=== PATIENT | male | born 1980 | race Caucasian/White ===

== ENCOUNTER → 2016-12-15 | Outpatient (CLI) | payer MEDICARE, MEDICAID ==
[~2016-12-15] MED LIST: AC325T PO; ACET1TAB43 PO; ALPR1T PO; ALPR2TAB2 PO; CLAR500T3 PO; CRS350T; CTLP20T PO; CYCL10TA9 PO; DEPAKOTE; ENOX30DI9 SQ; GBPN100C PO; HYDR-3720; HYDR1TAB PO; IBP800T PO; METO10TA3 PO; NF-ESOM40C; NFR150C PO; NORT25CA PO; ONDAN4ODT PO; OXYC-306 PO; OXYC1TAB28 PO; OXYC20TA4 PO; OXYC5TAB49 PO; SULF1TAB35 PO; TRM50T PO; XANAX; [UNRECOGNIZED DRUG - CODE] IV
--- NOTE | 2016-12-15 11:01 | Diagnostic Imaging Report ---
PROCEDURE: MRI right joint lower extremity without contrast. TECHNIQUE: Multiplanar, multisequence non contrast-enhanced MRI of the right lower extremity was accomplished. INDICATION: Right knee pain. History of internal fixation of proximal tibia fracture. FINDINGS: There is susceptibility artifact related to multiple internal fixating screws through the proximal tibia. Areas of visible marrow around the artifacts demonstrate no evidence of an acute bone contusion or focal bone lesion. In the lateral tibial plateau, there is a focal area of depression about 5 mm from the surface of the tibial plateau and measuring 4 mm in transverse dimension with significant anterior posterior extension throughout the lateral tibial plateau. There is also slight focal depression in the central aspect of the medial tibial plateau. There is evidence of mild to moderate cartilage thinning in the medial and lateral compartments with no significant cartilage thinning in the patellofemoral compartment. The extensor mechanism is intact. The ACL and the PCL are intact. There is degenerative signal in the posterior horn and body of the medial meniscus and attenuation of the posterior meniscus root. This could be degenerative and posttraumatic related with no acute tear. The lateral meniscus is largely absent. Thickened portion of the distal aspect of the popliteus tendon mimics and is displaced into expected location of the outer aspect of the posterior horn of the lateral meniscus. There are portions of central meniscus material seen presumably related to a bucket-handle tear along the posterior aspect of the intercondylar notch abutting the posterior margin of the ACL. The lateral collateral ligament components and MCL demonstrates no acute tear. There is no popliteal cyst. IMPRESSION: 1. Evidence of old fractures in the proximal tibia with internal fixation screws seen. 2. The lateral tibial plateau healed with an elongated depression deformity in its central aspect extending from the anterior to posterior aspect of the lateral tibial plateau. 3. There is moderate cartilage thinning in the medial and lateral compartments. 4. Largely macerated lateral meniscus with suggestion of remaining lateral meniscus torn fibers displaced into the posterior aspect of the intercondylar notch. 5. Thinning of the posterior root of the medial meniscus and degenerative signal, likely sequela of the old injury. Dictated by: Dictated on workstation # [id number]
== END ==
LOC: RAD 09:04
PROVIDERS: ATTEND Nurse Practitioner
DX: S83.271A Complex tear of lateral meniscus, current injury, right knee, initial encounter (principal); R93.8 Abnormal findings on diagnostic imaging of other specified body structures; X58.XXXA Exposure to other specified factors, initial encounter; Y99.8 Other external cause status
CPT/HCPCS: 73721

== ENCOUNTER 2018-02-11 18:04 | Inpatient (IN) | payer MEDICAID, MEDICARE ==
[~2018-02-11] VITALS: Ht 185.4 cm; Wt 108.0 kg
[2018-02-11] MEDS ORDERED: VORT5TAB (18:22)
[2018-02-11] MEDS ORDERED: GABA800T2 (18:22)
[2018-02-11] MEDS ORDERED: DICL75TA2 (18:22)
--- OUTSIDE RECORDS SUMMARY | 2018-02-11 18:37 | XMS REPORT ---
Author RENU Angelo [facility] eClinicalWorks Address Unknown Phone Unavailable Care Team Providers Care Cardiology Fellow Name Role Phone RENU ARRIAGA CP Unavailable Allergies, Adverse Reactions, Alerts Substance Reaction Event Type Codeine Info Not Available Drug Allergy Problems Problem Type Condition Code Onset Dates Condition Status Problem Phantom limb pain G54.6 Active Problem History of left above knee amputation Z89.612 Active Problem Arthritis of right knee M19.90 Active Assessment Phantom limb pain G54.6 Active Assessment History of left above knee amputation Z89.612 Active Assessment Arthritis of right knee M19.90 Active Medications Medication Code System Code Instructions Start Date End Date Status Dosage Gabapentin [facility] [id number] 600 MG Orally Three times a day Jan 05, 2016 1 tablet Procedures Procedure Coding System Code Date Office Visit, Est Pt., Level 3 CPT-4 91046 Jan 05, 2016 [facility] VIS[facility] ESTABLISHED PATIENT CPT-4 G0467 Jan 05, 2016 Vital Signs Date/Time: Jan 05, 2016 Cardiac Monitoring Heart Rate 72 bpm Weight 234.4 lbs Height 73 in BMI 30.92 Index Blood Pressure Diastolic 75 mmHg Blood Pressure Systolic 110 mmHg Results No Known Results Summary Purpose eClinicalWorks Submission
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
--- OUTSIDE RECORDS SUMMARY | 2018-02-11 18:37 | XMS REPORT ---
Author Author RENU ARRIAGA [facility] Address [address] [place] [address] Care Team Providers Care Appliance Sales Associate Name Role Phone RENU ARRIAGA Unavailable PROBLEMS Type Condition ICD9-CM Code FAG95-IX Code Onset Dates Condition Status SNOMED Code Assessment Pain in right shoulder M25.511 Apr, Active 31240018 Problem Other chronic pain G89.29 Active 21750292 Problem Reactive depression F32.9 Active 16871471 Problem Phantom limb pain G54.6 Active 1254938072502 Problem History of left above knee amputation Z89.612 Active 754890226 Problem Anxiety F41.9 Active 47674792 Problem Arthritis of right knee M19.90 Active 378583029 ALLERGIES Substance Reaction Event Type Date Status Codeine Unknown Drug Allergy Apr, Active SOCIAL HISTORY No smoking Hx information available PLAN OF CARE VITAL SIGNS Height 73 in 2016-04-23 Weight 251.1 lbs 2016-04-23 Heart Rate 60 bpm 2016-04-23 Respiratory Rate 18 2016-04-23 BMI 33.13 kg/m2 2016-04-23 Blood pressure systolic 118 mmHg 2016-04-23 Blood pressure diastolic 76 mmHg 2016-04-23 MEDICATIONS Medication Instructions Dosage Frequency Start Date End Date Duration Status Gabapentin 600 MG Orally 4 times a day 1 tablet 6h Jan, Active Trintellix 5 mg orally once a day 1 tablet 24h Apr, Active RESULTS No Results PROCEDURES Procedure Date Ordered Related Diagnosis Body Site [facility] VISIT ESTABLISHED PATIENT Apr 23, 2016 Office Visit, Est Pt., Level 3 Apr 23, 2016 IMMUNIZATIONS No Known Immunizations
--- OUTSIDE RECORDS SUMMARY | 2018-02-11 18:37 | XMS REPORT ---
Author RENU Angelo Organization eClinical[employer] Address Unknown Phone Unavailable Care Team Providers Care Finishing Machine Tender Name Role Phone RENU ARRIAGA CP Unavailable Allergies No Known Allergies Problems Problem Type Condition Code Onset Dates Condition Status Problem Reactive depression F32.9 Active Problem Anxiety F41.9 Active Problem Other chronic pain G89.29 Active Problem History of left above knee amputation Z89.612 Active Problem Arthritis of right knee M19.90 Active Problem Phantom limb pain G54.6 Active Medications No Known Medications Results No Known Results Summary Purpose eClinicalWorks Submission
--- OUTSIDE RECORDS SUMMARY | 2018-02-11 18:37 | XMS REPORT ---
Author Author TELLY YI [facility] Address [address] [place] [address] Care Team Providers Care Supplier Engineer Name Role Phone TELLY YI Unavailable PROBLEMS Type Condition ICD9-CM Code GOZ26-ZJ Code Onset Dates Condition Status SNOMED Code Problem Phantom limb pain G54.6 Active 0642868941048 Problem History of left above knee amputation Z89.612 Active 527029811 Problem Acute medial meniscus tear of right knee, initial encounter S83.241A Active 916399823 Problem Degenerative tear of glenoid labrum of right shoulder M24.111 Active 160928208 Problem Anxiety F41.9 Active 03498051 Problem Arthritis of right knee M19.90 Active 588614312 Problem Other chronic pain G89.29 Active 00183947 Problem Reactive depression F32.9 Active 06502710 ALLERGIES No Information ENCOUNTERS Encounter Location Date Diagnosis [place] [id number] [place] [address]15- [address]46 Sep, Medicare annual wellness visit, initial Z00.00 ; History of left above knee amputation Z89.612 ; Phantom limb pain G54.6 ; Reactive depression F32.9 and BMI 32.0-32.9,adult Z68.32 [facility] [id number] [place] [address] 93368- 2778 May, Arthritis of right knee M19.90 [facility] [address] [address] May, [facility] [address] [id number] [place] [address] 70500- 4836 May, [facility] [address] [place] [id number] [place] [address] 56926- 4718 Apr, Acute medial meniscus tear of right knee, initial encounter S83.241A [facility] [address] [address] Apr, Acute medial meniscus tear of right knee, subsequent encounter S83.241D [facility] [address] [address] Mar, [facility] [id number] [place] [address] 26024- 2835 Mar, [facility] [id number] [place] [address] 25751- 2648 Dec, [facility] [id number] [place] [address] 76202- 6345 Dec, [facility] [id number] [place] [address] 26399- 3226 Dec, Acute medial meniscus tear of right knee, subsequent encounter S83.241D [facility] [address] [id number] [place] [address] 28413- 8301 Nov, Complex tear of lateral meniscus of right knee as current injury, initial encounter S83.271A and Impingement syndrome of right shoulder M75.41 [facility] [id number] [place] [address] 48562- 1172 October, [facility] [id number] [place] [address] 63603- 2235 Aug, Phantom limb pain G54.6 and Reactive depression F32.9 [facility] [address] [id number] [place] [address] 46336- 3156 Jun, Degenerative tear of glenoid labrum of right shoulder M24.111 [facility] [id number] [place] [address] 74046- 7478 Apr, [facility] [id number] [place] [address] 05016- 5600 Apr, [facility] [id number] [place] [address] 77777- 4382 Apr, [facility] [address] [place] [address] 81357- 0943 Apr, Pain in right shoulder M25.511 ; Other chronic pain G89.29 and Reactive depression F32.9 [facility] [id number] [place] [address] 66544- 6141 Mar, Phantom limb pain G54.6 ; Reactive depression F32.9 and History of left above knee amputation Z89.612 [facility] [id number] [place] [address] 75748- 0726 Feb, Anxiety F41.9 [facility] [id number] [place] [address] 03771- 6620 Jan, History of left above knee amputation Z89.612 ; Arthritis of right knee M19.90 and Phantom limb pain G54.6 [facility] [id number] [place] [address] 13908- 1287 Aug, Shoulder pain, right M25.511 [facility] [address] [place] [address] [id number] [place] [address] 98827- 8493 May, [facility] [id number] [place] [address] 79914- 3976 May, [facility] [id number] [place] [address] 18161- 4006 May, [facility] [id number] [place] [address] 41289 2541 May, [facility] [address] [place] [address] 34524- 1082 May, History of left above knee amputation Z89.612 and Nicotine dependence F17.200 [facility] [address] [place] [address] 94929- 2546 14 Sep, 2014 [facility] [address] [place] [address] [id number] [place] [address] 24880- 6753 Sep, [facility] [address] [id number] [place] [address] 6161 Aug, [facility] [place] [facility] [address] [id number] [place] [address]- 8741 Aug, [facility] [place] [facility] [address] [id number] [place] [address]- 6192 Jul, [facility] [place] [facility] [address] [id number] [place] [address]- 1418 Jul, [facility] [place] [facility] [address] [id number] [place] [address]- 8655 Feb, [facility] [place] [facility] [address] [id number] [place] [address]- 8166 Jan, [facility] [place] [facility] [address] [id number] [place] [address]- 9559 Nov, [facility] [place] [facility] [address] [id number] [place] [address]- 3578 Sep, [facility] [place] [facility] [address] [id number] [place] [address]- 8137 Jul, [facility] [place] [facility] [address] [id number] [place] [address]- 4457 Jul, [facility] [place] [facility] [address] [id number] [place] [address]- 7370 May, [facility] [place] [facility] [address] [id number], [place] [address]- 5205 May, [facility] [place] [facility] [address] [id number] [place] [address]- 7157 May, [facility] [place] [facility] [address] [id number] [place] [address]- 9405 May, [facility] [place] [facility] [address] [id number] [place] [address] May, [facility] [place] [facility] [address] [id number], [place] [address]- 0221 May, [facility] [place] [facility] [address] [id number] [place] [address]- 8838 Apr, [facility] [place] [facility] [id number] [address]- 9861 Apr, [facility] [place] [facility] [address] [place] [address] [id number] [place] [address]- 2720 Apr, [facility] [place] [facility] [address] [id number], [place] [address]- 6995 Apr, [facility] [place] [facility] [address] [place] [address] [id number] [place] [address]- 4125 Apr, [facility] [place] [facility] [id number] [address]- 1745 Apr, [facility] [place] [facility] [address] [address]- 6845 Apr, [facility] [place] [facility] [address] [address]- 2707 Apr, [facility] [place] [facility] [address] [address]- 9824 Mar, [facility] [address] [id number] [id number] Mar, [facility] [place] [facility] [address] [address]- 6122 Mar, [facility] [place] [facility] [id number], [place] [address]- 6587 Mar, [facility] [place] [facility] [id number] [address]- 7297 Mar, [facility] [place] [facility] [id number], [place] [address]- 5366 Sep, [facility] [place] [facility] [id number], [place] [address]- 3215 Jul, [facility] [place] [facility] [address] [facility] [id number], [place] [address]- 9806 Jul, [facility] [address] [facility] [id number], [place] [address]- 3286 Jul, [facility] [address] [facility] [id number], [place] [address]- 2226 Jun, [facility] [address] [facility] [id number] [place] [address] 97136- 3394 Jun, [facility] [address] [facility] [id number] [place] [address]- 7203 May, [facility] [address] [facility] [id number] [place] 1768 May, [facility] [id number] 6352 May, [facility] [address] [address]- 9324 May, [facility] [address] 6186 May, [facility] [address] [address]- 6018 May, [facility] [address] [address]- 3344 Apr, [facility] [address] [facility] [id number], [place] [address]- 9728 Apr, [facility] [address] [place] [id number] [address]- 2852 Mar, [facility] [address] [address]- 1185 Mar, [facility] [address] [id number] [address]- 3324 Feb, IMMUNIZATIONS No Known Immunizations SOCIAL HISTORY Never Assessed REASON FOR VISIT Referral PLAN OF CARE VITAL SIGNS MEDICATIONS No Known Medications RESULTS No Results PROCEDURES No Known procedures INSTRUCTIONS MEDICATIONS ADMINISTERED No Known Medications MEDICAL [...]
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
--- OUTSIDE RECORDS SUMMARY | 2018-02-11 18:38 | XMS REPORT ---
Author Author RENU ARRIAGA [facility] Address [address] [place] [address] Care Team Providers Care Global President Name Role Phone RENU ARRIAGA Unavailable PROBLEMS Type Condition ICD9-CM Code SEX59-FA Code Onset Dates Condition Status SNOMED Code Problem Phantom limb pain G54.6 Active 3867057952444 Problem History of left above knee amputation Z89.612 Active 462564290 Problem Acute medial meniscus tear of right knee, initial encounter S83.241A Active 123944647 Problem Degenerative tear of glenoid labrum of right shoulder M24.111 Active 008535327 Problem Anxiety F41.9 Active 87419965 Problem Arthritis of right knee M19.90 Active 567880578 Problem Other chronic pain G89.29 Active 60267236 Problem Reactive depression F32.9 Active 62634726 ALLERGIES Substance Reaction Event Type Date Status Codeine Unknown Drug Allergy May, Active ENCOUNTERS Encounter Location Date Diagnosis [facility] [id number] [place] [address] 56727- 0775 Sep, Medicare annual wellness visit, initial Z00.00 ; History of left above knee amputation Z89.612 ; Phantom limb pain G54.6 ; Reactive depression F32.9 and BMI 32.0-32.9,adult Z68.32 [facility] [address] [place] [address] 13845- 0512 May, Arthritis of right knee M19.90 [facility] [id number] [place] [address] 61535- 6742 May, [facility] [id number] [place] [address] 68414- 8170 May, [facility] [id number] [place] [address] 84626- 8291 Apr, Acute medial meniscus tear of right knee, initial encounter S83.241A [facility] [address] [address] 2359 Apr, Acute medial meniscus tear of right knee, subsequent encounter S83.241D [facility] [address] [address] 4590 Mar, [facility] [id number] [place] [address] 54929- 5585 Mar, [facility] [id number] [address]- 2036 Dec, [facility] [id number] [place] [address] 86646- 2087 Dec, [facility] [address] [address]- 7188 Dec, Acute medial meniscus tear of right knee, subsequent encounter S83.241D [facility] [address] [place] [address] 56209- 5924 Nov, Complex tear of lateral meniscus of right knee as current injury, initial encounter S83.271A and Impingement syndrome of right shoulder M75.41 [facility] [address] [address]- 8284 October, [facility] [address] [place] [address] 44067- 5952 Aug, Phantom limb pain G54.6 and Reactive depression F32.9 [facility] [address] [place] [address] 63385- 2816 Jun, Degenerative tear of glenoid labrum of right shoulder M24.111 [facility] [address] [place] [address] 86411- 9226 Apr, [facility] [address] [address]- 9168 Apr, [facility] [id number] [place] [address] 46786- 7796 Apr, [facility] [id number] [place] [address] 78034- 0130 Apr, Pain in right shoulder M25.511 ; Other chronic pain G89.29 and Reactive depression F32.9 [facility] [id number] [place] [address] 88177- 6411 Mar, Phantom limb pain G54.6 ; Reactive depression F32.9 and History of left above knee amputation Z89.612 [facility] [id number] [place] [address] 69852- 1984 Feb, Anxiety F41.9 [facility] [id number] [place] [address] 38753- 6050 Jan, History of left above knee amputation Z89.612 ; Arthritis of right knee M19.90 and Phantom limb pain G54.6 [facility] [id number] [place] [address] 61059- 2742 Aug, Shoulder pain, right M25.511 [facility] [address] 76254- 7087 May, [facility] [id number] [place] [address] 26391- 5187 May, [facility] [id number] [place] [address] 33032- 9502 May, [facility] [id number] [place] [address] 79661- 1100 May, [facility] [id number] [place] [address] 25954- 0262 May, History of left above knee amputation Z89.612 and Nicotine dependence F17.200 [facility] [id number] [place] [address] 01003- 6797 Sep, [facility] [address] 83565- 5828 Sep, [facility] [address] [id number] [place] [address]- 6947 Aug, [facility] [place] [facility] [address] [id number] [place] [address]- 1865 Aug, [facility] [address] [id number] [place] [address]- 3570 Jul, [facility] [place] [facility] [address] [id number] [place] [address]- 2730 Jul, [facility] [address] [id number] [place] [address]- 1873 Feb, [facility] [address] [id number] [place] [address]- 0754 Jan, [facility] [address] [facility] [id number] [place] [address]- 4084 Nov, [facility] [address] [facility] [id number] [place] [address]- 2168 Sep, [facility] [address] [facility] [id number] [place] [address]- 1287 Jul, [facility] [address] [facility] [id number] [place] [address]- 4063 Jul, [facility] [address] [facility] [id number] [place] [address]- 9234 May, [facility] [place] [facility] [address] [id number] [place] [address]- 0659 May, [facility] [place] [facility] [address] [id number] [place] [address]- 8306 May, [facility] [place] [facility] [address] [facility] [id number] [place] [address]- 7661 May, [facility] [address] [facility] [id number] [place] 9130 May, [facility] [place] [facility] [address] [id number] [place] [address]- 0631 May, [facility] [place] [facility] [address] [id number] [place] [address]- 6876 Apr, [facility] [place] [facility] [address] [id number] [place] [address]- 5161 Apr, [facility] [place] [facility] [address] [id number] [place] [address]- 6460 Apr, [facility] [place] [facility] [address] [id number] [place] [address]- 6868 Apr, [facility] [place] [facility] [address] [id number] [place] [address]- 8847 Apr, [facility] [place] [facility] [address] [id number] [place] [address]- 1068 Apr, [facility] [place] [facility] [address] [id number] [place] [address]- 6117 Apr, [facility] [place] [facility] [address] [id number] [place] [address]- 3565 Apr, [facility] [place] [facility] [address] [facility] [id number] [place] [address]- 9045 Mar, [facility] [address] [facility] [id number] [address] Mar, [facility] [place] [facility] [address] [id number] [address]- 3408 Mar, [facility] [place] [facility] [address] [id number] [place] [address]- 9873 Mar, [facility] [place] [facility] [address] [id number] [place] [address]- 1986 Mar, [facility] [place] [facility] [address] [id number] [place] [address]- 0661 Sep, [facility] [place] [facility] [address] [id number] [address]- [address] 16 Jul, 2011 [facility] [address] [facility] [id number] [address]- 6308 Jul, [facility] [address] [facility] [id number] [address]- 2836 Jul, [facility] [address] [facility] [id number][place] [address]- 3296 Jun, [facility] [address] [facility] [id number][place] [address]- 0449 Jun, [facility] [address] [facility] [id number], [place] [address]- 6005 May, [facility] [address] [facility] [id number] [address]- 4120 May, [facility] [address] [place] [address] 863757- 8846 May, [facility] [address] [facility] [id number] [address]- 5584 May, [facility] [address] 3418 May, [facility] [address] [facility] [id number] 1546 May, [facility] [address] [address]- 2920 Apr, [facility] [address] [facility] [id number][place] [address]- 3715 Apr, [facility] [address] [facility] [id number], [place] [address]- 9084 Mar, [facility] [address] [facility] [id number][place] [address]- 3078 Mar, [facility] [address] [id number] [address]- 9630 13 Feb, 2010 IMMUNIZATIONS No Known Immunizations SOCIAL HISTORY Never Assessed REASON FOR VISIT discuss pain jitendra Sheets MA PLAN OF CARE Activity Details Follow Up 6 Months Reason: VITAL SIGNS Height 73 in 2017-05-13 Weight 251.3 lbs 2017-05-13 Temperature 98.3 degrees Fahrenheit 2017-05-13 Heart Rate 76 bpm 2017-05-13 Respiratory Rate 18 2017-05-13 BMI 33.15 kg/m2 2017-05-13 Blood pressure systolic 124 mmHg 2017-05-13 Blood pressure diastolic 82 mmHg 2017-05-13 MEDICATIONS Medication Instructions Dosage Frequency Start Date End Date Duration Status Diclofenac Sodium 75 MG Orally Twice a day 1 tablet with food or milk 12h 30 Active Trintellix 5 mg orally once a day 1 tablet 24h 18 Apr, 2016 Active Gabapentin 800 MG TAKE ONE TABLET BY MOUTH FOUR TIMES DAILY 30 Active RESULTS No Results PROCEDURES Procedure Date Ordered Result Body Site [facility] VISIT ESTABLISHED PATIENT May 13, 2017 INSTRUCTIONS MEDICATIONS ADMINISTERED No Known Medications [...]
--- OUTSIDE RECORDS SUMMARY | 2018-02-11 18:38 | XMS REPORT ---
Author RENU Angelo Organization [employer] Address Unknown Phone Unavailable Care Team Providers Care Welding Robot Operator Name Role Phone RENU ARRIAGA CP Unavailable Allergies, Adverse Reactions, Alerts Substance Reaction Event Type Codeine Info Not Available Drug Allergy Problems Problem Type Condition Code Onset Dates Condition Status Problem Counseling on substance use and abuse V65.42 Active Problem Anxiety state, unspecified 300.00 Active Problem History of left above knee amputation Z89.612 Active Assessment Nicotine dependence F17.200 Active Problem Posttraumatic stress disorder 309.81 Active Assessment History of left above knee amputation Z89.612 Active Medications Medication Code System Code Instructions Start Date End Date Status Dosage Chantix [facility] [address]-73 1 MG Orally Twice a day May 08, 2015 1 tablet Procedures Procedure Coding System Code Date Office Visit, Est Pt., Level 3 CPT-4 75389 May 08, 2015 [facility] VISIT ESTABLISHED PATIENT CPT-4 G0467 May 08, 2015 Vital Signs Date/Time: May 08, 2015 Temperature 98.7 F Weight 228.9 lbs Height 73 in BMI 30.20 Index Blood Pressure Diastolic 84 mmHg Blood Pressure Systolic 124 mmHg Cardiac Monitoring Heart Rate 84 bpm Results No Known Results Summary Purpose [employer] Submission
--- OUTSIDE RECORDS SUMMARY | 2018-02-11 18:38 | XMS REPORT ---
Author Author RENU ARRIAGA [facility] Address [address] [place] [address] Care Team Providers Care Automatic Clipper And Stripper Name Role Phone RENU ARRIAGA Unavailable PROBLEMS Type Condition ICD9-CM Code AOR07-HM Code Onset Dates Condition Status SNOMED Code Problem History of left above knee amputation Z89.612 Active 971052581 Problem Degenerative tear of glenoid labrum of right shoulder M24.111 Active 365026822 Problem Other chronic pain G89.29 Active 72634258 Problem Arthritis of right knee M19.90 Active 616172334 Problem Phantom limb pain G54.6 Active 6117882053241 Problem Reactive depression F32.9 Active 71928764 Problem Anxiety F41.9 Active 22223283 ALLERGIES No Information SOCIAL HISTORY Never Assessed PLAN OF CARE VITAL SIGNS MEDICATIONS Unknown Medications RESULTS No Results PROCEDURES No Known procedures IMMUNIZATIONS No Known Immunizations MEDICAL (GENERAL) HISTORY Type Description Date Medical [...]
--- OUTSIDE RECORDS SUMMARY | 2018-02-11 18:38 | XMS REPORT ---
Author Author RENU ARRIAGA Organization [facility] Address [address] [place] [address] Care Team Providers Care Beef Pluck Trimmer Name Role Phone RENU ARRIAGA Unavailable PROBLEMS Type Condition ICD9-CM Code SIL57-YY Code Onset Dates Condition Status SNOMED Code Problem Phantom limb pain G54.6 Active 7806439113816 Problem History of left above knee amputation Z89.612 Active 475044794 Problem Acute medial meniscus tear of right knee, initial encounter S83.241A Active 504137868 Problem Degenerative tear of glenoid labrum of right shoulder M24.111 Active 818101226 Problem Anxiety F41.9 Active 89324253 Problem Arthritis of right knee M19.90 Active 881371302 Problem Other chronic pain G89.29 Active 55149165 Problem Reactive depression F32.9 Active 03073851 ALLERGIES No Information ENCOUNTERS Encounter Location Date Diagnosis [id number] [place] [address] 74680- 3444 Sep, Medicare annual wellness visit, initial Z00.00 [facility] [address] [place] [address] 03491- 3686 May, Arthritis of right knee M19.90 [facility] [address] [place] [address] 77272- 4760 May, [facility] [id number] [place] [address] 72207- 2222 May, [facility] [id number] [place] [address] 87631- 5033 Apr, Acute medial meniscus tear of right knee, initial encounter S83.241A [facility] [id number] [place] [address] 76117- 9533 02 Apr, 2017 Acute medial meniscus tear of right knee, subsequent encounter S83.241D [facility] [address] [address]- 7163 Mar, [facility] [id number] [place] [address] 67978- 8826 Mar, [facility] [id number] [place] [address] 91751- 6674 Dec, [facility] [id number] [place] [address] 26212- 6589 Dec, [facility] [id number] [place] [address] 16224- 7695 Dec, Acute medial meniscus tear of right knee, subsequent encounter S83.241D [facility] [id number] [place] [address] 81546- 6513 Nov, Complex tear of lateral meniscus of right knee as current injury, initial encounter S83.271A and Impingement syndrome of right shoulder M75.41 [facility] [id number] [place] [address] 17855- 5454 October, [facility] [id number] [place] [address] 72019- 4109 Aug, Phantom limb pain G54.6 and Reactive depression F32.9 [facility] [address] [place] [address] 48943- 8850 Jun, Degenerative tear of glenoid labrum of right shoulder M24.111 [facility] [address] [address]- 4808 Apr, [facility] [id number] [place] [address] 00150- 1445 Apr, [facility] [id number] [address]- 5632 Apr, [facility] [address] [place] [address] 66363- 8959 Apr, Pain in right shoulder M25.511 ; Other chronic pain G89.29 and Reactive depression F32.9 [facility] [id number] [place] [address] 75625- 8643 Mar, Phantom limb pain G54.6 ; Reactive depression F32.9 and History of left above knee amputation Z89.612 [facility] [id number] [place] [address] 47457- 8979 Feb, Anxiety F41.9 [facility] [id number] [place] [address] 62009 2543 Jan, History of left above knee amputation Z89.612 ; Arthritis of right knee M19.90 and Phantom limb pain G54.6 [facility] [id number] [place] [address] 10974- 0690 Aug, Shoulder pain, right M25.511 [facility] [id number] [place] [address] 81037- 7926 May, [facility] [id number] [place] [address] 17341- 5569 May, [facility] [id number] [place] [address] 15120- 1373 May, [facility] [id number] [place] [address] 97143- 6227 May, [facility] [id number] [place] [address] 30743- 2542 May, History of left above knee amputation Z89.612 and Nicotine dependence F17.200 [facility] [id number] [place] [address] 27826- 0536 Sep, [facility] [id number] [place] [address] 31461- 2996 Sep, [facility] [id number] [place] [address] 28673- 1670 Aug, [facility] [id number] [place] [address]- 6186 Aug, [facility] [address] [id number] [place] [address]- 5310 Jul, [facility] [place] [facility] [address] [id number] [place] [address]- 0556 Jul, [facility] [address] [id number] [place] [address]- 1846 Feb, [facility] [place] [facility] [address] [id number] [place] [address]- 1972 Jan, [facility] [address] [id number] [place] [address]- 2586 Nov, [facility] [place] [facility] [address] [id number] [place] [address]- 1126 Sep, [facility] [address] [id number] [place] [address]- 3925 Jul, [facility] [address] [id number] [place] [address]- 2588 Jul, [facility] [address] [id number] [place] [address]- 0581 May, [facility] [address] [facility] [id number] [place] [address]- 7482 May, [facility] [place] [facility] [address] [id number] [place] [address] 2546 May, [facility] [place] [facility] [address] [id number] [place] [address] 2547 May, [facility] [place] [facility] [address] [id number] [place] [address]- 4256 May, [facility] [place] [facility] [address] [facility] [id number] [place] [address]- 2546 May, [facility] [place] [facility] [address] [facility] [id number] [place] [address]- 4553 Apr, [facility] [place] [facility] [address] [id number] [place] [address]- 4745 Apr, [facility] [place] [facility] [address] [id number] [place] [address]- 9534 Apr, [facility] [place] [facility] [address] [id number] [place] [address]- 5930 Apr, [facility] [place] [facility] [address] [id number] [place] [address]- 6834 Apr, [facility] [place] [facility] [address] [id number] [place] [address]- 3760 Apr, [facility] [place] [facility] [address] [id number] [place] [address]- 5285 Apr, [facility] [place] [facility] [address] [facility] [id number] [place] [address]- 1518 Apr, [facility] [place] [facility] [id number] [address]- 8290 Mar, [facility] [address] [facility] [id number] [id number] Mar, [facility] [place] [facility] [id number] [place] [place] [address]- 7739 Mar, [facility] [place] [facility] [address] [facility] [id number], [place] [address]- 2446 Mar, [facility] [place] [facility] [address] [facility] [id number], [place] [address]- 0371 Mar, [facility] [place] [facility] [address] [facility] [id number] [place] [address] Sep, [facility] [place] [facility] [address] [facility] [id number], [place] [address] Jul, [facility] [place] [facility] [address] [facility] [id number], [place] [address] Jul, [facility] [place] [facility] [id number] [address] Jul, [facility] [id number] [address] Jun, [facility] [id number] [address] Jun, [facility] [id number] [address] May, [facility] [address] [facility] [id number][place] [address] May, [facility] [id number] [place] [address] May, [facility] [id number] [address] May, [facility] [id number] [place] [address] May, [facility] [id number] [address] May, [facility] [id number], [place] [address] Apr, [facility] [id number] [address] Apr, [facility] [id number] [address] Mar, [facility] [id number] [address] Mar, [facility] [id number], [place] [address] Feb, IMMUNIZATIONS No Known Immunizations SOCIAL HISTORY Never Assessed REASON FOR VISIT knee pain PLAN OF CARE VITAL SIGNS MEDICATIONS Medication Instructions Dosage Frequency Start Date End Date Duration Status Diclofenac Sodium 75 MG Orally Twice a day 1 tablet with food or milk 12h 24 Dec, 2016 Mar, 30 day(s) Active RESULTS No Results PROCEDURES No Known procedures [...]
--- OUTSIDE RECORDS SUMMARY | 2018-02-11 18:38 | XMS REPORT ---
Author RENU Angelo [facility] eClinicalWorks Address Unknown Phone Unavailable Care Team Providers Care Inspector Materials And Processes Name Role Phone RENU ARRIAGA CP Unavailable Allergies, Adverse Reactions, Alerts Substance Reaction Event Type Codeine Info Not Available Drug Allergy Problems Problem Type Condition Code Onset Dates Condition Status Problem Arthritis of right knee M19.90 Active Problem Phantom limb pain G54.6 Active Problem Anxiety F41.9 Active Problem History of left above knee amputation Z89.612 Active Assessment Anxiety F41.9 Active Medications Medication Code System Code Instructions Start Date End Date Status Dosage Valium [facility] [address]-10 5 mg Orally Once a day, no more than 4/wk Feb 1 tablet as needed Gabapentin [facility] [address]-06 600 MG Orally Three times a day Jan 05, 2016 1 tablet Procedures Procedure Coding System Code Date Office Visit, Est Pt., Level 3 CPT-4 63113 Mar 05, 2016 [facility] VISIT ESTABLISHED PATIENT CPT-4 G0467 Mar 05, 2016 Vital Signs Date/Time: Mar 05, 2016 Cardiac Monitoring Heart Rate 64 bpm Weight 230 lbs Height 73 in BMI 30.34 Index Blood Pressure Diastolic 90 mmHg Blood Pressure Systolic 140 mmHg Results No Known Results Summary Purpose eClinicalWorks Submission
--- OUTSIDE RECORDS SUMMARY | 2018-02-11 18:38 | XMS REPORT ---
Author RENU Angelo [facility] eClinicalWorks Address Unknown Phone Unavailable Care Team Providers Care Supervisor Blast Furnace Name Role Phone RENU ARRIAGA CP Unavailable Allergies, Adverse Reactions, Alerts Substance Reaction Event Type Codeine Info Not Available Drug Allergy Problems Problem Type Condition Code Onset Dates Condition Status Assessment History of left above knee amputation Z89.612 Active Problem Anxiety F41.9 Active Problem Arthritis of right knee M19.90 Active Problem Reactive depression F32.9 Active Assessment Phantom limb pain G54.6 Active Assessment Reactive depression F32.9 Active Problem Phantom limb pain G54.6 Active Problem History of left above knee amputation Z89.612 Active Medications Medication Code System Code Instructions Start Date End Date Status Dosage Gabapentin [facility] [address]-72 600 MG Orally 4 times a day Jan 05, 2016 1 tablet Procedures Procedure Coding System Code Date Office Visit, Est Pt., Level 3 CPT-4 33187 Apr 02, 2016 [facility] VISIT ESTABLISHED PATIENT CPT-4 G0467 Apr 02, 2016 Vital Signs Date/Time: Apr 02, 2016 Cardiac Monitoring Heart Rate 62 bpm Weight 246 lbs Height 73 in BMI 32.45 Index Blood Pressure Diastolic 88 mmHg Blood Pressure Systolic 142 mmHg Results No Known Results Summary Purpose eClinicalWorks Submission
--- OUTSIDE RECORDS SUMMARY | 2018-02-11 18:38 | XMS REPORT ---
Author Author RENU ARRIAGA Organization [facility] Address [address] [place] [address] Care Team Providers Care Seed Collector Name Role Phone RENU ARRIAGA Unavailable PROBLEMS Type Condition ICD9-CM Code HUW59-CE Code Onset Dates Condition Status SNOMED Code Problem Phantom limb pain G54.6 Active 0684985645906 Problem History of left above knee amputation Z89.612 Active 231518210 Problem Acute medial meniscus tear of right knee, initial encounter S83.241A Active 690191155 Problem Degenerative tear of glenoid labrum of right shoulder M24.111 Active 114300595 Problem Anxiety F41.9 Active 83335043 Problem Arthritis of right knee M19.90 Active 366394670 Problem Other chronic pain G89.29 Active 03186960 Problem Reactive depression F32.9 Active 48218371 ALLERGIES No Information ENCOUNTERS Encounter Location Date Diagnosis [place] [id number] [place] [address]487[address] Sep, Medicare annual wellness visit, initial Z00.00 ; History of left above knee amputation Z89.612 ; Phantom limb pain G54.6 ; Reactive depression F32.9 and BMI 32.0-32.9,adult Z68.32 [facility] [address] [place] [address]686[address] 4387 May, Arthritis of right knee M19.90 [facility] [address] [address] May, [facility] [id number] [place] [address]130- 4438 May, [facility] [address] [place] [address] 01547- 7903 Apr, Acute medial meniscus tear of right knee, initial encounter S83.241A [facility] [address] [address] Apr, Acute medial meniscus tear of right knee, subsequent encounter S83.241D [facility] [address] [address] Mar, [facility] [id number] [place] [address] 26814- 4007 Mar, [facility] [id number] [place] [address] 45718- 1458 Dec, [facility] [id number] [place] [address] 26471- 1603 Dec, [facility] [id number] [place] [address] 70063- 1735 Dec, Acute medial meniscus tear of right knee, subsequent encounter S83.241D [facility] [id number] [place] [address] 22024- 8732 Nov, Complex tear of lateral meniscus of right knee as current injury, initial encounter S83.271A and Impingement syndrome of right shoulder M75.41 [facility] [id number] [place] [address] 17173- 5329 October, [facility] [id number] [place] [address] 85249- 0299 Aug, Phantom limb pain G54.6 and Reactive depression F32.9 [facility] [id number] [place] [address] 44707- 2515 Jun, Degenerative tear of glenoid labrum of right shoulder M24.111 [facility] [id number] [place] [address] 20220- 4936 Apr, [facility] [id number] [place] [address] 04815- 7358 Apr, [facility] [id number] [place] [address] 67502- 9503 Apr, [facility] [address] [place] [address] 26580- 4234 Apr, Pain in right shoulder M25.511 ; Other chronic pain G89.29 and Reactive depression F32.9 [facility] [id number] [place] [address] 74778- 8039 Mar, Phantom limb pain G54.6 ; Reactive depression F32.9 and History of left above knee amputation Z89.612 [facility] [id number] [place] [address] 92349- 4117 Feb, Anxiety F41.9 [facility] [id number] [place] [address] 51575- 4802 Jan, History of left above knee amputation Z89.612 ; Arthritis of right knee M19.90 and Phantom limb pain G54.6 [facility] [id number] [place] [address] 65183- 1019 Aug, Shoulder pain, right M25.511 [facility] [id number] [place] [address] 46900- 7658 May, [facility] [id number] [place] [address] 91915- 2896 May, [facility] [id number] [place] [address] 04676- 1896 May, [facility] [id number] [place] [address] 71404 2544 May, [facility] [address] [place] [address] 59910- 6546 May, History of left above knee amputation Z89.612 and Nicotine dependence F17.200 [facility] [address] [place] [address] 13124- 2546 14 Sep, 2014 [facility] [id number] [place] [address] 99470- 3584 Sep, [facility] [address] [id number] [place] [address] 8202 Aug, [facility] [place] [facility] [address] [id number] [place] [address]- 1075 Aug, [facility] [place] [facility] [address] [id number] [place] [address]- 2836 Jul, [facility] [place] [facility] [address] [id number] [place] [address]- 9637 Jul, [facility] [place] [facility] [address] [id number] [place] [address]- 1125 Feb, [facility] [place] [facility] [address] [id number] [place] [address]- 7745 Jan, [facility] [place] [facility] [address] [id number] [place] [address]- 9454 Nov, [facility] [place] [facility] [address] [id number] [place] [address]- 7586 Sep, [facility] [place] [facility] [address] [id number] [place] [address]- 7377 Jul, [facility] [place] [facility] [address] [id number] [place] [address]- 3310 Jul, [facility] [place] [facility] [address] [id number] [place] [address]- 6113 May, [facility] [place] [facility] [address] [id number] [address] 1614 May, [facility] [place] [facility] [address] [id number] [place] [address]- 8771 May, [facility] [place] [facility] [address] [id number] [place] [address]- 8040 May, [facility] [place] [facility] [address] [id number] [place] [address] May, [facility] [place] [facility] [address] [id number] [address]- 3077 May, [facility] [place] [facility] [address] [id number] [place] [address]- 0159 Apr, [facility] [place] [facility] [id number] [address]- 1049 Apr, [facility] [place] [facility] [id number] [place] [address]- 3263 Apr, [facility] [place] [facility] [address] [id number] [place] [address]- 3296 Apr, [facility] [place] [facility] [id number] [place] [address]- 7322 Apr, [facility] [place] [facility] [id number] [address]- 6342 Apr, [facility] [place] [facility] [address] [address]- 7024 Apr, [facility] [place] [facility] [address] [address]- 0367 Apr, [facility] [place] [facility] [address] [address]- 5[address] Mar, [facility] [address] [id number] [id number] Mar, [facility] [place] [facility] [address] [address]- 4772 Mar, [facility] [place] [facility] [id number] [address]- 5891 Mar, [facility] [place] [facility] [id number] [address]- 0643 Mar, [facility] [place] [facility] [id number] [address]- 3073 Sep, [facility] [place] [facility] [id number] [address]- 4477 Jul, [facility] [place] [facility] [address] [facility] [id number] [place] [address]- 0336 Jul, [facility] [address] [facility] [id number] [place] [address] Jul, [facility] [address] [facility] [id number] [place] [address]- 3116 Jun, [facility] [address] [facility] [id number] [address]- 3587 Jun, [facility] [address] [facility] [id number] [place] [address]- 7317 May, [facility] [address] [facility] [id number] [place] [address]- 9307 May, [facility] [id number] [address]- 4948 May, [facility] [address] [address]- 4643 May, [facility] [address] [address]- 9159 May, [facility] [address] [address]- 1392 May, [facility] [address] [address]- 5685 Apr, [facility] [address] [facility] [id number] [place] [address]- 4781 Apr, [facility] [address] [facility] [id number] [place] [address]- 9803 Mar, [facility] [address] [facility] [id number] [place] [address]- 7198 Mar, [facility] [id number] Feb, IMMUNIZATIONS No Known Immunizations SOCIAL HISTORY Never Assessed REASON FOR VISIT Requests return call PLAN OF CARE VITAL SIGNS MEDICATIONS No [...]
--- OUTSIDE RECORDS SUMMARY | 2018-02-11 18:39 | XMS REPORT ---
Author Author TELLY YI [facility] Address [address] [place] [address] Care Team Providers Care Fruit Grading Supervisor Name Role Phone TELLY YI Unavailable PROBLEMS Type Condition ICD9-CM Code PMJ62-AL Code Onset Dates Condition Status SNOMED Code Problem History of left above knee amputation Z89.612 Active 977760330 Problem Degenerative tear of glenoid labrum of right shoulder M24.111 Active 879910119 Problem Other chronic pain G89.29 Active 55855205 Problem Arthritis of right knee M19.90 Active 382070062 Problem Phantom limb pain G54.6 Active 6992045916851 Problem Reactive depression F32.9 Active 49537531 Problem Anxiety F41.9 Active 79346792 ALLERGIES Unknown Allergies SOCIAL HISTORY No smoking Hx information available PLAN OF CARE VITAL SIGNS Height 73 in 2016-06-10 Blood pressure systolic 136 mmHg 2016-06-10 Blood pressure diastolic 82 mmHg 2016-06-10 MEDICATIONS Unknown Medications RESULTS No Results PROCEDURES Procedure Date Ordered Related Diagnosis Body Site DRAIN/INJECT, JOINT/BURSA Jun 10, 2016 [facility] VISIT ESTABLISHED PATIENT Jun 10, 2016 Office Visit, Est Pt., Level 3 Jun 10, 2016 IMMUNIZATIONS No Known Immunizations
--- OUTSIDE RECORDS SUMMARY | 2018-02-11 18:39 | XMS REPORT ---
Author Author RENU ARRIAGA [facility] Address [address] [place] [address] Care Team Providers Care Stack Attendant Name Role Phone RENU ARRIAGA Unavailable PROBLEMS Type Condition ICD9-CM Code RDL13-EN Code Onset Dates Condition Status SNOMED Code Problem History of left above knee amputation Z89.612 Active 567134190 Problem Degenerative tear of glenoid labrum of right shoulder M24.111 Active 867271116 Problem Other chronic pain G89.29 Active 12819295 Problem Arthritis of right knee M19.90 Active 539496799 Problem Phantom limb pain G54.6 Active 4419533433360 Problem Reactive depression F32.9 Active 14756898 Problem Anxiety F41.9 Active 05538396 ALLERGIES Substance Reaction Event Type Date Status Codeine Unknown Drug Allergy Aug, Active SOCIAL HISTORY Never Assessed PLAN OF CARE Activity Details Follow Up 6 Months Reason: VITAL SIGNS Height 73 in 2016-08-12 Weight 249 lbs 2016-08-12 Temperature 98.6 degrees Fahrenheit 2016-08-12 Heart Rate 80 bpm 2016-08-12 Respiratory Rate 18 2016-08-12 BMI 32.85 kg/m2 2016-08-12 Blood pressure systolic 120 mmHg 2016-08-12 Blood pressure diastolic 80 mmHg 2016-08-12 MEDICATIONS Medication Instructions Dosage Frequency Start Date End Date Duration Status Gabapentin 800 MG Orally 4 times a day 1 tablet 6h Jan, 30 days Active Trintellix 5 mg Orally Once a day 1 tablet 24h Aug, 30 day(s) Active Trintellix 5 mg orally once a day 1 tablet 24h Apr, Active RESULTS No Results PROCEDURES Procedure Date Ordered Result Body Site [facility] VISIT ESTABLISHED PATIENT August 12, 2016 IMMUNIZATIONS No Known Immunizations MEDICAL (GENERAL) HISTORY [...]
--- OUTSIDE RECORDS SUMMARY | 2018-02-11 18:39 | XMS REPORT | Continuity of Care Document ---
Author Author [facility] Organization [facility] Address Unknown Phone Unavailable Care Team Providers Care Biological Engineer Name Role Phone NO, LOCAL PHYSICIAN PP Unavailable Insurance Providers Payer Name Policy Number Subscriber Name Relationship [facility] [employer] [id number] Torie Dejesus 01 Self / Same As Patient Advance Directives Directive Response Recorded Date Advance Directives N 02/07/13 5:13pm Health Care Power of Apron Trimmer N 02/07/13 5:13pm Organ Donor Y 02/07/13 5:13pm Problems No Known Problems or Medical conditions. Family History History Response Recorded Date/Time Hx Family Cancer Y 07/23/12 7:40pm Hx Family Breast Cancer N 07/23/12 7: 40pm Hx Family Lung Cancer N 07/23/12 7:40pm Hx Family Colorectal Cancer Y GRANDFATHER 07/23/12 7:40pm Hx Family Cardiac Disorders N 07/23/12 7: 40pm Social History History Response Recorded Date/Time Alcohol Use Occasionally Uses 02/07/13 5: 13pm Recreational Drug Use N OLD HISTORY THC 02/07/13 5:13pm Recent Foreign Travel N 02/07/13 5:13pm Recent Infectious Disease Exposure N 09/16 5:13pm Hospitalization with Isolation Denies 09/16 5:13pm Allergies, Adverse Reactions, Alerts Allergen Type Severity Reaction Last Updated Penicillins Allergy Mild 10/19/08 Codeine Allergy Mild NAUSEA/VOMITING 12/05/08 aspirin Allergy Mild 10/19/08 Penicillin V Allergy Intermediate 08/17/07 Medications Medication Dose Units Route Sig Qty Days Tramadol HCl (Ultram) 50 - 100 Mg PO Q6H 30 Alprazolam (Xanax) 2 Mg PO HS Acetaminophen (Tylenol) 650 Mg PO Q4H PRN Alprazolam (Xanax) 1 Mg PO TID PRN Citalopram Hydrobromide (Celexa) 1 Each PO HS Nortriptyline Hcl 25 Mg PO HS Trimethoprim/Sulfamethoxazole (Bactrim Ds Tablet) 1 Each PO BID Polysaccharide Iron Complex (Niferex) 150 Mg PO BID Oxycodone Hcl (Roxicodone) 5 Mg PO Q4H PRN Alprazolam (Xanax) 1 - 2 Tab PO HS Nortriptyline Hcl (Pamelor) 25 Mg PO HS Oxycodone Hcl/Acetaminophen (Oxycodone Hcl-Apap 10/650 Tab) 1 Each PO Oxycodone Hcl/Acetaminophen (Oxycodone-Acetaminophn 7.5-500) 1 Each PO Enoxaparin Sodium (Lovenox) 1 Each SQ Q12HR Clarithromycin (Biaxin Xl) 2 Each PO DAILY Levofloxacin (Levaquin 750 Mg/250 Ml Ns) 750 Mg IV Immunizations Name Given Type Date of Influenza Vaccine 06/06/12 H Response Recorded Date/Time Status not known Unknown Results No Known Relevant Diagnostic Tests, Laboratory Data and/or Discharge Summary. Procedures Procedure Code Date ESOPHAGOGASTRODUODENOSCOPY [EGD] W/CLOSED BIOPSY 45.16 08/18/07 LAPAROSCOPIC CHOLECYSTECTOMY 60760 INSERT NON-TUNNEL CV CATH 88810 11/03/11 LESION REMOVE COLONOSCOPY 91763 08/02/12 UPPER GI ENDOSCOPY BIOPSY 13715 08/02/12 Encounters Encounter Location Date/Time Departed Emergency Room [facility] 09/16 5:00pm Discharged Inpatient [facility] 7:30pm
--- OUTSIDE RECORDS SUMMARY | 2018-02-11 18:39 | XMS REPORT ---
Author RENU Angelo Organization [employer] Address Unknown Phone Unavailable Care Team Providers Care Automobile Body Worker Name Role Phone RENU ARRIAGA CP Unavailable Allergies No Known Allergies Problems Problem Type Condition Code Onset Dates Condition Status Problem Counseling on substance use and abuse V65.42 Active Problem Anxiety state, unspecified 300.00 Active Problem History of left above knee amputation Z89.612 Active Problem Posttraumatic stress disorder 309.81 Active Medications Medication Code System Code Instructions Start Date End Date Status Dosage Erin [facility] [address]-27 150 MG Orally Twice a day May 12, 2015 1 tablet Results No Known Results Summary Purpose [employer]Clinical[employer] Submission
--- OUTSIDE RECORDS SUMMARY | 2018-02-11 18:39 | XMS REPORT ---
Author Author RENU ARRIAGA Organization [facility] Address [address] [place] [address] Care Team Providers Care Pharmacy Technician Inpatient Name Role Phone RENU ARRIAGA Unavailable PROBLEMS Type Condition ICD9-CM Code BBM94-DB Code Onset Dates Condition Status SNOMED Code Problem Phantom limb pain G54.6 Active 5014674071746 Problem History of left above knee amputation Z89.612 Active 718641558 Problem Acute medial meniscus tear of right knee, initial encounter S83.241A Active 490547036 Problem Degenerative tear of glenoid labrum of right shoulder M24.111 Active 948582871 Problem Anxiety F41.9 Active 33164341 Problem Arthritis of right knee M19.90 Active 112807110 Problem Other chronic pain G89.29 Active 25123955 Problem Reactive depression F32.9 Active 78131770 ALLERGIES No Information ENCOUNTERS Encounter Location Date Diagnosis [place] [id number] [place] [address] 56223- 1569 Sep, Medicare annual wellness visit, initial Z00.00 [facility] [address] [place] [address] 83536- 2165 May, Arthritis of right knee M19.90 [facility] [address] [place] [address] 67675- 5187 May, [facility] [id number] [place] [address] 40314- 3319 May, [facility] [id number] [place] [address] 38690- 3486 Apr, Acute medial meniscus tear of right knee, initial encounter S83.241A [facility] [id number] [place] [address] 24447- 9829 02 Apr, 2017 Acute medial meniscus tear of right knee, subsequent encounter S83.241D [facility] [address] [address]- 1736 Mar, [facility] [id number] [place] [address] 71050- 6746 Mar, [facility] [id number] [place] [address] 13669- 9700 Dec, [facility] [id number] [place] [address] 03336- 8895 Dec, [facility] [id number] [place] [address] 68087- 2680 Dec, Acute medial meniscus tear of right knee, subsequent encounter S83.241D [facility] [id number] [place] [address] 89647- 8864 Nov, Complex tear of lateral meniscus of right knee as current injury, initial encounter S83.271A and Impingement syndrome of right shoulder M75.41 [facility] [id number] [place] [address] 92939- 4765 October, [facility] [id number] [place] [address] 15507- 8427 Aug, Phantom limb pain G54.6 and Reactive depression F32.9 [facility] [address] [place] [address] 08203- 4172 Jun, Degenerative tear of glenoid labrum of right shoulder M24.111 [facility] [address] [address]- 3172 Apr, [facility] [id number] [place] [address] 57617- 2436 Apr, [facility] [id number] [address]- 5252 Apr, [facility] [address] [place] [address] 84611- 4641 Apr, Pain in right shoulder M25.511 ; Other chronic pain G89.29 and Reactive depression F32.9 [facility] [id number] [place] [address] 20194- 5173 Mar, Phantom limb pain G54.6 ; Reactive depression F32.9 and History of left above knee amputation Z89.612 [facility] [id number] [place] [address] 32175- 3311 Feb, Anxiety F41.9 [facility] [id number] [place] [address] 90477 2542 Jan, History of left above knee amputation Z89.612 ; Arthritis of right knee M19.90 and Phantom limb pain G54.6 [facility] [id number] [place] [address] 83610- 9592 Aug, Shoulder pain, right M25.511 [facility] [id number] [place] [address] 48907- 1637 May, [facility] [id number] [place] [address] 51863- 4693 May, [facility] [id number] [place] [address] 50683- 9796 May, [facility] [id number] [place] [address] 67170- 2744 May, [facility] [id number] [place] [address] 34932- 2542 May, History of left above knee amputation Z89.612 and Nicotine dependence F17.200 [facility] [id number] [place] [address] 51173- 1796 Sep, [facility] [id number] [place] [address] 29392- 1514 Sep, [facility] [id number] [place] [address] 34701- 9257 Aug, [facility] [id number] [place] [address]- 7286 Aug, [facility] [address] [id number] [place] [address]- 1003 Jul, [facility] [place] [facility] [address] [id number] [place] [address]- 6626 Jul, [facility] [address] [id number] [place] [address]- 9286 Feb, [facility] [place] [facility] [address] [id number] [place] [address]- 6321 Jan, [facility] [place] [address] [id number] [place] Nov, [facility] [place] [facility] [address] [id number] [place] [address]- 4436 Sep, [facility] [address] [id number] [place] [address]- 4191 Jul, [facility] [address] [id number] [place] [address]- 6280 Jul, [facility] [address] [id number] [place] [address]- 0064 May, [facility] [address] [facility] [id number] [place] [address]- 3509 May, [facility] [place] [facility] [address] [id number] [place] [address] 2546 May, [facility] [place] [facility] [address] [id number] [place] [address] 2548 May, [facility] [place] [facility] [address] [id number] [place] [address]- 0256 May, [facility] [place] [facility] [address] [facility] [id number] [place] [address]- 2546 May, [facility] [place] [facility] [address] [facility] [id number] [place] [address]- 8628 Apr, [facility] [place] [facility] [address] [id number] [place] [address]- 3712 Apr, [facility] [place] [facility] [address] [id number] [place] [address]- 1171 Apr, [facility] [place] [facility] [address] [id number] [place] [address]- 1448 Apr, [facility] [place] [facility] [address] [id number] [place] [address]- 7264 Apr, [facility] [place] [facility] [address] [id number] [place] [address]- 0205 Apr, [facility] [place] [facility] [address] [id number] [place] [address]- 3580 Apr, [facility] [place] [facility] [address] [facility] [id number] [place] [address]- 1831 Apr, [facility] [place] [facility] [id number] [address]- 3927 Mar, [facility] [place] [address] [facility] [id number] [address] Mar, [facility] [place] [facility] [address] [id number] [place] [address]- 2979 Mar, [facility] [place] [facility] [address] [facility] [id number] [address]- 1439 Mar, [facility] [place] [facility] [address] [facility] [id number] [address]- 7127 Mar, [facility] [place] [facility] [address] [facility] [id number] [place] [address]- 1526 Sep, [facility] [place] [facility] [address] [facility] [id number] [address]- 5960 Jul, [facility] [place] [facility] [address] [facility] [id number] [place] [address]- 0673 Jul, [facility] [place] [facility] [address] [address]- 9946 Jul, [facility] [address] 5460 Jun, [facility] [address] 6826 Jun, [facility] [id number] 7163 May, [facility] [address] [address]- 9380 May, [facility] [address] [place] [address] 660035- 0635 May, [facility] [address] [address]- 8826 May, [facility] [id number]- 8911 May, [facility] [address] [address]- 3947 May, [facility] [address] [address]- 3515 Apr, [facility] [address] [address]- 2631 Apr, [facility] [address] [address]- 9700 Mar, [facility] [address] [address]- 5989 Mar, [facility] [address] 9117 Feb, IMMUNIZATIONS No Known Immunizations SOCIAL HISTORY Never Assessed REASON FOR VISIT Awaiting return call PLAN OF CARE VITAL SIGNS MEDICATIONS Unknown [...]
--- OUTSIDE RECORDS SUMMARY | 2018-02-11 18:39 | XMS REPORT ---
Author Author RENU ARRIAGA Organization [facility] Address [address] [place] [address] Care Team Providers Care Wrap Turner Name Role Phone RENU ARRIAGA Unavailable PROBLEMS Type Condition ICD9-CM Code DZH89-KT Code Onset Dates Condition Status SNOMED Code Problem Phantom limb pain G54.6 Active 2655268749924 Problem History of left above knee amputation Z89.612 Active 794062943 Problem Acute medial meniscus tear of right knee, initial encounter S83.241A Active 388503785 Problem Degenerative tear of glenoid labrum of right shoulder M24.111 Active 348937967 Problem Anxiety F41.9 Active 81764055 Problem Arthritis of right knee M19.90 Active 845390325 Problem Other chronic pain G89.29 Active 34138474 Problem Reactive depression F32.9 Active 93180844 ALLERGIES No Information ENCOUNTERS Encounter Location Date Diagnosis [place] [address] [place] [address] 69308- 6831 Sep, Medicare annual wellness visit, initial Z00.00 ; History of left above knee amputation Z89.612 ; Phantom limb pain G54.6 ; Reactive depression F32.9 and BMI 32.0-32.9,adult Z68.32 [facility] [address] [place] [address] 16970- 4026 May, Arthritis of right knee M19.90 [facility] [address] [address]- 7475 May, [facility] [id number] [place] [address] 96794- 4918 May, [facility] [address] [place] [address] 71417- 1194 Apr, Acute medial meniscus tear of right knee, initial encounter S83.241A [facility] [address] [address]- 2236 Apr, Acute medial meniscus tear of right knee, subsequent encounter S83.241D [facility] [address] [address]- 0738 Mar, [facility] [id number] [place] [address] 15871- 3295 Mar, [facility] [id number] [place] [address] 85459- 3051 Dec, [facility] [id number] [place] [address] 96647- 5194 Dec, [facility] [id number] [place] [address] 44436- 5876 Dec, Acute medial meniscus tear of right knee, subsequent encounter S83.241D [facility] [id number] [place] [address] 58516- 4518 Nov, Complex tear of lateral meniscus of right knee as current injury, initial encounter S83.271A and Impingement syndrome of right shoulder M75.41 [facility] [id number] [place] [address] 44599- 2354 October, [facility] [id number] [place] [address] 10388- 8492 Aug, Phantom limb pain G54.6 and Reactive depression F32.9 [facility] [id number] [place] [address] 41538- 3506 Jun, Degenerative tear of glenoid labrum of right shoulder M24.111 [facility] [id number] [place] [address] 58688- 2941 Apr, [facility] [id number] [place] [address] 04509- 0926 Apr, [facility] [id number] [place] [address] 58826- 3310 Apr, [facility] [address] [place] [address] 03014- 2698 Apr, Pain in right shoulder M25.511 ; Other chronic pain G89.29 and Reactive depression F32.9 [facility] [id number] [place] [address] 05790- 6183 Mar, Phantom limb pain G54.6 ; Reactive depression F32.9 and History of left above knee amputation Z89.612 [facility] [id number] [place] [address] 94674- 2851 Feb, Anxiety F41.9 [facility] [id number] [place] [address] 71855- 8960 Jan, History of left above knee amputation Z89.612 ; Arthritis of right knee M19.90 and Phantom limb pain G54.6 [facility] [id number] [place] [address] 13675- 6160 Aug, Shoulder pain, right M25.511 [facility] [id number] [place] [address] 90136- 5043 May, [facility] [id number] [place] [address] 67312- 4116 May, [facility] [id number] [place] [address] 94352- 7756 May, [facility] [id number] [place] [address] 84210 2541 May, [facility] [address] [place] [address] 50689- 7076 May, History of left above knee amputation Z89.612 and Nicotine dependence F17.200 [facility] [address] [place] [address] 73976- 2546 14 Sep, 2014 [facility] [id number] [place] [address] 20602- 9955 Sep, [facility] [address] [id number] [place] [address]- 7997 Aug, [facility] [place] [facility] [address] [id number] [place] [address]- 0842 Aug, [facility] [place] [facility] [address] [id number] [place] [address]- 4438 Jul, [facility] [place] [facility] [address] [id number] [place] [address]- 2491 Jul, [facility] [place] [facility] [address] [id number] [place] [address]- 4459 Feb, [facility] [place] [facility] [address] [id number] [place] [address]- 3841 Jan, [facility] [place] [facility] [address] [id number] [place] [address]- 1444 Nov, [facility] [place] [facility] [address] [id number] [place] [address]- 1574 Sep, [facility] [place] [facility] [address] [id number] [place] [address]- 8409 Jul, [facility] [place] [facility] [address] [id number] [place] [address]- 9284 Jul, [facility] [place] [facility] [address] [id number] [place] [address]- 0208 May, [facility] [place] [facility] [address] [id number], [place] [address]- 2888 May, [facility] [place] [facility] [address] [id number] [place] [address]- 2193 May, [facility] [place] [facility] [address] [id number] [place] [address]- 0503 May, [facility] [place] [facility] [address] [id number] [place] 1557 May, [facility] [place] [facility] [address] [id number], [place] [address]- 9126 May, [facility] [place] [facility] [address] [id number] [place] [address]- 4371 Apr, [facility] [place] [facility] [address] [id number] [address]- 1377 Apr, [facility] [place] [facility] [address] [id number] [place] [address]- 9089 Apr, [facility] [place] [facility] [address] [id number], [place] [address]- 6158 Apr, [facility] [place] [facility] [address] [id number] [place] [address]- 5777 Apr, [facility] [place] [facility] [address] [id number] [address]- 0819 Apr, [facility] [place] [facility] [address] [address]- 4300 Apr, [facility] [place] [facility] [address] [address]- 8093 Apr, [facility] [place] [facility] [address] [address]- 0984 Mar, [facility] [address] [id number] [id number] Mar, [facility] [place] [facility] [address] [address]- 0612 Mar, [facility] [place] [facility] [address] [id number] [address]- 8903 Mar, [facility] [place] [facility] [address] [id number] [address]- 4033 Mar, [facility] [place] [facility] [address] [id number] [address]- 5919 Sep, [facility] [place] [facility] [address] [id number] [address]- 2994 Jul, [facility] [place] [facility] [address] [facility] [id number], [place] [address]- 3066 Jul, [facility] [address] [facility] [id number]- 8952 Jul, [facility] [address] [facility] [id number], [place] [address]- 8636 Jun, [facility] [address] [facility] [id number], [place] [address]- 1790 Jun, [facility] [address] [facility] [id number], [place] [address]- 6972 May, [facility] [address] [facility] [id number] [place] [address]- 9465 May, [facility] [address] [id number] [address]- 1374 May, [facility] [address] [address]- 5281 May, [facility] [address] [address]- 7072 May, [facility] [address] [address]- 6598 May, [facility] [address] [address]- 7105 Apr, [facility] [address] [facility] [id number], [place] [address]- 7988 Apr, [facility] [address] [facility] [id number], [place] [address]- 9158 Mar, [facility] [address] [facility] [id number], [place] [address]- 1020 Mar, [facility] [address] [id number] 6028 Feb, IMMUNIZATIONS No Known Immunizations SOCIAL HISTORY [...]
--- OUTSIDE RECORDS SUMMARY | 2018-02-11 18:39 | XMS REPORT ---
Author RENU Angelo Organization [employer] Address Unknown Phone Unavailable Care Team Providers Care Wire Bound Box Machine Helper Name Role Phone RENU ARRIAGA CP Unavailable Allergies No Known Allergies Problems Problem Type Condition Code Onset Dates Condition Status Problem Counseling on substance use and abuse V65.42 Active Problem Anxiety state, unspecified 300.00 Active Problem History of left above knee amputation Z89.612 Active Problem Posttraumatic stress disorder 309.81 Active Medications No Known Medications Results No Known Results Summary Purpose [employer] Submission
--- OUTSIDE RECORDS SUMMARY | 2018-02-11 18:39 | XMS REPORT ---
Author RENU Angelo Organization [employer] Address Unknown Phone Unavailable Care Team Providers Care Cloth Grader Supervisor Name Role Phone RENU ARRIAGA CP Unavailable [...]
--- OUTSIDE RECORDS SUMMARY | 2018-02-11 18:39 | XMS REPORT ---
Author RENU Angelo Organization [employer] Address Unknown Phone Unavailable Care Team Providers Care Gate Person Name Role Phone RENU ARRIAGA CP Unavailable [...]
--- OUTSIDE RECORDS SUMMARY | 2018-02-11 18:39 | XMS REPORT ---
Author RENU Angelo Organization [employer] Address Unknown Phone Unavailable Care Team Providers Care Candy Maker Helper Name Role Phone RENU ARRIAGA CP [...]
--- OUTSIDE RECORDS SUMMARY | 2018-02-11 18:40 | XMS REPORT | Continuity of Care Document ---
Author Author [facility] Address Unknown Phone Unavailable Allergies Active Description Code Type Severity Reaction Onset Reported/Identified Relationship to Patient Clinical Status Yes penicillin V [id number] Drug Allergy Moderate N/A 08/17/2007 Yes aspirin [id number] Drug Allergy Mild N/A 10/19/2008 Yes Penicillins [id number] Drug Allergy Mild N/A 10/19/2008 Yes codeine [id number] Drug Allergy Mild NAUSEA/VOMITING 12/05/2008 Yes aspirin Drug Allergy N/A N/A 02/16/2010 Yes Penicillins Drug Allergy N/A N/A 02/16/2010 Yes aspirin Drug Allergy 02/16/2010 Yes Penicillins Drug Allergy 02/16/2010 Yes Codeine Drug Allergy N/A N/A 06/05/2012 Yes Codeine Drug Allergy 06/05/2012 Medications There is no data. Problems Date Dx Coded Attending Type Code Diagnosis Diagnosed By 02/16/2010 686.9 UNSPECIFIED LOCAL INFECTION OF SKIN AND SUBCUTANEOUS TISSUE 02/16/2010 686.9 UNSPECIFIED LOCAL INFECTION OF SKIN AND SUBCUTANEOUS TISSUE 02/16/2010 686.9 Unspecified Local Infection Of Skin And Subcutaneous Tissue 02/16/2010 686.9 Unspecified Local Infection Of Skin And Subcutaneous Tissue 02/16/2010 686.9 Unspecified Local Infection Of Skin And Subcutaneous Tissue 02/16/2010 RENU ARRIAGA MD 686.9 Unspecified Local Infection Of Skin And Subcutaneous Tissue 02/16/2010 RENU ARRIAGA MD 686.9 UNSPECIFIED LOCAL INFECTION OF SKIN AND SUBCUTANEOUS TISSUE 11/12/2010 314.00 ATTENTION DEFICIT DISORDER OF CHILDHOOD WITHOUT HYPERACTIVITY 11/12/2010 V13.3 PERSONAL HISTORY OF DISEASES OF SKIN AND SUBCUTANEOUS TISSUE 11/12/2010 314.00 ATTENTION DEFICIT DISORDER OF CHILDHOOD WITHOUT HYPERACTIVITY 11/12/2010 V13.3 PERSONAL HISTORY OF DISEASES OF SKIN AND SUBCUTANEOUS TISSUE 11/12/2010 314.00 ATTENTION DEFICIT DISORDER OF CHILDHOOD WITHOUT HYPERACTIVITY 11/12/2010 V13.3 PERSONAL HISTORY OF DISEASES OF SKIN AND SUBCUTANEOUS TISSUE 11/12/2010 314.00 ATTENTION DEFICIT DISORDER OF CHILDHOOD WITHOUT HYPERACTIVITY 11/12/2010 V13.3 PERSONAL HISTORY OF DISEASES OF SKIN AND SUBCUTANEOUS TISSUE 11/12/2010 314.00 ATTENTION DEFICIT DISORDER OF CHILDHOOD WITHOUT HYPERACTIVITY 11/12/2010 V13.3 PERSONAL HISTORY OF DISEASES OF SKIN AND SUBCUTANEOUS TISSUE 11/12/2010 RENU ARRIAGA MD 314.00 ATTENTION DEFICIT DISORDER OF CHILDHOOD WITHOUT HYPERACTIVITY 11/12/2010 RENU ARRIAGA MD V13.3 PERSONAL HISTORY OF DISEASES OF SKIN AND SUBCUTANEOUS TISSUE 11/12/2010 RENU ARRIAGA MD 314.00 ATTENTION DEFICIT DISORDER OF CHILDHOOD WITHOUT HYPERACTIVITY 11/12/2010 RENU ARRIAGA MD V13.3 PERSONAL HISTORY OF DISEASES OF SKIN AND SUBCUTANEOUS TISSUE 02/23/2011 578.1 BLOOD IN STOOL 02/23/2011 724.1 PAIN IN THORACIC SPINE 02/23/2011 578.1 BLOOD IN STOOL 02/23/2011 724.1 PAIN IN THORACIC SPINE 02/23/2011 578.1 Blood In Stool 02/23/2011 724.1 PAIN IN THORACIC SPINE 02/23/2011 578.1 Blood In Stool 02/23/2011 724.1 PAIN IN THORACIC SPINE 02/23/2011 578.1 Blood In Stool 02/23/2011 724.1 PAIN IN THORACIC SPINE 02/23/2011 RENU ARRIAGA MD 578.1 Blood In Stool 02/23/2011 RENU ARRIAGA MD 724.1 PAIN IN THORACIC SPINE 02/23/2011 RENU ARRIAGA MD 578.1 BLOOD IN STOOL 02/23/2011 RENU ARRIAGA MD 724.1 PAIN IN THORACIC SPINE 06/04/2011 466.0 ACUTE BRONCHITIS 06/04/2011 466.0 ACUTE BRONCHITIS 06/04/2011 466.0 Acute Bronchitis 06/04/2011 466.0 Acute Bronchitis 06/04/2011 466.0 Acute Bronchitis 06/04/2011 RENU ARRIAGA MD 466.0 Acute Bronchitis 06/04/2011 RENU ARRIAGA MD 466.0 ACUTE BRONCHITIS 09/06/2011 V65.42 COUNSELING - SMOKING CESSATION 09/06/2011 V65.42 COUNSELING - SMOKING CESSATION 09/06/2011 V65.42 COUNSELING - SMOKING CESSATION 09/06/2011 V65.42 COUNSELING - SMOKING CESSATION 09/06/2011 V65.42 COUNSELING - SMOKING CESSATION 09/06/2011 RENU ARRIAGA MD V65.42 COUNSELING - SMOKING CESSATION 09/06/2011 RENU ARRIAGA MD V65.42 COUNSELING - SMOKING CESSATION 11/03/2011 Ot 823.02 FX UP TIBIA W FIBULA-CL 11/03/2011 Ot 823.12 FX UP TIBIA W FIBULA-OPN 11/03/2011 Ot 919.0 ABRASION NEC 11/03/2011 Ot 959.7 LOWER LEG INJURY NOS 11/03/2011 Ot E000.8 OTHER EXTERNAL CAUSE STATUS 11/03/2011 Ot 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 11/03/2011 Ot V06.1 DIPHTHERIA- TETANUS-PERTUSSIS, COMBINED [ 01/16/2012 Ot V58.81 FIT/ADJ VASCULAR CATHETER 01/17/2012 Ot 730.00 AC OSTEOMYELITIS-UNSPEC 03/27/2012 309.81 DELAYED POST- TRAUMATIC STRESS DISORDER 03/27/2012 309.81 DELAYED POST- TRAUMATIC STRESS DISORDER 03/27/2012 309.81 DELAYED POST- TRAUMATIC STRESS DISORDER 03/27/2012 309.81 DELAYED POST- TRAUMATIC STRESS DISORDER 03/27/2012 309.81 DELAYED POST- TRAUMATIC STRESS DISORDER 03/27/2012 RENU ARRIAGA MD 309.81 DELAYED POST-TRAUMATIC STRESS DISORDER 03/27/2012 RENU ARRIAGA MD 309.81 DELAYED POST-TRAUMATIC STRESS DISORDER 06/28/2012 Ot V54.16 AFTERCARE HEALING TRAUMATIC FX LOWER LEG 06/28/2012 Ot V58.81 FIT/ADJ VASCULAR CATHETER 07/13/2012 Ot 276.8 HYPOPOTASSEMIA 07/13/2012 Ot 280.9 IRON DEFIC ANEMIA NOS 07/13/2012 Ot 296.80 BIPOLAR DISORDER, UNSPECIFIED 07/13/2012 Ot 300.00 ANXIETY STATE NOS 07/13/2012 Ot 304.91 DRUG DEPEND NOS-CONTIN 07/13/2012 Ot 305.1 TOBACCO USE DISORDER 07/13/2012 Ot 486 PNEUMONIA, ORGANISM NOS 07/13/2012 Ot 785.6 ENLARGEMENT LYMPH NODES 07/13/2012 Ot V49.76 ABOVE KNEE AMPUTATION STATUS 07/25/2012 Ot 276.51 DEHYDRATION 07/25/2012 Ot 276.8 HYPOPOTASSEMIA 07/25/2012 Ot 280.9 IRON DEFIC ANEMIA NOS 07/25/2012 Ot 296.80 BIPOLAR DISORDER, UNSPECIFIED 07/25/2012 Ot 305.1 TOBACCO USE DISORDER 07/25/2012 Ot 305.20 CANNABIS ABUSE-UNSPEC 07/25/2012 Ot 785.6 ENLARGEMENT LYMPH NODES 07/25/2012 Ot 787.91 DIARRHEA 07/25/2012 Ot V49.76 ABOVE KNEE AMPUTATION STATUS 07/25/2012 Ot V58.69 OTH MED,LT, CURRENT USE 07/28/2012 300.00 ANXIETY STATE UNSPECIFIED 07/28/2012 300.00 ANXIETY STATE UNSPECIFIED 07/28/2012 RENU ARRIAGA MD 300.00 ANXIETY STATE UNSPECIFIED 08/02/2012 Ot 211.3 BENIGN NEOPLASM LG BOWEL 08/02/2012 Ot 280.9 IRON DEFIC ANEMIA NOS 08/02/2012 Ot 535.50 UNSP GASTRITIS GASTRODUODENITIS W/O ME 08/02/2012 Ot 792.1 ABN FIND- STOOL CONTENTS 08/02/2012 Ot V16.0 FAMILY HX-GI MALIGNANCY 02/07/2013 BRITNEY GREGORIO, CHAR Shaw Ot 729.5 PAIN IN LIMB 02/07/2013 BRITNEY GREGORIO, CHAR Shaw Ot 782.3 EDEMA 02/07/2013 BRITNEY GREGORIO, CHAR Shaw Ot 786.09 RESPIRATORY ABNORM NEC 02/13/2013 RENU ARRIAGA MD Ot V49.76 ABOVE KNEE AMPUTATION STATUS 02/13/2013 RENU ARRIAGA MD Ot V57.1 PHYSICAL THERAPY NEC 04/17/2013 RENU ARRIAGA MD Ot V49.76 ABOVE KNEE AMPUTATION STATUS 04/17/2013 RENU ARRIAGA MD Ot V57.1 PHYSICAL THERAPY NEC 09/06/2013 DEBI CHOI MD ([facility]) Ot 309.81 POSTTRAUMATIC STRESS DISORDER 09/06/2013 DEBI CHOI MD ([facility]) Ot V43.7 LIMB REPLACEMENT NEC 09/06/2013 DEBI CHOI MD ([facility]) Ot V46.3 WHEELCHAIR DEPENDENCE 09/06/2013 DEBI CHOI MD ([facility]) Ot V49.70 UNSPECIFIED LEVEL LOWER LIMB AMPUTATION 09/06/2013 DEBI CHOI MD ([facility]) Ot V57.1 PHYSICAL THERAPY NEC 12/15/2016 Ot V54.16 AFTERCARE HEALING TRAUMATIC FX LOWER LEG 12/15/2016 Ot V58.81 FIT/ADJ VASCULAR CATHETER 12/15/2016 Ot V72.84 EXAM PRE- OPERATIVE NOS 01/05/2017 YI TELLY MONTANO Ot R93.8 ABNORMAL FINDINGS ON DIAGNOSTIC IMAGING 01/05/2017 TELLY YI Ot S83.271A COMPLEX TEAR OF LAT MENSC, CURRENT INJUR 01/05/2017 KD TELLY MONTANO Ot X58.XXXA EXPOSURE TO OTHER SPECIFIED FACTORS, INI 01/05/2017 YITELLY Gomez Ot Y99.8 OTHER EXTERNAL CAUSE STATUS 01/18/2017 YI TELLY MONTANO Ot R93.8 ABNORMAL FINDINGS ON DIAGNOSTIC IMAGING 01/18/2017 YITELLY Gomez Ot S83.271A COMPLEX TEAR OF LAT MENSC, CURRENT INJUR 01/18/2017 TELLY YI Ot X58.XXXA EXPOSURE TO OTHER SPECIFIED FACTORS, INI 01/18/2017 YISARAHSTEVE MONTANO Ot Y99.8 OTHER EXTERNAL CAUSE STATUS Procedures Code [place] [address] URINE DRUG SCREEN (IN-HOUSE ) 11/07/2012 Physical Physical Therapy, Via [facility] 11/09/2012 Results There is no data. Encounters ACCT No. Visit Date/Time Discharge Status Pt. Type Provider Facility Loc./Unit Complaint [id number] 11/07/2012 16:45:00 11/07/2012 23:59:59 CLS Outpatient RENU ARRIAGA MD [id number] 07/28/2012 11:13:00 07/28/2012 23:59:59 CLS Outpatient [id number] 06/05/2012 11:27:00 06/05/2012 23:59:59 CLS Outpatient [id number] 05/10/2012 00:00:00 05/10/2012 23:59:59 CLS Outpatient [id number] 04/06/2012 11:01:00 04/06/2012 23:59:59 CLS Outpatient [id number] 04/06/2012 11:01:00 04/06/2012 23:59:59 CLS Outpatient RENU ARRIAGA MD [id number] 09/04/2012 07:57:00 Document Registration [id number] 12/15/2016 09:04:00 12/15/2016 23:59:59 CLS Outpatient TELLY YI [facility] RAD S83.271A [id number] 09/06/2013 08:31:00 09/06/2013 17:00:00 DIS Outpatient JIMBO GREGORIO, DEBI Vasquez (DDU) [facility] REHAB L LEG AMPUTATION [id number] 04/10/2013 10:00:00 04/17/2013 15:26:00 DIS Outpatient RENU ARRIAGA MD [facility] REHAB L LEG AMPUTATION [id number] 02/06/2013 10:57:00 02/13/2013 00:01:00 DIS Outpatient RENU ARRIAGA MD [facility] REHAB L LEG AMPUTATION [id number] 02/07/2013 17:00:00 02/07/2013 20:42:00 DIS Emergency BRITNEY GREGORIO, CHAR Shaw [facility] ER R LEG PAIN, COUGH [id number] 12/15/2016 09:05:00 Document Registration [id number] 08/02/2012 12:02:00 Document Registration [id number] 07/26/2012 07:19:00 Document Registration [id number] 07/23/2012 19:30:00 Document Registration [id number] 07/06/2012 21:14:00 Document Registration [id number] 06/29/2012 00:00:00 Document Registration [id number] 03/30/2012 14:07:00 Document Registration [id number] 01/16/2012 11:11:00 Document Registration [id number] 01/05/2012 09:24:00 Document Registration [id number] 11/03/2011 05:29:00 Document Registration [id number] 12/30/2017 13:40:00 12/30/2017 23:59:59 CLS Outpatient RENU ARRIAGA MD [facility]
--- OUTSIDE RECORDS SUMMARY | 2018-02-11 18:40 | XMS REPORT | Continuity of Care Document ---
Author Author [facility] Organization [facility] Address Unknown Phone Unavailable Care Team Providers Care Exhibit Artist Name Role Phone NO, LOCAL PHYSICIAN PP Unavailable Insurance Providers Payer Name Policy Number Subscriber Name Relationship [facility] [employer] [id number] Torie Dejesus 01 Self / Same As Patient Advance Directives Directive Response Recorded Date Advance Directives N 02/07/13 5:13pm Health Care Power of Form Setter [employer] Forms N 02/07/13 5:13pm Organ Donor Y 02/07/13 [...] [EGD] W/CLOSED BIOPSY 45.16 08/18/07 LAPAROSCOPIC CHOLECYSTECTOMY 65941 INSERT NON-TUNNEL CV CATH [id number] 11/03/11 LESION REMOVE COLONOSCOPY [id number] 08/02/12 UPPER GI ENDOSCOPY BIOPSY [id number] 08/02/12 Encounters Encounter Location Date/Time Departed Emergency Room [facility] 09/16 5:00pm Discharged Inpatient [facility] 7:30pm
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
[2018-02-11 19:00] LABS: HEMATOCRIT 39 % (40-54); HEMOGLOBIN 13.4 G/DL (13.3-17.7); MEAN CORPUSCULAR HEMOGLOBIN 31 PG (25-34); MEAN CORPUSCULAR HGB CONC 34 G/DL (32-36); MEAN CORPUSCULAR VOLUME 90 FL (80-99); MEAN PLATELET VOLUME 11.6 FL (7.4-10.4); PLATELET COUNT 187 10^3/uL (130-400); RED BLOOD COUNT 4.38 10^6/uL (4.35-5.85); RED CELL DISTRIBUTION WIDTH 14.3 % (10.0-14.5)
[2018-02-11 19:07] LABS: WHITE BLOOD COUNT 69.1 10^3/uL (4.3-11.0)
[2018-02-11 19:18] LABS: ALANINE AMINOTRANSFERASE 29 U/L (0-55); ALBUMIN 2.7 GM/DL (3.2-4.5); ALKALINE PHOSPHATASE 64 U/L (40-136); BILIRUBIN,TOTAL 0.4 MG/DL (0.1-1.0); BUN/CREATININE RATIO 21; CALCIUM 8.3 MG/DL (8.5-10.1); CARBON DIOXIDE 30 MMOL/L (21-32); CHLORIDE 91 MMOL/L (98-107); CREATININE SERUM 0.73 MG/DL (0.60-1.30); GFR ESTIMATED > 60; GLUCOSE 106 MG/DL (70-105); POTASSIUM 3.5 MMOL/L (3.6-5.0); SODIUM 133 MMOL/L (135-145); TOTAL PROTEIN 6.3 GM/DL (6.4-8.2)
[2018-02-11 19:22] LABS: BAND NEUTROPHILS 8 %; NEUTROPHILS % (MANUAL) 59 %
[2018-02-11 19:23] LABS: BASOPHILS % (MANUAL) 0 %; EOSINOPHILS % (MANUAL) 14 %; LYMPHOCYTES % (MANUAL) 9 %; METAMYELOCYTES % 4 %; MONOCYTES % (MANUAL) 4 %; MYELOCYTES % 2 %; TOXIC GRANULATION/VACUOLAZATIO 1+
[2018-02-11 19:39] LABS: INR 1.3 (0.8-1.4); PROTHROMBIN TIME PATIENT 16.4 SEC (12.2-14.7)
[2018-02-11] MEDS ORDERED: NS IV 1000 ML 1,000 ML ONE (19:42)
--- NOTE | 2018-02-11 19:43 | Diagnostic Imaging Report ---
EXAMINATION: Chest radiograph, portable AP view. DATE: February 11, 2018 at 1857 hours. INDICATION: 37-year-old male, coughing and congestion. COMPARISON: February 07, 2013. FINDINGS: There is sideplate and screw fixation hardware along the medial aspect of the right clavicle. There are technical limitations of the exam relating to patient body habitus and difficulties with exposure. Stable cardiomegaly and overall appearance of the cardiomediastinal silhouette. There is no identified pneumothorax. There is nonspecific right basilar airspace consolidation. There is blunting of the right lateral costophrenic angle. There is likely fluid in the right minor fissure. There are subtle streaky opacities in the left mid and lower lung zones. IMPRESSION: 1. Nonspecific right greater than left bibasilar airspace consolidation with probable right-sided pleural effusion. 2. Unchanged cardiomegaly. Dictated by: Dictated on workstation # [id number]
[2018-02-11] MEDS ORDERED: ACETAMINOPHEN 500 MG TAB (TYLENOL) PO ONE (19:45)
[2018-02-11] MEDS ORDERED: NS IV 1000 ML 1,000 ML IV SCH (19:45)
[2018-02-11] MEDS ORDERED: IOHEXOL 350 MG/ML 100 ML (OMNIPAQUE 350) VIAL IV ONE (20:00)
[2018-02-11] MEDS ORDERED: fentaNYL INJECTION 100 MCG/2 ML AMP IVP ONE (20:30)
[2018-02-11 20:45] LABS: BILIRUBIN,URINE NEGATIVE (NEGATIVE); CLARITY,URINE SLIGHTLY CLOUDY; COLOR,URINE AMBER; GLUCOSE, URINE (UA) NEGATIVE (NEGATIVE); KETONES,URINE 1+ (NEGATIVE); LEUKOCYTE ESTERASE ,URINE 1+ (NEGATIVE); NITRITE,URINE NEGATIVE (NEGATIVE); PH,URINE 5 (5-9); PROTEIN,URINE 2+ (NEGATIVE); UROBILINOGEN,URINE 8 MG/DL (NORMAL)
--- NOTE | 2018-02-11 20:51 | Diagnostic Imaging Report ---
PROCEDURE: CT chest with contrast only. TECHNIQUE: Multiple contiguous axial images were obtained through the chest after administration of intravenous contrast. DATE: February 11, 2018. COMPARISON: Chest radiograph February 11, 2018. INDICATION: 37-year-old male, chest pain and cough. Congestion. FINDINGS: There is nonspecific right lower lobe airspace consolidation on axial image 23 and adjacent sequential images. There is a small to moderate right pleural effusion. The left lung is clear. There is no left pleural effusion. The main pulmonary artery diameter is beyond upper limits of normal and measures 3.3 cm. This suggests pulmonary artery hypertension. There is nondiagnostic assessment for pulmonary embolus given the timing of the contrast bolus. The areas of right lower lobe airspace consolidation are along the bronchovascular distribution and do appear somewhat wedge-shaped. The heart is not enlarged. There is prominence of mediastinal fat which has likely accentuated heart size on radiographs. There is a right paratracheal lymph node on axial image 9 which measures 11 mm in short axis. There are additional mildly prominent right paratracheal lymph nodes. There is a subcarinal lymph node on axial image 19 which measures 11 mm in size. There are mildly prominent AP window lymph nodes including example on axial image 13 which measures 9 mm in short axis. There are fat-containing bilateral axillary lymph nodes which are not grossly enlarged. There is stranding of the mediastinal fat which is abnormal and nonspecific. There is no obvious pleural thickening or pleural-based mass. The patient is status post cholecystectomy. Additional limited evaluation of the visualized portions of the upper abdomen is unremarkable. There is no identified acute bony abnormality. IMPRESSION: CT chest: 1. Small to moderate right pleural effusion of uncertain exact causative etiology. Consider pleural fluid analysis. 2. Nonspecific right lower lobe airspace consolidation which does appear to be along the bronchovascular distribution and somewhat wedge-shaped. 3. Nondiagnostic assessment for pulmonary embolus. Enlarged main pulmonary artery diameter suggesting pulmonary artery hypertension. 4. Prominent right paratracheal, AP window and subcarinal lymph nodes which potentially could relate to the process associated with the right pleural effusion and right lower lobe airspace consolidation. This does increase concern for possibility of infection or neoplasm. 5. Nonspecific stranding of the mediastinal fat which is abnormal. 6. No cardiomegaly. No pericardial effusion. This does appear fairly similar to July 06, 2012. Dictated by: Dictated on workstation # [id number]
[2018-02-11 20:56] LABS: BACTERIA,URINE TRACE /HPF
[2018-02-11] MEDS ORDERED: cefTRIAXone FOR IV USE 1,000 MG in NS (IVPB) 50 ML IV ONE (21:30)
--- OUTSIDE RECORDS SUMMARY | 2018-02-11 22:36 | XMS REPORT | Clinical Summary ---
Author Author [facility] Organization [facility] Address Unknown Phone Unavailable Care Team Providers Care Repair Weaver Name Role Phone Hannah Ragland MD Unavailable Cash Cunha MD Unavailable Susanna Oconnell RN Unavailable Unavailable Albaro Mathew MD Unavailable Jessi Vera RN Unavailable Unavailable Debbie Dior DO Unavailable Zane Dela Cruz MD PCP Deb Laird APRN Unavailable Source Comments Some departments are not documenting in the electronic medical record. If you do not see the information that you expected, contact Release of Information in the Health Information Management department at [phone] for further assistance in locating additional records.[facility] Allergies Active Allergy Reactions Severity Noted [...] & Plan: Sutures removed. Begin working with biztalk developer. F/u in 2-3 months or PRN. 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
--- OUTSIDE RECORDS SUMMARY | 2018-02-11 22:39 | XMS REPORT | Continuity of Care Document ---
Author Author [facility] Address Unknown Phone Unavailable Allergies Active Description Code Type Severity Reaction Onset Reported/Identified Relationship to Patient Clinical Status Yes penicillin V [id number] Drug Allergy Moderate N/A 08/17/2007 Yes aspirin [id number] Drug Allergy Mild N/A 10/19/2008 Yes Penicillins [id number] Drug Allergy Mild N/A 10/19/2008 Yes codeine [id number] Drug Allergy Mild NAUSEA/VOMITING 12/05/2008 Yes aspirin [...] PHYSICAL THERAPY NEC 09/06/2013 DEBI CHOI MD ([facility]) Ot 309.81 POSTTRAUMATIC STRESS DISORDER 09/06/2013 DEBI CHOI MD ([facility]) Ot V43.7 LIMB REPLACEMENT NEC 09/06/2013 DEBI CHOI MD ([facility]) Ot V46.3 WHEELCHAIR DEPENDENCE 09/06/2013 DEBI CHOI MD ([facility]) Ot V49.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 Encounters ACCT No. Visit Date/Time Discharge Status Pt. Type Provider Facility Loc./Unit Complaint [id number] 11/07/2012 16:45:00 11/07/2012 23:59:59 CLS Outpatient RENU ARRIAGA MD [id number] 07/28/2012 11:13:00 07/28/2012 23:59:59 CLS Outpatient [id number] 06/05/2012 11:27:00 06/05/2012 23:59:59 CLS Outpatient [id number] 05/10/2012 00:00:00 05/10/2012 23:59:59 CLS Outpatient [id number] 04/06/2012 11:01:00 04/06/2012 23:59:59 CLS Outpatient [id number] 04/06/2012 11:01:00 04/06/2012 23:59:59 CLS Outpatient RENU ARRIAGA MD [id number] 09/04/2012 07:57:00 Document Registration [id number] 12/15/2016 09:04:00 12/15/2016 23:59:59 CLS Outpatient TELLY YI [facility] RAD [id number] 09/06/2013 08:31:00 09/06/2013 17:00:00 DIS Outpatient JIMBO GREGORIO, DEBI Vasquez (DDU) [facility] REHAB L LEG AMPUTATION [id number] 04/10/2013 10:00:00 04/17/2013 15:26:00 DIS Outpatient RENU ARRIAGA MD [facility] REHAB L LEG AMPUTATION [id number] 02/06/2013 10:57:00 02/13/2013 00:01:00 DIS Outpatient RENU ARRIAGA MD [facility] REHAB L LEG AMPUTATION [id number] 02/07/2013 17:00:00 02/07/2013 20:42:00 DIS Emergency BRITNEY GREGORIO, CHAR Shaw [facility] ER R LEG PAIN, COUGH [id number] 12/15/2016 09:05:00 Document Registration [id number] 08/02/2012 12:02:00 Document Registration [id number] 07/26/2012 07:19:00 Document Registration [id number] 07/23/2012 19:30:00 Document Registration [id number] 07/06/2012 21:14:00 Document Registration [id number] 06/29/2012 00:00:00 Document Registration [id number] 03/30/2012 14:07:00 Document Registration [id number] 01/16/2012 11:11:00 Document Registration [id number] 01/05/2012 09:24:00 Document Registration [id number] 11/03/2011 05:29:00 Document Registration [id number] 12/30/2017 13:40:00 12/30/2017 23:59:59 CLS Outpatient RENU ARRIAGA MD [facility]
[2018-02-11 23:08] VITALS: BP 115/72
[2018-02-11 23:15] VITALS: BP 115/64
[2018-02-11 23:30] VITALS: BP 130/70
[2018-02-11] MEDS ORDERED: LEVOFLOXACIN 750 MG/150 ML IV 150 ML IV SCH (23:30)
[2018-02-11] MEDS: NS IV 1000 ML 1,000 ML IV SCH (23:37)
[2018-02-11] MEDS: fentaNYL INJECTION 100 MCG/2 ML AMP IV PRN (23:37)
[2018-02-11 23:45] VITALS: BP 130/70
[2018-02-11] MEDS ORDERED: PANTOPRAZOLE 40 MG (PROTONIX) TAB PO ONE (23:48)
[2018-02-11] MEDS ORDERED: CALCIUM CARBONATE 500 MG (TUMS) TAB.CHEW ONE (23:48)
[2018-02-11] MEDS ORDERED: ONDANSETRON 4 MG/2 ML (SDV) Z0FRAN ONE (23:48)
[2018-02-12] VITALS (21 sets, daily range): BP systolic 103–146; BP diastolic 58–81
[2018-02-12] MEDS: ONDANSETRON 4 MG/2 ML (SDV) Z0FRAN IV PRN ×2 (00:16→03:18)
[2018-02-12] MEDS: CALCIUM CARBONATE 500 MG (TUMS) TAB.CHEW PO PRN ×2 (00:16→02:06)
[2018-02-12] MEDS: PANTOPRAZOLE 40 MG (PROTONIX) TAB PO SCH ×3 (00:16→21:50)
[2018-02-12] MEDS: fentaNYL INJECTION 100 MCG/2 ML AMP IV PRN ×4 (00:36→05:15)
[2018-02-12] MEDS ORDERED: RT-ALBUTEROL/IPRATROPIUM 3 ML (DUONEB) VIAL INH PRN (01:15)
[2018-02-12] MEDS: ACETAMINOPHEN 500 MG TAB (TYLENOL) PO PRN (02:06)
[2018-02-12 03:19] LABS: BASOPHILS # (AUTO) 0.5 10^3/uL (0.0-0.1); BASOPHILS % (AUTO) 1 % (0-10); HEMATOCRIT 35 % (40-54); HEMOGLOBIN 11.7 G/DL (13.3-17.7); LYMPHOCYTES # (AUTO) 3.9 X 10^3 (1.0-4.0); LYMPHOCYTES % (AUTO) 5 % (12-44); MEAN CORPUSCULAR HEMOGLOBIN 31 PG (25-34); MEAN CORPUSCULAR HGB CONC 34 G/DL (32-36); MEAN CORPUSCULAR VOLUME 92 FL (80-99); MEAN PLATELET VOLUME 11.3 FL (7.4-10.4); PLATELET COUNT 174 10^3/uL (130-400); RED BLOOD COUNT 3.79 10^6/uL (4.35-5.85); RED CELL DISTRIBUTION WIDTH 14.4 % (10.0-14.5)
[2018-02-12 03:27] LABS: WHITE BLOOD COUNT 75.8 10^3/uL (4.3-11.0)
[2018-02-12 03:29] LABS: EOSINOPHILS % (AUTO) 0 % (0-10); MONOCYTES # (AUTO) 6.2 X 10^3 (0.0-1.0); MONOCYTES % (AUTO) 8 % (0-12); NEUTROPHILS # (AUTO) 65.3 X 10^3 (1.8-7.8); NEUTROPHILS % (AUTO) 86 % (42-75)
[2018-02-12 03:41] LABS: ALANINE AMINOTRANSFERASE 30 U/L (0-55); ALBUMIN 2.5 GM/DL (3.2-4.5); ALKALINE PHOSPHATASE 60 U/L (40-136); BILIRUBIN,TOTAL 0.3 MG/DL (0.1-1.0); BUN/CREATININE RATIO 20; CALCIUM 7.7 MG/DL (8.5-10.1); CARBON DIOXIDE 27 MMOL/L (21-32); CHLORIDE 94 MMOL/L (98-107); CREATININE SERUM 0.69 MG/DL (0.60-1.30); GFR ESTIMATED > 60; GLUCOSE 94 MG/DL (70-105); MAGNESIUM 1.9 MG/DL (1.8-2.4); PHOSPHORUS 3.4 MG/DL (2.3-4.7); POTASSIUM 3.5 MMOL/L (3.6-5.0); SODIUM 132 MMOL/L (135-145); TOTAL PROTEIN 5.5 GM/DL (6.4-8.2)
[2018-02-12 04:43] LABS: BAND NEUTROPHILS 36 %; EOSINOPHILS % (MANUAL) 11 %; LYMPHOCYTES % (MANUAL) 5 %; METAMYELOCYTES % 1 %; MONOCYTES % (MANUAL) 6 %; NEUTROPHILS % (MANUAL) 40 %; NUCLEATED RED BLOOD CELLS 2; PROMYELOCYTES % 1 %; RBC MORPH NORMAL
[2018-02-12 04:44] LABS: TOXIC GRANULATION/VACUOLAZATIO 1+
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
[2018-02-12] MEDS ORDERED: LIDOCAINE 1% INJ 20 ML 20 ML VIAL ONE (05:26)
[2018-02-12 05:48] LABS: AMPHETAMINE SCREEN, URINE NEGATIVE (NEGATIVE); BARBITURATE SCREEN URINE NEGATIVE (NEGATIVE); BENZODIAZEPINES SCREEN URINE NEGATIVE (NEGATIVE); CANNABINOID SCREEN, URINE POSITIVE (NEGATIVE); COCAINE SCREEN URINE NEGATIVE (NEGATIVE); METHADONE STAT NEGATIVE (NEGATIVE); METHAMPHETAMINE SCREEN URINE S NEGATIVE (NEGATIVE); OPIATE SCREEN URINE NEGATIVE (NEGATIVE); OXYCODONE STAT NEGATIVE (NEGATIVE); PROPOXYPHENE STAT NEGATIVE (NEGATIVE); TRICYCLIC ANTIDEPRESSANTS SCRE NEGATIVE (NEGATIVE)
[2018-02-12] MEDS ORDERED: POTASSIUM CL 10MEQ/50ML IVPB 50 ML IV SCH (06:00)
[2018-02-12] MEDS ORDERED: MAGNESIUM 1 GM/100 ML IVPB 100 ML IV SCH (06:00)
[2018-02-12] MEDS ORDERED: KCL 20 MEQ TAB (K-DUR) PO SCH (06:00)
--- NOTE | 2018-02-12 06:19 | Pulmonary Procedures ---
Pulmonary Procedures Date of Procedure Date of Service: Feb 12, 2018 Procedure: US guided Right complex thoracentesis Preop DX: pleural effusion post op DX: Same ([1220cc of dark yellow fluid obtained) Complications: None After informed consent obtained US was used to localize pleural fluid. Pt has Right pleural effusions. Skin was anesthetized with 5cc of 1% lidocain without epi at approximately the 10th ICS right posterior axillary line. Thoracentesis needle was advanced through the 10th ICS posterior axillary line. Needle was removed and catheter left in place.1220cc of yellow fluid obtained using vacuum bottles. Catheter was then removed. Pt tolerated procedure well. No complications noted. STEVE WATERS DO Feb 12, 2018 06:19
[2018-02-12] MEDS ORDERED: PHARMACY TO DOSE IV SCH (06:30)
[2018-02-12] MEDS ORDERED: NS IV 1000 ML 1,000 ML IV ONE (06:30)
[2018-02-12 06:44] LABS: BODY FLUID SOURCE THOROCENTISIS
[2018-02-12 06:45] LABS: BODY FLUID APPEARENCE SLT CLDY; BODY FLUID COLOR YELLOW
[2018-02-12 07:10] LABS: TOTAL PROTEIN,BODY FLUID 3.7 G/DL
[2018-02-12] MEDS: RT-ALBUTEROL/IPRATROPIUM 3 ML (DUONEB) VIAL INH SCH ×4 (07:10→19:09)
[2018-02-12] MEDS: MEROPENEM 500 MG in NS (IVPB) 50 ML IV SCH ×3 (07:13→18:43)
--- NOTE | 2018-02-12 07:48 | Diagnostic Imaging Report ---
INDICATION: Status post thoracentesis. COMPARISON: Earlier same day FINDINGS: 2 frontal radiographic views of the chest were obtained and show interval decrease in right-sided pleural effusion status post thoracentesis. There is some residual right basilar airspace disease. No pneumothorax is seen on either side. Left lung is relatively well aerated. Cardiac silhouette and pulmonary vasculature remain prominent. IMPRESSION: 1. No pneumothorax status post right-sided thoracentesis. 2. Residual right basilar infiltrate and probable trace right effusion. 3. Persistent cardiomegaly and pulmonary vascular congestion. Dictated by: Dictated on workstation # [id number]
[2018-02-12] MEDS: NS IV 1000 ML 1,000 ML IV SCH ×3 (07:52→18:43)
--- NOTE | 2018-02-12 07:53 | Diagnostic Imaging Report ---
INDICATION: Lung mass. Pleural effusion. Pneumonia. Comparison: 02/11/2018 FINDINGS: Single frontal radiographic view of the chest was obtained and demonstrates persistent moderate cardiomegaly. Pulmonary vasculature is mildly prominent as well. Lungs also continue to show mild right basilar effusion with associated right basilar airspace disease. Left lung is relatively clear. Overall, aeration is stable compared to prior exam. No pneumothorax is seen on either side. Bony structures are stable as well. IMPRESSION: 1. Stable exam of the chest showing mild right-sided effusion with associated right basilar atelectasis and/or infiltrate. 2. Persisting cardiomegaly with pulmonary vascular congestion. Dictated by: Dictated on workstation # [id number]
[2018-02-12] MEDS ORDERED: VANCOMYCIN 2000 MG/NS 500 ML IVPB IV NR ×2 (08:00)
[2018-02-12 08:42] LABS: BF OTHER CELLS 0 %; BODY FLUID RBC COUNT 2750 /uL; BODY FLUID WBC TOTAL COUNT 3500 /uL; LYMPHOCYTES,BODY FLUID 84 %
[2018-02-12] MEDS ORDERED: KCL 20 MEQ TAB (K-DUR) PO ONE (09:00)
[2018-02-12] MEDS: HYDROcodone/APAP 7.5 MG/325 MG (LORTAB, LORCET PLUS) TABLET PO PRN ×3 (09:27→21:52)
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
[2018-02-12] MEDS ORDERED: VORT5TAB PO (15:55)
[2018-02-12] MEDS ORDERED: DICL75TA2 PO (15:55)
[2018-02-12] MEDS ORDERED: GABA800T2 PO (15:55)
[2018-02-12] MEDS: VANCOMYCIN 1 GM/NS 250 ML IVPB IV SCH ×2 (16:21)
[2018-02-12] MEDS: GABAPENTIN 400 MG (NEURONTIN) CAP PO SCH ×2 (16:30→21:50)
[2018-02-12] MEDS ORDERED: cefTRIAXone FOR IV USE 1,000 MG in NS (IVPB) 50 ML IV SCH (21:00)
[2018-02-12] MEDS: ENOXAPARIN 40 MG/0.4 ML (LOVENOX) SYR SC SCH (21:50)
[2018-02-13] VITALS: BP 117/60
[2018-02-13] MEDS: VANCOMYCIN 1 GM/NS 250 ML IVPB IV SCH ×2 (01:02)
[2018-02-13] MEDS: MEROPENEM 500 MG in NS (IVPB) 50 ML IV SCH ×5 (01:02→23:47)
[2018-02-13 04:00] VITALS: BP_SYST 117; BP_SYST 124; BP_DIAS 60; BP_DIAS 66
[2018-02-13] MEDS: NS IV 1000 ML 1,000 ML IV SCH ×4 (04:24→22:57)
[2018-02-13] MEDS: HYDROcodone/APAP 7.5 MG/325 MG (LORTAB, LORCET PLUS) TABLET PO PRN ×4 (04:26→22:55)
[2018-02-13 05:18] LABS: BASOPHILS # (AUTO) 0.7 10^3/uL (0.0-0.1); BASOPHILS % (AUTO) 1 % (0-10); HEMATOCRIT 35 % (40-54); HEMOGLOBIN 11.3 G/DL (13.3-17.7); LYMPHOCYTES # (AUTO) 4.3 X 10^3 (1.0-4.0); LYMPHOCYTES % (AUTO) 6 % (12-44); MEAN CORPUSCULAR HEMOGLOBIN 31 PG (25-34); MEAN CORPUSCULAR HGB CONC 33 G/DL (32-36); MEAN CORPUSCULAR VOLUME 94 FL (80-99); MEAN PLATELET VOLUME 10.9 FL (7.4-10.4); PLATELET COUNT 220 10^3/uL (130-400); RED CELL DISTRIBUTION WIDTH 14.7 % (10.0-14.5)
[2018-02-13 05:21] LABS: WHITE BLOOD COUNT 78.6 10^3/uL (4.3-11.0)
[2018-02-13 05:22] LABS: NEUTROPHILS % (AUTO) 84 % (42-75)
[2018-02-13 05:23] LABS: EOSINOPHILS % (AUTO) 0 % (0-10); MONOCYTES # (AUTO) 7.6 X 10^3 (0.0-1.0); MONOCYTES % (AUTO) 9 % (0-12); NEUTROPHILS # (AUTO) 65.9 X 10^3 (1.8-7.8)
[2018-02-13 05:43] LABS: ALANINE AMINOTRANSFERASE 45 U/L (0-55); ALBUMIN 2.4 GM/DL (3.2-4.5); ALKALINE PHOSPHATASE 65 U/L (40-136); BILIRUBIN,TOTAL 0.3 MG/DL (0.1-1.0); BUN/CREATININE RATIO 11; CALCIUM 7.6 MG/DL (8.5-10.1); CARBON DIOXIDE 26 MMOL/L (21-32); CHLORIDE 101 MMOL/L (98-107); CREATININE SERUM 0.65 MG/DL (0.60-1.30); GFR ESTIMATED > 60; GLUCOSE 103 MG/DL (70-105); POTASSIUM 3.5 MMOL/L (3.6-5.0); SODIUM 136 MMOL/L (135-145); TOTAL PROTEIN 5.6 GM/DL (6.4-8.2)
[2018-02-13 05:45] LABS: BAND NEUTROPHILS 20 %; EOSINOPHILS % (MANUAL) 17 %; LYMPHOCYTES % (MANUAL) 6 %; MONOCYTES % (MANUAL) 3 %; NEUTROPHILS % (MANUAL) 36 %
[2018-02-13 05:46] LABS: METAMYELOCYTES % 8 %; PROMYELOCYTES % 10 %; RBC MORPH NORMAL
[2018-02-13 05:49] LABS: FIBRIN DEGRADATION PRODUCTS 2.19 UG/ML (0.00-0.49); INR 1.2 (0.8-1.4); PROTHROMBIN TIME PATIENT 15.4 SEC (12.2-14.7)
--- NOTE | 2018-02-13 06:42 | Pulmonary Progress Note ---
Subjective Time Seen by Provider: 13:02 Subjective/Events-last exam persistent SOB no productive cough. Sepsis Event Evaluation Height, Weight, BMI Height: 6'1.00" Weight: 235lbs. 0.0oz. 106.954334rb; 31.3 BMI Method:Stated Focused Exam Lactate Level 02/11/18 19:45: Lactic Acid Level 1.12 Exam Exam Vital Signs Date Time Temp Pulse Resp B/P (MAP) Pulse Ox O2 Delivery O2 Flow Rate FiO2 02/13/18 04:26 100.8 02/13/18 00:00 100.7 110 22 117/60 (79) 93 Room Air 02/13/18 00:00 93 Room Air 02/12/18 20:15 100.0 111 16 116/61 (79) 97 Room Air 02/12/18 20:00 93 Room Air 02/12/18 19:09 94 Room Air 02/12/18 16:53 101.6 122 16 105/58 (74) 95 Room Air 02/12/18 16:25 100.7 02/12/18 16:00 93 Room Air 02/12/18 15:09 92 Room Air 02/12/18 13:35 93 Room Air 02/12/18 13:00 101 02/12/18 13:00 103 114/81 (92) 95 Nasal Cannula 2.00 02/12/18 12:00 99 Nasal Cannula 2.00 02/12/18 12:00 107 40 108/61 (77) 92 Nasal Cannula 2.00 02/12/18 11:00 114 24 118/69 (85) 95 Nasal Cannula 2.00 02/12/18 10:30 96 Nasal Cannula 2.00 02/12/18 10:00 110 32 119/63 (81) 93 Nasal Cannula 2.00 02/12/18 09:00 112 31 146/68 (94) 94 Nasal Cannula 2.00 02/12/18 08:00 110 26 124/65 (84) 94 Nasal Cannula 2.00 02/12/18 08:00 97 Nasal Cannula 2.00 02/12/18 07:10 96 Nasal Cannula 2.00 02/12/18 07:00 105 02/12/18 07:00 105 13 111/68 (82) 95 Nasal Cannula 2.00 I & O 02/13/18 07:00 Intake Total 1775 ml Output Total 1850 ml Balance -75 ml Height & Weight Height: 6'1.00" Weight: 235lbs. 0.0oz. 106.262766gm; 31.3 BMI Method:Stated General Appearance: No Apparent Distress, Anxious HEENT: PERRL/EOMI, TMs Normal Neck: Full Range of Motion, Non Tender, Supple Respiratory: Decreased Breath Sounds Cardiovascular: Regular Rate, Rhythm, No Edema, No Gallop Capillary Refill: Less Than 3 Seconds Gastrointestinal: normal bowel sounds, non tender, soft, no organomegaly, no pulsatile mass Extremity: Normal Capillary Refill Neurologic/Psychiatric: Alert, Oriented x3 Skin: Normal Color, Warm/Dry Results Lab Laboratory Tests 02/11/18 18:50 02/12/18 02:55 02/13/18 04:54 Assessment/Plan Assessment/Plan Sepsis with Pneumonia and probable empyema - community acquired -S/P Thoracentesis -CXR appears worse then yesterday will check US of chest -vancomycin and Merrem ( pt has a hx of MRSA upon reviewing past C&S) complicated right pleural effusion with atelectasis -- Exudative effusion -Will need to follow imaging to complete resolution Hyponatremia -MOnitor Hypokalemia -replace Tobacco hx Hx of alcohol and drug use Anemia STEVE WATERS DO Feb 13, 2018 06:42
[2018-02-13] MEDS: RT-ALBUTEROL/IPRATROPIUM 3 ML (DUONEB) VIAL INH SCH ×4 (06:59→19:27)
[2018-02-13] MEDS ORDERED: TROUGH ORDER-PHARMACY XX NR (07:00)
--- NOTE | 2018-02-13 07:30 | Diagnostic Imaging Report ---
Clinical indication: Patient with multilobe pneumonia, lung mass and pleural effusion. Exam: Portable chest x-ray upright view. Comparison: Portable chest x-ray upright view dated 02/12/2018. Findings: There is stable cardiomegaly and pulmonary vascular prominence. There has been development of airspace consolidation involving the right midlung field right lung base. There is persistent mild atelectasis versus infiltrate involving the left lung base region. There is blunting of right costophrenic angle which may represent pleural effusion. There is no pneumothorax or left pleural effusion. The remainder of this exam shows no significant interval change compared to the prior study of comparison. Impression: 1: Interval development of increased lung infiltrate in the right midlung field right lung base. There is also concern for possible right pleural effusion. 2: There is stable suspected mild atelectasis versus infiltrate in left lung base. 3: Stable cardiomegaly and mild prominence of the pulmonary vasculature. The prominent appearance of the pulmonary vasculature may be related to portable projection or mild lung volume loss. Dictated by: Dictated on workstation # [id number]
[2018-02-13] MEDS: POTASSIUM CL 10MEQ/50ML IVPB 50 ML IV SCH ×6 (07:40→20:24)
[2018-02-13 08:00] VITALS: BP 141/61
[2018-02-13] MEDS ORDERED: VANCOMYCIN 1500 MG/NS 500 ML IVPB IV SCH ×2 (08:00)
[2018-02-13] MEDS: VANCOMYCIN INJECTION 1,250 MG in NS (IVPB) 250 ML IV SCH ×3 (08:51→23:47)
[2018-02-13] MEDS: PANTOPRAZOLE 40 MG (PROTONIX) TAB PO SCH ×2 (08:56→20:52)
[2018-02-13] MEDS: GABAPENTIN 400 MG (NEURONTIN) CAP PO SCH ×4 (08:56→20:52)
--- NOTE | 2018-02-13 09:33 | Diagnostic Imaging Report ---
Indication: Pleural effusion. Findings: There is a small amount of septated pleural fluid on the right lung and right pleural space, left side, showed no obvious pleural fluid. Impression: Negative left multiseptated right-sided small amount of pleural fluid posteriorly noted. Dictated by: Dictated on workstation # [id number]
[2018-02-13 12:00] VITALS: BP 137/64
--- NOTE | 2018-02-13 12:15 | Progress Note (SOAP) ---
Subjective Subjective/Events-last exam Febrile overnight, but feeling fairly well. Denies other concerns. Review of Systems Date Seen by Provider: Feb 13, 2018 Time Seen by Provider: 10:25 Focused Exam Lactate Level 02/11/18 19:45: Lactic Acid Level 1.12 Objective Exam Last Set of Vital Signs Vital Signs Date Time Temp Pulse Resp B/P (MAP) Pulse Ox O2 Delivery O2 Flow Rate FiO2 02/13/18 10:20 92 Room Air 02/13/18 08:00 99.7 112 20 141/61 (87) 02/12/18 13:00 2.00 02/12/18 00:30 32 Capillary Refill : Less Than 3 Seconds I&O Intake and Output 02/13/18 00:00 Intake Total 2375 ml Output Total 3770 ml Balance -1395 ml Intake Oral 1375 ml IV Total 1000 ml Output Urine Total 2550 ml Other 1220 ml General: Alert, No Acute Distress Lungs: Other (faint rales on right) Heart: Regular Rate, No Murmurs Neuro: Normal Speech Psych/Mental Status: Mental Status NL Results/Procedures Lab Laboratory Tests 02/13/18 04:54: White Blood Count 78.6*H, Red Blood Count 3.70L, Hemoglobin 11.3L, Hematocrit 35L, Mean Corpuscular Volume 94, Mean Corpuscular Hemoglobin 31, Mean Corpuscular Hemoglobin Concent 33, Red Cell Distribution Width 14.7H, Platelet Count 220, Mean Platelet Volume 10.9H, Neutrophils (%) (Auto) 84H, Lymphocytes ( %) (Auto) 6L, Monocytes (%) (Auto) 9, Eosinophils (%) (Auto) 0, Basophils (%) ( Auto) 1, Neutrophils # (Auto) 65.9H, Lymphocytes # (Auto) 4.3H, Monocytes # ( Auto) 7.6H, Eosinophils # (Auto) 0.0, Basophils # (Auto) 0.7H, Neutrophils % ( Manual) 36, Lymphocytes % (Manual) 6, Monocytes % (Manual) 3, Eosinophils % ( Manual) 17, Metamyelocytes % 8, Promyelocytes % 10, Band Neutrophils 20, Blood Morphology Comment NORMAL, Prothrombin Time 15.4H, INR Comment 1.2, Fibrinogen 548H, D-Dimer 2.19H, Sodium Level 136, Potassium Level 3.5L, Chloride Level 101 , Carbon Dioxide Level 26, Anion Gap 9, Blood Urea Nitrogen 7, Creatinine 0.65, Estimat Glomerular Filtration Rate > 60, BUN/Creatinine Ratio 11, Glucose Level 103, Calcium Level 7.6L, Corrected Calcium 8.9, Total Bilirubin 0.3, Aspartate Amino Transf (AST/SGOT) 41H, Alanine Aminotransferase (ALT/SGPT) 45, Alkaline Phosphatase 65, Lactate Dehydrogenase 519H, Total Protein 5.6L, Albumin 2.4L 02/13/18 06:50: Vancomycin Level Trough 8.3L Microbiology 02/11/18 Blood Culture - Preliminary, Resulted No growth 02/12/18 Gram Stain - Final, Resulted 02/12/18 Body Fluid Culture - Preliminary, Resulted No growth 02/11/18 Influenza Types A,B Antigen (JUANA) - Final, Complete 02/11/18 Urine Culture - Final, Complete See Report Radiology 02/11 CXR: IMPRESSION: 1. Nonspecific right greater than left bibasilar airspace consolidation with probable right-sided pleural effusion. 2. Unchanged cardiomegaly. 02/[address]: CT chest: 1. Small to moderate right pleural effusion of uncertain exact causative etiology. Consider pleural fluid analysis. 2. Nonspecific right lower lobe airspace consolidation which does appear to be along the bronchovascular distribution and somewhat wedge-shaped. 3. Nondiagnostic assessment for pulmonary embolus. Enlarged main pulmonary artery diameter suggesting pulmonary artery hypertension. 4. Prominent right paratracheal, AP window and subcarinal lymph nodes which potentially could relate to the process associated with the right pleural effusion and right lower lobe airspace consolidation. This does increase concern for possibility of infection or neoplasm. 5. Nonspecific stranding of the mediastinal fat which is abnormal. 6. No cardiomegaly. No pericardial effusion. This does appear fairly similar to July 06, 2012. Assessment/Plan Assessment/Plan (1) Sepsis Status: Acute Assessment & Plan: Febrile, leukocytosis and tachycardia with suspected pneumonia. No hypotension or lactic acidosis, no end organ dysfunction. Antibiotics as noted under pneumonia. Qualifiers: Qualified Codes: A41.9 - Sepsis, unspecified organism (2) Pneumonia Status: Acute Assessment & Plan: Meropenem and vancomycin 02/13- remains febrile, no growth yet from pleural fluid, continue abx, US pending per Dr. Sharma to look for encapsulated infection. (3) Pleural effusion Status: Acute Assessment & Plan: Pulmonology consulted, thoracentesis done this morning, will follow results of fluid analysis. 02/13- exudative by all 3 Light's criteria, still suspect infection, but differential for exudative is large, if not improving with abx, consider malignancy as noted with leukocytosis. (4) Leukocytosis Status: Acute Assessment & Plan: Massive, concerning for malignancy, but without blasts and overall consistent with infectious etiology per Hematology. Appreciate recommendations. (5) Chronic pain Status: Chronic Assessment & Plan: Resume home gabapentin Qualifiers: Qualified Codes: G89.4 - Chronic pain syndrome (6) Depression Status: Chronic Assessment & Plan: Resume home med (7) DVT prophylaxis Status: Acute Assessment & Plan: Enoxaparin Clinical Quality Measures DVT/VTE Risk/Contraindication: Risk Factor Score Per Nursin RFS Level Per Nursing on Admit: 3=High SATYA SMITH MD Feb 13, 2018 12:14 pm
--- NOTE | 2018-02-13 16:33 | Progress Note-Standard ---
Standard Progress Note Progress Notes/Assess & Plan Date Seen by Provider: Feb 13, 2018 Time Seen by Provider: 16:28 Progress/Assessment & Plan 37-year-old male admitted to the hospital with febrile illness and noted to have left pleural effusion and atelectasis. Significant leukocytosis on admission and hematology consultation requested. Patient completed left thoracentesis with cultures and is on broad-spectrum antibiotics with meropenem and vancomycin. Still having low-grade fever but clinically feeling better. CBC and smear reviewed again today. Discussed findings with Dr. Myers who also reviewed the smear. Leukocytosis is stable. Differential diagnosis includes leukemoid reaction secondary to infection versus myeloproliferative disorder or an overlap syndrome with chronic myelomonocytic leukemia. BCR ABL by fish has been requested and pending. Continue broad-spectrum antibiotics and await final culture results. If the leukocytosis persists or worsens over the next few days with no evidence of infection and no benefit with antibiotics , patient will need a bone marrow aspiration and biopsy for further evaluation. We will follow the patient with you. Focused Exam Lactate Level 02/11/18 19:45: Lactic Acid Level 1.12 VERNA REID Feb 13, 2018 16:33
[2018-02-13 16:47] VITALS: BP 124/65
[2018-02-13] MEDS: ENOXAPARIN 40 MG/0.4 ML (LOVENOX) SYR SC SCH (18:39)
[2018-02-13 19:32] VITALS: BP 132/66
[2018-02-14] VITALS: BP 122/67
[2018-02-14 04:00] VITALS: BP 141/75
[2018-02-14] MEDS: NS IV 1000 ML 1,000 ML IV SCH ×2 (05:03→16:58)
[2018-02-14] MEDS: HYDROcodone/APAP 7.5 MG/325 MG (LORTAB, LORCET PLUS) TABLET PO PRN ×4 (05:05→23:41)
[2018-02-14] MEDS: MEROPENEM 500 MG in NS (IVPB) 50 ML IV SCH ×3 (06:12→18:42)
[2018-02-14] MEDS ORDERED: TROUGH ORDER-PHARMACY XX NR (07:00)
[2018-02-14 07:28] LABS: BASOPHILS # (AUTO) 0.6 10^3/uL (0.0-0.1); BASOPHILS % (AUTO) 1 % (0-10); EOSINOPHILS % (AUTO) 0 % (0-10); HEMATOCRIT 35 % (40-54); HEMOGLOBIN 11.6 G/DL (13.3-17.7); LYMPHOCYTES # (AUTO) 4.1 X 10^3 (1.0-4.0); LYMPHOCYTES % (AUTO) 5 % (12-44); MEAN CORPUSCULAR HEMOGLOBIN 31 PG (25-34); MEAN CORPUSCULAR HGB CONC 33 G/DL (32-36); MEAN CORPUSCULAR VOLUME 93 FL (80-99); MEAN PLATELET VOLUME 10.5 FL (7.4-10.4); MONOCYTES # (AUTO) 4.6 X 10^3 (0.0-1.0); MONOCYTES % (AUTO) 5 % (0-12); NEUTROPHILS # (AUTO) 79.9 X 10^3 (1.8-7.8); NEUTROPHILS % (AUTO) 90 % (42-75); PLATELET COUNT 280 10^3/uL (130-400); RED BLOOD COUNT 3.78 10^6/uL (4.35-5.85); RED CELL DISTRIBUTION WIDTH 14.7 % (10.0-14.5)
--- NOTE | 2018-02-14 07:37 | Pulmonary Progress Note ---
Subjective Time Seen by Provider: 13:10 Subjective/Events-last exam No complications noted. Sepsis Event Evaluation Height, Weight, BMI Height: 6'1.00" Weight: 239lbs. 1.0oz. 108.899815sl; 31.3 BMI Method:Stated Focused Exam Lactate Level 02/11/18 19:45: Lactic Acid Level 1.12 Exam Exam Vital Signs Date Time Temp Pulse Resp B/P (MAP) Pulse Ox O2 Delivery O2 Flow Rate FiO2 02/14/18 05:05 100.0 02/14/18 04:00 Room Air 02/14/18 04:00 100.0 118 16 141/75 (97) 94 Room Air 02/14/18 00:00 98.2 117 20 122/67 (85) 94 Room Air 02/14/18 00:00 Room Air 02/13/18 20:00 Room Air 02/13/18 19:32 97.9 112 16 132/66 (88) 92 Room Air 02/13/18 19:28 92 Room Air 02/13/18 16:47 100.9 111 16 124/65 (84) 95 Room Air 02/13/18 16:00 Room Air 02/13/18 15:13 94 Room Air 02/13/18 12:00 99.0 115 22 137/64 (88) 93 Room Air 02/13/18 12:00 Room Air 02/13/18 10:20 92 Room Air 02/13/18 08:10 93 Room Air 02/13/18 08:00 99.7 112 20 141/61 (87) 90 Room Air I & O 02/14/18 07:00 Intake Total 1690 ml Output Total 725 ml Balance 965 ml Height & Weight Height: 6'1.00" Weight: 239lbs. 1.0oz. 108.481989ee; 31.3 BMI Method:Stated General Appearance: No Apparent Distress, Anxious HEENT: PERRL/EOMI, TMs Normal Neck: Full Range of Motion, Non Tender, Supple Respiratory: Decreased Breath Sounds Cardiovascular: Regular Rate, Rhythm, No Edema, No Gallop Capillary Refill: Less Than 3 Seconds Gastrointestinal: normal bowel sounds, non tender, soft, no organomegaly, no pulsatile mass Extremity: Normal Capillary Refill Neurologic/Psychiatric: Alert, Oriented x3 Skin: Normal Color, Warm/Dry Results Lab Laboratory Tests 02/13/18 04:54 Assessment/Plan Assessment/Plan Sepsis with Pneumonia with empyema - community acquired -- persistent fever leukocytosis -S/P Thoracentesis -US reviewed pleural effusion is loculated -Consult Dr. Hernandez for decortication/pleurodesis -repeat CT of chest with contrast -Hold lovenox for possible surgery today -Today's labs are pending -vancomycin and Merrem ( pt has a hx of MRSA upon reviewing past C&S) complicated right pleural effusion with atelectasis -- Exudative effusion -Will need to follow imaging to complete resolution Hyponatremia -MOnitor Tobacco hx Hx of alcohol and drug use Anemia STEVE WATERS DO Feb 14, 2018 07:37
[2018-02-14] MEDS: RT-ALBUTEROL/IPRATROPIUM 3 ML (DUONEB) VIAL INH SCH ×4 (07:40→19:07)
[2018-02-14 07:43] LABS: BUN/CREATININE RATIO 10; CALCIUM 7.8 MG/DL (8.5-10.1); CARBON DIOXIDE 23 MMOL/L (21-32); CHLORIDE 103 MMOL/L (98-107); CREATININE SERUM 0.58 MG/DL (0.60-1.30); GFR ESTIMATED > 60; GLUCOSE 100 MG/DL (70-105); SODIUM 135 MMOL/L (135-145)
[2018-02-14] MEDS ORDERED: NS 250 ML (IVPB) BAG IV ONE (07:45)
[2018-02-14] MEDS ORDERED: IOHEXOL 350 MG/ML 100 ML (OMNIPAQUE 350) VIAL IV ONE (07:45)
[2018-02-14 07:51] LABS: VANCOMYCIN,TROUGH 9.1 UG/ML (10.0-20.0)
[2018-02-14 07:57] LABS: WHITE BLOOD COUNT 89.2 10^3/uL (4.3-11.0)
[2018-02-14 07:58] LABS: BAND NEUTROPHILS 9 %; EOSINOPHILS % (MANUAL) 43 %; LYMPHOCYTES % (MANUAL) 4 %; METAMYELOCYTES % 6 %; MONOCYTES % (MANUAL) 6 %; MYELOCYTES % 3 %; NEUTROPHILS % (MANUAL) 24 %; POLYCHROMASIA SLIGHT; PROMYELOCYTES % 5 %
[2018-02-14 08:00] VITALS: BP 147/84
[2018-02-14] MEDS ORDERED: RECEIVED CONTRAST (Hold Metformin) IV SCH (08:00)
--- NOTE | 2018-02-14 08:31 | Diagnostic Imaging Report ---
PROCEDURE: CT chest with contrast only. TECHNIQUE: Multiple contiguous axial images were obtained through the chest after administration of intravenous contrast. INDICATION: Respiratory distress. Compared to 02/11/2018 FINDINGS: There is slight reduction in right-sided pleural fluid volume, right pleural fluid appears free flowing without features of septation or partial loculations present previously. There is a tiny nonloculated left pleural effusion. Interfissural pleural fluid on the right resolved. Some lower right paratracheal, left para-aortic and subcarinal mediastinal nodes showed fatty michael and are similar to the previous exam suggestive of reactive disease. The wedge configured airspace opacity posteriorly oriented in the right lower lobe posteroinferiorly, not substantially changed. No new focal pulmonary parenchymal abnormality. There is no pneumothorax. No acute chest wall abnormality. IMPRESSION: Decreased right pleural fluid showing no evidence for septation or loculation on followup, slight progression of a small simple left pleural effusion. Wedge configured airspace density in the infrahilar right lower lobe unchanged. The remaining lung cabrera were clear. No pneumothorax. Some mild likely reactive mediastinal lymphadenopathy unchanged. No significant adverse development from prior. Dictated by: Dictated on workstation # [id number]
--- NOTE | 2018-02-14 09:08 | Diagnostic Imaging Report ---
INDICATION: Pneumonia, pleural effusion, mass.. TECHNIQUE: Single view chest 3:17 AM. CORRELATION STUDY: 02/13/2018 FINDINGS: Heart size remains enlarged. Mediastinum stable. Vasculature overall improved but does remain prominent. There has been improvement of aeration throughout the lung cabrera. Some residual airspace disease particularly at the right lower lobe. IMPRESSION: 1. Cardiac enlargement with vascular overall improved from prior study. 2. Improved aeration through the lung cabrera. Some airspace disease of the right lung base does persist. Dictated by: Dictated on workstation # [id number]
--- NOTE | 2018-02-14 10:04 | Progress Note (SOAP) ---
Subjective Subjective/Events-last exam Febrile still. Feeling very anxious this morning after hearing that he may need surgery. Review of Systems Date Seen by Provider: Feb 14, 2018 Time Seen by Provider: 09:15 Focused Exam Lactate Level 02/11/18 19:45: Lactic Acid Level 1.12 Objective Exam Last Set of Vital Signs Vital Signs Date Time Temp Pulse Resp B/P (MAP) Pulse Ox O2 Delivery O2 Flow Rate FiO2 02/14/18 08:00 99.1 112 18 147/84 (105) 96 Room Air 02/12/18 13:00 2.00 02/12/18 00:30 32 Capillary Refill : Less Than 3 Seconds I&O Intake and Output 02/14/18 00:00 Intake Total 2862 ml Output Total 700 ml Balance 2162 ml Intake Oral 1512 ml IV Total 1350 ml Output Urine Total 700 ml # Voids 7 # Bowel Movements 2 General: Alert, Mild Distress (appears anxious, rocking in bed) Lungs: Clear to Auscultation, Normal Air Movement Heart: No Murmurs, Other (tachycardic) Neuro: Normal Speech Psych/Mental Status: Other (anxious) Results/Procedures Lab Laboratory Tests 02/14/18 07:20: White Blood Count 89.2*H, Red Blood Count 3.78L, Hemoglobin 11.6L, Hematocrit 35L, Mean Corpuscular Volume 93, Mean Corpuscular Hemoglobin 31, Mean Corpuscular Hemoglobin Concent 33, Red Cell Distribution Width 14.7H, Platelet Count 280, Mean Platelet Volume 10.5H, Neutrophils (%) (Auto) 90H, Lymphocytes ( %) (Auto) 5L, Monocytes (%) (Auto) 5, Eosinophils (%) (Auto) 0, Basophils (%) ( Auto) 1, Neutrophils # (Auto) 79.9H, Lymphocytes # (Auto) 4.1H, Monocytes # ( Auto) 4.6H, Eosinophils # (Auto) 0.0, Basophils # (Auto) 0.6H, Neutrophils % ( Manual) 24, Lymphocytes % (Manual) 4, Monocytes % (Manual) 6, Eosinophils % ( Manual) 43, Metamyelocytes % 6, Myelocytes % 3, Promyelocytes % 5, Band Neutrophils 9, Polychromasia SLIGHT, Sodium Level 135, Potassium Level 4.0, Chloride Level 103, Carbon Dioxide Level 23, Anion Gap 9, Blood Urea Nitrogen 6L , Creatinine 0.58L, Estimat Glomerular Filtration Rate > 60, BUN/Creatinine Ratio 10, Glucose Level 100, Calcium Level 7.8L, Vancomycin Level Trough 9.1L Microbiology 02/11/18 Blood Culture - Preliminary, Resulted No growth 02/12/18 Gram Stain - Final, Resulted 02/12/18 Body Fluid Culture - Preliminary, Resulted No growth 02/11/18 Influenza Types A,B Antigen (JUANA) - Final, Complete 02/11/18 Urine Culture - Final, Complete See Report 02/12/18 Anaerobic Culture, Resulted Pending 02/12/18 Fungal Culture - Preliminary, Resulted Culture In Progress Radiology 02/11 CXR: IMPRESSION: 1. Nonspecific right greater than left bibasilar airspace consolidation with probable right-sided pleural effusion. 2. Unchanged cardiomegaly. 02/[address]: CT chest: 1. Small to moderate right pleural effusion of uncertain exact causative etiology. Consider pleural fluid analysis. 2. Nonspecific right lower lobe airspace consolidation which does appear to be along the bronchovascular distribution and somewhat wedge-shaped. 3. Nondiagnostic assessment for pulmonary embolus. Enlarged main pulmonary artery diameter suggesting pulmonary artery hypertension. 4. Prominent right paratracheal, AP window and subcarinal lymph nodes which potentially could relate to the process associated with the right pleural effusion and right lower lobe airspace consolidation. This does increase concern for possibility of infection or neoplasm. 5. Nonspecific stranding of the mediastinal fat which is abnormal. 6. No cardiomegaly. No pericardial effusion. This does appear fairly similar to July 06, 2012. Assessment/Plan Assessment/Plan (1) Sepsis Status: Acute Assessment & Plan: Febrile, leukocytosis and tachycardia with suspected pneumonia. No hypotension or lactic acidosis, no end organ dysfunction. Antibiotics as noted under pneumonia. Qualifiers: Qualified Codes: A41.9 - Sepsis, unspecified organism (2) Pneumonia Status: Acute Assessment & Plan: Meropenem and vancomycin 02/13- remains febrile, no growth yet from pleural fluid, continue abx, US pending per Dr. Sharma to look for encapsulated infection. 02/14- persistent fever and worsening leukocytosis, US with loculated fluid, possible surgery today (3) Pleural effusion Status: Acute Assessment & Plan: Pulmonology consulted, thoracentesis done this morning, will follow results of fluid analysis. 02/13- exudative by all 3 Light's criteria, still suspect infection, but differential for exudative is large, if not improving with abx, consider malignancy as noted with leukocytosis. (4) Leukocytosis Status: Acute Assessment & Plan: Massive, concerning for malignancy, but without blasts and overall consistent with infectious etiology per Hematology. Appreciate recommendations. BCR/ABL pending (5) Chronic pain Status: Chronic Assessment & Plan: Resume home gabapentin Qualifiers: Qualified Codes: G89.4 - Chronic pain syndrome (6) Depression Status: Chronic Assessment & Plan: Resume home med (7) Anxiety about health Status: Acute Assessment & Plan: Will try hydroxyzine prn, if still feeling significantly anxious, consider low dose lorazepam (8) DVT prophylaxis Status: Acute Assessment & Plan: Enoxaparin Clinical Quality Measures DVT/VTE Risk/Contraindication: Risk Factor Score Per Nursin RFS Level Per Nursing on Admit: 3=High SATYA SMITH MD Feb 14, 2018 10:04 am
[2018-02-14] MEDS: hydrOXYzine (VISTARIL) 25 MG CAP PO PRN (10:35)
[2018-02-14] MEDS: GABAPENTIN 400 MG (NEURONTIN) CAP PO SCH ×4 (10:35→20:04)
[2018-02-14] MEDS: PANTOPRAZOLE 40 MG (PROTONIX) TAB PO SCH ×2 (10:36→20:04)
[2018-02-14] MEDS: VANCOMYCIN 1,750 MG/NS 500 ML IVPB IV SCH ×4 (10:53→18:20)
[2018-02-14 12:00] VITALS: BP 130/74
[2018-02-14 12:47] LABS: ABSOLUTE RETIC # 48 10e9/L (24-90); RETICULOCYTE % 1.24 % (0.50-2.40)
--- NOTE | 2018-02-14 12:57 | Progress Note-Standard ---
Standard Progress Note Progress Notes/Assess & Plan Date Seen by Provider: Feb 14, 2018 Time Seen by Provider: 12:15 Progress/Assessment & Plan PROCEDURE NOTE. Procedure: Bone marrow aspiration and biopsy. Indication: Leukocytosis, neutrophilia, monocytosis. The procedure, indications and complications were explained to the patient and an informed consent was signed. Patient was placed in the left lateral decubitus position and the right posterior superior iliac spine area was prepped and draped. Local anesthesia using 2 percent Xylocaine was given. An [place] needle was passed in and an aspiration obtained on first attempt. The [place] needle was removed and a Jamshidi needle was passed in with a biopsy obtained on first attempt also. Adequate hemostasis was obtained and a sterile Band-Aid applied. Patient tolerated the procedure well. Specimen was sent to the lab for appropriate testing including flow cytometry if indicated, cytogenetics, JAK2 mutation analysis and BCR ABL. Focused Exam Lactate Level 02/11/18 19:45: Lactic Acid Level 1.12 VERNA REID Feb 14, 2018 12:57
[2018-02-14] MEDS ORDERED: oxyCODONE/APAP 10/325MG (PERCOCET 10) TABLET PO NR (14:15)
[2018-02-14 16:00] VITALS: BP 128/64
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
[2018-02-14 19:35] VITALS: BP 134/72
[2018-02-15] VITALS (7 sets, daily range): BP systolic 113–136; BP diastolic 66–74
[2018-02-15] MEDS: NS IV 1000 ML 1,000 ML IV SCH ×2 (00:02→12:03)
[2018-02-15] MEDS: MEROPENEM 500 MG in NS (IVPB) 50 ML IV SCH ×5 (00:02→23:50)
[2018-02-15] MEDS: VANCOMYCIN 1,750 MG/NS 500 ML IVPB IV SCH ×2 (02:19)
[2018-02-15 04:48] LABS: BASOPHILS # (AUTO) 0.4 10^3/uL (0.0-0.1); BASOPHILS % (AUTO) 1 % (0-10); HEMATOCRIT 35 % (40-54); HEMOGLOBIN 11.2 G/DL (13.3-17.7); LYMPHOCYTES # (AUTO) 4.2 X 10^3 (1.0-4.0); LYMPHOCYTES % (AUTO) 6 % (12-44); MEAN CORPUSCULAR HEMOGLOBIN 30 PG (25-34); MEAN CORPUSCULAR HGB CONC 32 G/DL (32-36); MEAN CORPUSCULAR VOLUME 94 FL (80-99); MEAN PLATELET VOLUME 10.4 FL (7.4-10.4); MONOCYTES # (AUTO) 3.6 X 10^3 (0.0-1.0); MONOCYTES % (AUTO) 5 % (0-12); PLATELET COUNT 327 10^3/uL (130-400); RED BLOOD COUNT 3.75 10^6/uL (4.35-5.85); RED CELL DISTRIBUTION WIDTH 14.9 % (10.0-14.5)
[2018-02-15 04:54] LABS: WHITE BLOOD COUNT 75.7 10^3/uL (4.3-11.0)
[2018-02-15 04:55] LABS: EOSINOPHILS % (AUTO) 0 % (0-10); NEUTROPHILS # (AUTO) 67.4 X 10^3 (1.8-7.8); NEUTROPHILS % (AUTO) 88 % (42-75)
[2018-02-15 04:59] LABS: BUN/CREATININE RATIO 8; CALCIUM 7.7 MG/DL (8.5-10.1); CARBON DIOXIDE 24 MMOL/L (21-32); CHLORIDE 103 MMOL/L (98-107); GFR ESTIMATED > 60; GLUCOSE 84 MG/DL (70-105); POTASSIUM 3.7 MMOL/L (3.6-5.0); SODIUM 137 MMOL/L (135-145)
[2018-02-15] MEDS ORDERED: LIDOCAINE 1% INJ 20 ML 20 ML VIAL ONE (05:52)
--- NOTE | 2018-02-15 05:57 | Pulmonary Progress Note ---
Subjective Time Seen by Provider: 06:29 Subjective/Events-last exam Pt denies SOB. He is still running high fever. Sepsis Event Evaluation Height, Weight, BMI Height: 6'1.00" Weight: 239lbs. 1.0oz. 108.348629rp; 31.3 BMI Method:Stated Exam Exam Vital Signs Date Time Temp Pulse Resp B/P (MAP) Pulse Ox O2 Delivery O2 Flow Rate FiO2 02/15/18 00:00 102.4 112 20 136/74 (94) 94 Room Air 02/14/18 20:00 Room Air 02/14/18 19:35 99.9 118 20 134/72 (92) 94 Room Air 02/14/18 19:09 96 Room Air 02/14/18 17:55 100.9 02/14/18 16:00 100.9 125 18 128/64 (85) 93 Room Air 02/14/18 16:00 Room Air 02/14/18 14:40 94 Room Air 02/14/18 12:00 Room Air 02/14/18 12:00 99.4 116 20 130/74 (92) 95 Room Air 02/14/18 11:43 94 Room Air 02/14/18 08:00 Room Air 02/14/18 08:00 Room Air 02/14/18 08:00 99.1 112 18 147/84 (105) 96 Room Air 02/14/18 07:40 95 Room Air I & O 02/15/18 07:00 Intake Total 2497.5 ml Output Total 400 ml Balance 2097.5 ml Height & Weight Height: 6'1.00" Weight: 239lbs. 1.0oz. 108.264181ym; 31.3 BMI Method:Stated General Appearance: No Apparent Distress, Anxious HEENT: PERRL/EOMI, TMs Normal Neck: Full Range of Motion, Non Tender, Supple Respiratory: Decreased Breath Sounds Cardiovascular: Regular Rate, Rhythm, No Edema, No Gallop Capillary Refill: Less Than 3 Seconds Gastrointestinal: non tender, soft, no organomegaly, no pulsatile mass Extremity: Normal Capillary Refill Neurologic/Psychiatric: Alert, Oriented x3 Skin: Normal Color, Warm/Dry Results Lab Laboratory Tests 02/14/18 07:20 02/15/18 04:25 Assessment/Plan Assessment/Plan Sepsis with Pneumonia with- community acquired -- persistent fever leukocytosis Tm 102.5 Complicated parapneumonic loculated small to moderate right pleural effusion r/ o empyema - US is more sensitive for loculations then CT scan -- This is exudative per lights criteria -Will plan for repeat thoracentesis today after repeat US of chest vs surgery for decortication -S/P Thoracentesis -US reviewed pleural effusion is loculated -Dr. Hernandez is following for possible decortication/pleurodesis -repeat CT of chest with contrast - shows effusion without loculation - US of pleural fluid is more sensitive at showing loculations -Pt is still running fever and high leukocytosis. -Pt will probably need decortication procedure. Will await results of today's testing. I have discussed patient's clinical condition extensively with Dr. Hernandez, and Dr. Diamond. -vancomycin and Merrem ( pt has a hx of MRSA upon reviewing past C&S) -Pt lost his IV access last night. Will have PICC line placed for continuation of IV Abx. extremely high leukocytosis s/p bone marrow bx -r/o malignancy Hyponatremia -MOnitor Tobacco hx Hx of alcohol and drug use Anemia 60min spent with patient, medical staff and discussing with Dr. Hernandez, and Dr. Diamond. STEVE WATERS DO Feb 15, 2018 05:57
[2018-02-15] MEDS: HYDROcodone/APAP 7.5 MG/325 MG (LORTAB, LORCET PLUS) TABLET PO PRN ×3 (06:08→19:10)
--- NOTE | 2018-02-15 07:28 | Diagnostic Imaging Report ---
INDICATION: Multilobar pneumonia. Pleural effusion. Lung mass. COMPARISON: 02/14/2018 FINDINGS: Single frontal view of the chest demonstrates stable enlargement cardiac silhouette, which is likely accentuated by prominent pericardial fat. Pulmonary vasculature is within normal limits. Lungs show trace bibasilar effusions. Right lower lobe infiltrate seen on recent CT chest is essentially inconspicuous on this exam. Bony structures show no new acute abnormalities. IMPRESSION: 1. Small bibasilar effusions. 2. Again, patient's known right lower lobe infiltrate is essentially inconspicuous on this exam. 3. Enlargement of the cardiac silhouette, which is accentuated by prominent pericardial fat. Dictated by: Dictated on workstation # [id number]
--- NOTE | 2018-02-15 07:36 | Diagnostic Imaging Report ---
INDICATION: Pleural fluid. Sonographic marking for planned thoracentesis was provided. IMPRESSION: Successful sonographic marking of the right chest for scheduled thoracentesis. Dictated by: Dictated on workstation # [id number]
[2018-02-15] MEDS: RT-ALBUTEROL/IPRATROPIUM 3 ML (DUONEB) VIAL INH SCH ×4 (07:42→19:21)
[2018-02-15] MEDS ORDERED: RT-ALBUTEROL/IPRATROPIUM 3 ML (DUONEB) VIAL INH PRN (08:00)
[2018-02-15] MEDS: PANTOPRAZOLE 40 MG (PROTONIX) TAB PO SCH ×2 (08:13→20:49)
[2018-02-15] MEDS: GABAPENTIN 400 MG (NEURONTIN) CAP PO SCH ×4 (08:13→20:50)
[2018-02-15] MEDS: hydrOXYzine (VISTARIL) 25 MG CAP PO PRN ×2 (08:14→20:52)
[2018-02-15] MEDS ORDERED: TROUGH ORDER-PHARMACY XX NR (09:00)
--- NOTE | 2018-02-15 10:23 | Pulmonary Procedures ---
Pulmonary Procedures Date of Procedure Date of Service: Feb 15, 2018 Procedure: US guided complex right thoracentesis Preop DX: pleural effusion post op DX: Same (800cc of yellow fluid obtained) Complications: None After informed consent obtained US was used to localize pleural fluid. Pt has [ bilateral R>L] pleural effusions. Skin was anesthetized at approximately the 10th ICS posterior axillary line. Thoracentesis needle was advanced through the 10th ICS posterior axillary line. Needle was removed and catheter left in place.800cc of yellow fluid obtained using vacuum bottles. Catheter was then removed. Pt tolerated procedure well. No complications noted. STEVE WATERS DO Feb 15, 2018 10:23
[2018-02-15 11:12] LABS: LDH,BODY FLUID 483 U/L; TOTAL PROTEIN,BODY FLUID 3.5 G/DL
--- NOTE | 2018-02-15 11:14 | Progress Note (SOAP) ---
Subjective Subjective/Events-last exam Febrile to 102, WBC slightly decreased today. Review of Systems Date Seen by Provider: Feb 15, 2018 Time Seen by Provider: 10:20 Objective Exam Last Set of Vital Signs Vital Signs Date Time Temp Pulse Resp B/P (MAP) Pulse Ox O2 Delivery O2 Flow Rate FiO2 02/15/18 09:00 Room Air 02/15/18 08:55 99.0 111 20 131/73 (92) 95 02/12/18 13:00 2.00 02/12/18 00:30 32 Capillary Refill : Less Than 3 Seconds I&O Intake and Output 02/15/18 00:00 Intake Total 2947.5 ml Output Total 650 ml Balance 2297.5 ml Intake Oral 2330 ml IV Total 617.5 ml Output Urine Total 650 ml # Voids 7 # Bowel Movements 2 General: Alert, No Acute Distress Lungs: Other (rales on right) Heart: Regular Rate, No Murmurs Neuro: Normal Speech Psych/Mental Status: Mental Status NL Results/Procedures Lab Laboratory Tests 02/15/18 04:25: White Blood Count 75.7*H, Red Blood Count 3.75L, Hemoglobin 11.2L, Hematocrit 35L, Mean Corpuscular Volume 94, Mean Corpuscular Hemoglobin 30, Mean Corpuscular Hemoglobin Concent 32, Red Cell Distribution Width 14.9H, Platelet Count 327, Mean Platelet Volume 10.4, Neutrophils (%) (Auto) 88H, Lymphocytes (% ) (Auto) 6L, Monocytes (%) (Auto) 5, Eosinophils (%) (Auto) 0, Basophils (%) ( Auto) 1, Neutrophils # (Auto) 67.4H, Lymphocytes # (Auto) 4.2H, Monocytes # ( Auto) 3.6H, Eosinophils # (Auto) 0.0, Basophils # (Auto) 0.4H, Sodium Level 137 , Potassium Level 3.7, Chloride Level 103, Carbon Dioxide Level 24, Anion Gap 10 , Blood Urea Nitrogen 5L, Creatinine 0.60, Estimat Glomerular Filtration Rate > 60, BUN/Creatinine Ratio 8, Glucose Level 84, Calcium Level 7.7L 02/15/18 09:35: Vancomycin Level Trough 6.0L 02/15/18 10:20: Microbiology 02/11/18 Blood Culture - Preliminary, Resulted No growth 02/12/18 Gram Stain - Final, Resulted 02/12/18 Body Fluid Culture - Preliminary, Resulted No growth 02/11/18 Influenza Types A,B Antigen (JUANA) - Final, Complete 02/11/18 Urine Culture - Final, Complete See Report 02/12/18 Anaerobic Culture - Preliminary, Resulted No anaerobes isolated 02/12/18 Fungal Culture - Preliminary, Resulted No growth Radiology 02/11 CXR: IMPRESSION: 1. Nonspecific right greater than left bibasilar airspace consolidation with probable right-sided pleural effusion. 2. Unchanged cardiomegaly. 02/[address]: CT chest: 1. Small to moderate right pleural effusion of uncertain exact causative etiology. Consider pleural fluid analysis. 2. Nonspecific right lower lobe airspace consolidation which does appear to be along the bronchovascular distribution and somewhat wedge-shaped. 3. Nondiagnostic assessment for pulmonary embolus. Enlarged main pulmonary artery diameter suggesting pulmonary artery hypertension. 4. Prominent right paratracheal, AP window and subcarinal lymph nodes which potentially could relate to the process associated with the right pleural effusion and right lower lobe airspace consolidation. This does increase concern for possibility of infection or neoplasm. 5. Nonspecific stranding of the mediastinal fat which is abnormal. 6. No cardiomegaly. No pericardial effusion. This does appear fairly similar to July 06, 2012. Assessment/Plan Assessment/Plan (1) Sepsis Status: Acute Assessment & Plan: Febrile, leukocytosis and tachycardia with suspected pneumonia. No hypotension or lactic acidosis, no end organ dysfunction. Antibiotics as noted under pneumonia. Qualifiers: Qualified Codes: A41.9 - Sepsis, unspecified organism (2) Pneumonia Status: Acute Assessment & Plan: Meropenem and vancomycin 02/13- remains febrile, no growth yet from pleural fluid, continue abx, US pending per Dr. Sharma to look for encapsulated infection. 02/14- persistent fever and worsening leukocytosis, US with loculated fluid, possible surgery today 02/15- held off on decortication due to concern for malignancy as possible cause more than infection. Repeat thoracentesis done today. Remains febrile, continue meropenem and vancomycin. No growth from cultures to date. (3) Pleural effusion Status: Acute Assessment & Plan: Pulmonology consulted, thoracentesis done this morning, will follow results of fluid analysis. 02/13- exudative by all 3 Light's criteria, still suspect infection, but differential for exudative is large, if not improving with abx, consider malignancy as noted with leukocytosis. 02/15 repeat thoracentesis, fluid analysis pending (4) Leukocytosis Status: Acute Assessment & Plan: Massive, concerning for malignancy, but without blasts and overall consistent with infectious etiology per Hematology. Appreciate recommendations. BCR/ABL pending (5) Chronic pain Status: Chronic Assessment & Plan: Resume home gabapentin Qualifiers: Qualified Codes: G89.4 - Chronic pain syndrome (6) Depression Status: Chronic Assessment & Plan: Resume home med (7) Anxiety about health Status: Acute Assessment & Plan: Will try hydroxyzine prn, if still feeling significantly anxious, consider low dose lorazepam (8) DVT prophylaxis Status: Acute Assessment & Plan: Enoxaparin- on hold 02/14 for possible procedure, defer to Pulm for resumption Clinical Quality Measures DVT/VTE Risk/Contraindication: Risk Factor Score Per Nursin RFS Level Per Nursing on Admit: 3=High SATYA SMITH MD Feb 15, 2018 11:14 am
[2018-02-15 11:16] LABS: GLUCOSE,BODY FLUID 82 MG/DL
--- NOTE | 2018-02-15 11:41 | Diagnostic Imaging Report ---
Indication: PICC line placement. Time of exam 11:28 AM Correlation is made with prior study earlier the same day. A right upper extremity PICC line has been placed and has tip overlying the SVC. No pneumothorax is identified. The heart is enlarged and stable. The lungs are clear. There is no failure. There may be trace left pleural fluid or pleural thickening. There are postop changes to the right clavicle. Impression: Satisfactory PICC line placement. Dictated by: Dictated on workstation # [id number]
[2018-02-15 11:49] LABS: BODY FLUID APPEARENCE MOD CLDY; BODY FLUID COLOR YELLOW; BODY FLUID RBC COUNT 3250 /uL; BODY FLUID SOURCE THORACEN; BODY FLUID WBC TOTAL COUNT 7180 /uL
[2018-02-15 12:56] LABS: BF OTHER CELLS 3 %; LYMPHOCYTES,BODY FLUID 17 %
[2018-02-15 13:15] LABS: BODY FLUID PH 7.3
--- NOTE | 2018-02-15 14:17 | Progress Note-Standard ---
Standard Progress Note Progress Notes/Assess & Plan Date Seen by Provider: Feb 15, 2018 Time Seen by Provider: 14:14 Progress/Assessment & Plan No new complaints of. MAXIMUM TEMPERATURE 102.4 today morning. Had right thoracentesis with 800 mL fluid removed. Very preliminary verbal report on the bone marrow slides is no features of an acute leukemia. Cell counts, final report and special studies pending. Continue management of infectious process as you are doing. WBC 75,000 range today. Continue to monitor serially. We will await bone marrow report. VERNA REID Feb 15, 2018 14:17
--- NOTE | 2018-02-15 16:33 | Progress Note ---
Subjective Date Seen by Provider: Feb 15, 2018 Time Seen by Provider: 16:28 Subjective/Events-last exam Patient with MAXIMUM TEMPERATURE of 102.4. He still has cough. Patient states that otherwise is doing pretty well. He had a thoracentesis today removing approximately 800 mL of fluid. Chest x-ray postoperatively reviewed and right lung appears clear. Patient has no new complaints. Denies any nausea vomiting fever sweats chills shortness of breath or chest pain. Objective Exam Vital Signs Date Time Temp Pulse Resp B/P (MAP) Pulse Ox O2 Delivery O2 Flow Rate FiO2 02/15/18 16:06 99.9 114 18 130/66 (87) 95 Room Air 02/15/18 15:40 95 Room Air 02/15/18 12:21 98.4 117 18 113/71 (85) 96 Room Air 02/15/18 12:12 94 Room Air 02/15/18 09:00 Room Air 02/15/18 08:55 99.0 111 20 131/73 (92) 95 Room Air 02/15/18 07:48 110 95 02/15/18 07:43 95 Room Air 02/15/18 04:00 100.3 108 20 135/72 (93) 94 Room Air 02/15/18 00:00 102.4 112 20 136/74 (94) 94 Room Air 02/14/18 20:00 Room Air 02/14/18 19:35 99.9 118 20 134/72 (92) 94 Room Air 02/14/18 19:09 96 Room Air 02/14/18 17:55 100.9 I & O 02/15/18 07:00 Intake Total 2747.5 ml Output Total 400 ml Balance 2347.5 ml Capillary Refill : Less Than 3 Seconds General Appearance: No Apparent Distress HEENT: PERRL/EOMI Neck: Full Range of Motion, Non Tender, Supple Respiratory: No Accessory Muscle Use, No Respiratory Distress, Decreased Breath Sounds Cardiovascular: Regular Rate, Rhythm, No Edema, No Gallop Gastrointestinal: non tender, soft, no organomegaly, no pulsatile mass Extremity: Other (Left above-knee amputation) Neurologic/Psychiatric: Alert, Oriented x3 Skin: Normal Color, Warm/Dry Results Lab Laboratory Tests 02/15/18 04:25: White Blood Count 75.7*H, Red Blood Count 3.75L, Hemoglobin 11.2L, Hematocrit 35L, Mean Corpuscular Volume 94, Mean Corpuscular Hemoglobin 30, Mean Corpuscular Hemoglobin Concent 32, Red Cell Distribution Width 14.9H, Platelet Count 327, Mean Platelet Volume 10.4, Neutrophils (%) (Auto) 88H, Lymphocytes (% ) (Auto) 6L, Monocytes (%) (Auto) 5, Eosinophils (%) (Auto) 0, Basophils (%) ( Auto) 1, Neutrophils # (Auto) 67.4H, Lymphocytes # (Auto) 4.2H, Monocytes # ( Auto) 3.6H, Eosinophils # (Auto) 0.0, Basophils # (Auto) 0.4H, Sodium Level 137 , Potassium Level 3.7, Chloride Level 103, Carbon Dioxide Level 24, Anion Gap 10 , Blood Urea Nitrogen 5L, Creatinine 0.60, Estimat Glomerular Filtration Rate > 60, BUN/Creatinine Ratio 8, Glucose Level 84, Calcium Level 7.7L 02/15/18 09:35: Vancomycin Level Trough 6.0L 02/15/18 10:20: Body Fluid Source THORACEN, Body Fluid Color YELLOW, Body Fluid Appearance MOD CLDY, Body Fluid pH 7.3, Body Fluid WBC 7180, Body Fluid RBC 3250, Body Fluid Polynuclear WBCs 73, Body Fluid Mononuclear WBCs 7, Body Fluid Lymphocytes 17, Body Fluid Other Cells 3, Body Fluid Glucose 82, Body Fluid Total Protein 3.5, Body Fluid Lactate Dehydrogenase 483 Microbiology 02/11/18 Blood Culture - Preliminary, Resulted No growth 02/12/18 Gram Stain - Final, Complete 02/12/18 Body Fluid Culture - Final, Complete No growth 02/11/18 Influenza Types A,B Antigen (JUANA) - Final, Complete 02/11/18 Urine Culture - Final, Complete See Report 02/12/18 Anaerobic Culture - Preliminary, Resulted No anaerobes isolated 02/12/18 Fungal Culture - Preliminary, Resulted No growth Assessment/Plan Assessment/Plan Assessment/Plan Right complex pleural effusion septated, simple left pleural effusion Pneumonia Fever Leukocytosis History of tobacco and currently use marijuana Patient is a 37-year-old male with a complex right pleural effusion. And a simple left pleural effusion. The right chest has a small amount of fluid in it and currently he does not seem to be too symptomatic from it. He did just undergo bone marrow biopsy. White blood cell count is down to 75,000 today awaiting bone marrow results. Patient with thoracentesis today performed by Dr. Sharma which postoperative film appears that there is resolution of the pleural fluid. No surgical intervention at this time. We'll continue to follow. Clinical Quality Measures DVT/VTE Risk/Contraindication: Risk Factor Score Per Nursin RFS Level Per Nursing on Admit: 3=High MICHAEL CHRISTIE DO Feb 15, 2018 16:33
[2018-02-16 00:11] VITALS: BP 130/75
[2018-02-16] MEDS: HYDROcodone/APAP 7.5 MG/325 MG (LORTAB, LORCET PLUS) TABLET PO PRN ×4 (01:39→21:13)
[2018-02-16] MEDS: ACETAMINOPHEN 500 MG TAB (TYLENOL) PO PRN (03:58)
[2018-02-16 04:13] VITALS: BP 131/72
--- NOTE | 2018-02-16 05:35 | Pulmonary Progress Note ---
Subjective Time Seen by Provider: 12:22 Subjective/Events-last exam c/o sob Sepsis Event Evaluation Height, Weight, BMI Height: 6'1.00" Weight: 239lbs. 1.0oz. 108.820822iv; 31.3 BMI Method:Stated Exam Exam Vital Signs Date Time Temp Pulse Resp B/P (MAP) Pulse Ox O2 Delivery O2 Flow Rate FiO2 02/16/18 04:13 98.4 108 20 131/72 (91) 93 Room Air 02/16/18 00:11 98.4 115 18 130/75 (93) 94 Room Air 02/15/18 20:50 Room Air 02/15/18 20:00 100.5 123 18 117/70 (86) 96 Room Air 02/15/18 19:21 94 Room Air 02/15/18 16:06 99.9 114 18 130/66 (87) 95 Room Air 02/15/18 15:40 95 Room Air 02/15/18 12:21 98.4 117 18 113/71 (85) 96 Room Air 02/15/18 12:12 94 Room Air 02/15/18 09:00 Room Air 02/15/18 08:55 99.0 111 20 131/73 (92) 95 Room Air 02/15/18 07:48 110 95 02/15/18 07:43 95 Room Air I & O 02/16/18 07:00 Intake Total 2644 ml Output Total 350 ml Balance 2294 ml Height & Weight Height: 6'1.00" Weight: 239lbs. 1.0oz. 108.281169ak; 31.3 BMI Method:Stated General Appearance: No Apparent Distress, Anxious HEENT: PERRL/EOMI, TMs Normal Neck: Full Range of Motion, Non Tender, Supple Respiratory: Decreased Breath Sounds Cardiovascular: Regular Rate, Rhythm, No Edema, No Gallop Capillary Refill: Less Than 3 Seconds Gastrointestinal: non tender, soft, no organomegaly, no pulsatile mass Extremity: Normal Capillary Refill Neurologic/Psychiatric: Alert, Oriented x3 Skin: Normal Color, Warm/Dry Results Lab Laboratory Tests 02/14/18 07:20 02/15/18 04:25 Assessment/Plan Assessment/Plan Sepsis with Pneumonia with- community acquired -- persistent fever leukocytosis Complicated parapneumonic loculated small to moderate right pleural effusion r/ o empyema - exudative -S/P Thoracentesis -Repeat US chest s/p repeat thoracentesis -vancomycin and Merrem extremely high leukocytosis s/p bone marrow bx -r/o malignancy Hyponatremia -MOnitor Tobacco hx Hx of alcohol and drug use Anemia LABS and radiology pending STEVE WATERS DO Feb 16, 2018 05:35
[2018-02-16] MEDS: MEROPENEM 500 MG in NS (IVPB) 50 ML IV SCH ×4 (05:36→23:38)
[2018-02-16 05:47] LABS: BASOPHILS # (AUTO) 0.6 10^3/uL (0.0-0.1); BASOPHILS % (AUTO) 1 % (0-10); EOSINOPHILS # (AUTO) 0.2 10^3/uL (0.0-0.3); EOSINOPHILS % (AUTO) 0 % (0-10); HEMATOCRIT 34 % (40-54); LYMPHOCYTES # (AUTO) 4.7 X 10^3 (1.0-4.0); LYMPHOCYTES % (AUTO) 7 % (12-44); MEAN CORPUSCULAR HEMOGLOBIN 30 PG (25-34); MEAN CORPUSCULAR HGB CONC 32 G/DL (32-36); MEAN CORPUSCULAR VOLUME 94 FL (80-99); MEAN PLATELET VOLUME 9.8 FL (7.4-10.4); MONOCYTES # (AUTO) 3.7 X 10^3 (0.0-1.0); MONOCYTES % (AUTO) 5 % (0-12); NEUTROPHILS # (AUTO) 63.5 X 10^3 (1.8-7.8); NEUTROPHILS % (AUTO) 87 % (42-75); PLATELET COUNT 356 10^3/uL (130-400); RED BLOOD COUNT 3.65 10^6/uL (4.35-5.85); RED CELL DISTRIBUTION WIDTH 14.8 % (10.0-14.5)
[2018-02-16 06:09] LABS: BUN/CREATININE RATIO 8; CARBON DIOXIDE 25 MMOL/L (21-32); CHLORIDE 103 MMOL/L (98-107); CREATININE SERUM 0.59 MG/DL (0.60-1.30); GFR ESTIMATED > 60; GLUCOSE 98 MG/DL (70-105); PHOSPHORUS 3.8 MG/DL (2.3-4.7); POTASSIUM 4.2 MMOL/L (3.6-5.0); SODIUM 138 MMOL/L (135-145)
[2018-02-16 06:16] LABS: WHITE BLOOD COUNT 72.7 10^3/uL (4.3-11.0)
[2018-02-16] MEDS: RT-ALBUTEROL/IPRATROPIUM 3 ML (DUONEB) VIAL INH SCH ×4 (06:53→19:13)
[2018-02-16] MEDS: NS IV 1000 ML 1,000 ML IV SCH (08:23)
[2018-02-16] MEDS: VANCOMYCIN 1,750 MG/NS 500 ML IVPB IV SCH ×6 (08:23→23:38)
[2018-02-16] MEDS: PANTOPRAZOLE 40 MG (PROTONIX) TAB PO SCH ×2 (08:23→21:13)
[2018-02-16] MEDS: GABAPENTIN 400 MG (NEURONTIN) CAP PO SCH ×4 (08:24→21:13)
[2018-02-16 08:44] VITALS: BP 126/80
--- NOTE | 2018-02-16 09:46 | Diagnostic Imaging Report ---
INDICATION: Pleural effusion Ultrasound of the chest performed. There are small bilateral pleural effusions left greater than right. There is no overt loculation on these images. IMPRESSION: Bilateral pleural effusions left greater than the right with no overt loculation. Dictated by: Dictated on workstation # [id number]
--- NOTE | 2018-02-16 09:48 | Diagnostic Imaging Report ---
INDICATION: Pneumonia and pleural effusion PA chest obtained at 4:08 hours am, and compared to 02/15/2018. Cardiomegaly is again noted. There is mild central vascular prominence. There is patchy infiltrate in both lung bases appearing similar to the prior study. There is a minimal left pleural effusion. Right-sided PICC line is unchanged. Postop changes in right medial clavicle unchanged. IMPRESSION: Cardiomegaly with unchanged bibasilar infiltrates and small left pleural effusion. Dictated by: Dictated on workstation # [id number]
--- NOTE | 2018-02-16 11:15 | Progress Note (SOAP) ---
Subjective Subjective/Events-last exam Tmax 100.5. WBC slight decrease. Feeling better. Review of Systems Date Seen by Provider: Feb 16, 2018 Time Seen by Provider: 10:05 Objective Exam Last Set of Vital Signs Vital Signs Date Time Temp Pulse Resp B/P (MAP) Pulse Ox O2 Delivery O2 Flow Rate FiO2 02/16/18 10:37 96 Room Air 02/16/18 08:44 96.1 114 18 126/80 (95) 02/12/18 13:00 2.00 02/12/18 00:30 32 Capillary Refill : Less Than 3 Seconds I&O Intake and Output 02/16/18 00:00 Intake Total 2844 ml Output Total 350 ml Balance 2494 ml Intake Oral 2694 ml IV Total 150 ml Output Urine Total 350 ml # Voids 14 # Bowel Movements 1 General: Alert, No Acute Distress Lungs: Clear to Auscultation, Normal Air Movement Heart: Regular Rate, No Murmurs Neuro: Normal Speech Psych/Mental Status: Mental Status NL Results/Procedures Lab Laboratory Tests 02/16/18 05:33: White Blood Count 72.7*H, Red Blood Count 3.65L, Hemoglobin 11.0L, Hematocrit 34L, Mean Corpuscular Volume 94, Mean Corpuscular Hemoglobin 30, Mean Corpuscular Hemoglobin Concent 32, Red Cell Distribution Width 14.8H, Platelet Count 356, Mean Platelet Volume 9.8, Neutrophils (%) (Auto) 87H, Lymphocytes (% ) (Auto) 7L, Monocytes (%) (Auto) 5, Eosinophils (%) (Auto) 0, Basophils (%) ( Auto) 1, Neutrophils # (Auto) 63.5H, Lymphocytes # (Auto) 4.7H, Monocytes # ( Auto) 3.7H, Eosinophils # (Auto) 0.2, Basophils # (Auto) 0.6H, Sodium Level 138 , Potassium Level 4.2, Chloride Level 103, Carbon Dioxide Level 25, Anion Gap 10 , Blood Urea Nitrogen 5L, Creatinine 0.59L, Estimat Glomerular Filtration Rate > 60, BUN/Creatinine Ratio 8, Glucose Level 98, Calcium Level 8.0L, Phosphorus Level 3.8, Magnesium Level 1.8 Microbiology 02/11/18 Blood Culture - Preliminary, Resulted No growth 02/15/18 Gram Stain - Final, Resulted 02/15/18 Body Fluid Culture, Resulted Pending 02/11/18 Influenza Types A,B Antigen (JUANA) - Final, Complete 02/11/18 Urine Culture - Final, Complete See Report 02/12/18 Anaerobic Culture - Preliminary, Resulted No anaerobes isolated 02/12/18 Fungal Culture - Preliminary, Resulted No growth Radiology 02/11 CXR: IMPRESSION: 1. Nonspecific right greater than left bibasilar airspace consolidation with probable right-sided pleural effusion. 2. Unchanged cardiomegaly. 02/[address]: CT chest: 1. Small to moderate right pleural effusion of uncertain exact causative etiology. Consider pleural fluid analysis. 2. Nonspecific right lower lobe airspace consolidation which does appear to be along the bronchovascular distribution and somewhat wedge-shaped. 3. Nondiagnostic assessment for pulmonary embolus. Enlarged main pulmonary artery diameter suggesting pulmonary artery hypertension. 4. Prominent right paratracheal, AP window and subcarinal lymph nodes which potentially could relate to the process associated with the right pleural effusion and right lower lobe airspace consolidation. This does increase concern for possibility of infection or neoplasm. 5. Nonspecific stranding of the mediastinal fat which is abnormal. 6. No cardiomegaly. No pericardial effusion. This does appear fairly similar to July 06, 2012. Assessment/Plan Assessment/Plan (1) Sepsis Status: Acute Assessment & Plan: Febrile, leukocytosis and tachycardia with suspected pneumonia. No hypotension or lactic acidosis, no end organ dysfunction. Antibiotics as noted under pneumonia. Qualifiers: Qualified Codes: A41.9 - Sepsis, unspecified organism (2) Pneumonia Status: Acute Assessment & Plan: Meropenem and vancomycin 02/13- remains febrile, no growth yet from pleural fluid, continue abx, US pending per Dr. Sharma to look for encapsulated infection. 02/14- persistent fever and worsening leukocytosis, US with loculated fluid, possible surgery today 02/15- held off on decortication due to concern for malignancy as possible cause more than infection. Repeat thoracentesis done today. Remains febrile, continue meropenem and vancomycin. No growth from cultures to date. 02/16- fever curve decreased, continue vancomycin and meropenem, no growth from cultures. (3) Pleural effusion Status: Acute Assessment & Plan: Pulmonology consulted, thoracentesis done this morning, will follow results of fluid analysis. 02/13- exudative by all 3 Light's criteria, still suspect infection, but differential for exudative is large, if not improving with abx, consider malignancy as noted with leukocytosis. 02/15 repeat thoracentesis (4) Leukocytosis Status: Acute Assessment & Plan: Massive, concerning for malignancy, but without blasts and overall consistent with infectious etiology per Hematology. Appreciate recommendations. BCR/ABL negative. Bone marrow biopsy results pending. (5) Chronic pain Status: Chronic Assessment & Plan: Resume home gabapentin Qualifiers: Qualified Codes: G89.4 - Chronic pain syndrome (6) Depression Status: Chronic Assessment & Plan: Resume home med (7) Anxiety about health Status: Acute Assessment & Plan: Will try hydroxyzine prn, if still feeling significantly anxious, consider low dose lorazepam (8) DVT prophylaxis Status: Acute Assessment & Plan: Enoxaparin- on hold 02/14 for possible procedure, defer to Pulm for resumption Clinical Quality Measures DVT/VTE Risk/Contraindication: Risk Factor Score Per Nursin RFS Level Per Nursing on Admit: 3=High SATYA SMITH MD Feb 16, 2018 11:15 am
[2018-02-16 12:00] VITALS: BP 124/74
--- NOTE | 2018-02-16 14:51 | Progress Note ---
Subjective Date Seen by Provider: Feb 16, 2018 Time Seen by Provider: 14:47 Subjective/Events-last exam still with cough. no new complaints. having low grade fever on and off. no abdominal pain. denies fever sweats chills shortness of breath or chest pain at this time. WBC 72.7 u/s today Bilateral pleural effusions left greater than the right with no overt loculation. Chest x ray shows small left pleural effusion. Objective Exam Vital Signs Date Time Temp Pulse Resp B/P (MAP) Pulse Ox O2 Delivery O2 Flow Rate FiO2 02/16/18 12:00 98.8 99 18 124/74 (91) 95 Room Air 02/16/18 10:37 96 Room Air 02/16/18 09:29 Room Air 02/16/18 08:44 96.1 114 18 126/80 (95) 97 Room Air 02/16/18 06:53 96 Room Air 02/16/18 04:13 98.4 108 20 131/72 (91) 93 Room Air 02/16/18 00:11 98.4 115 18 130/75 (93) 94 Room Air 02/15/18 20:50 Room Air 02/15/18 20:00 100.5 123 18 117/70 (86) 96 Room Air 02/15/18 19:21 94 Room Air 02/15/18 16:06 99.9 114 18 130/66 (87) 95 Room Air 02/15/18 15:40 95 Room Air I & O 02/16/18 07:00 Intake Total 2994 ml Output Total 350 ml Balance 2644 ml Capillary Refill : Less Than 3 Seconds General Appearance: No Apparent Distress HEENT: PERRL/EOMI, TMs Normal Neck: Full Range of Motion, Non Tender, Supple Respiratory: No Accessory Muscle Use, No Respiratory Distress, Decreased Breath Sounds Cardiovascular: Regular Rate, Rhythm, No Edema, No Gallop Gastrointestinal: non tender, soft, no organomegaly, no pulsatile mass Extremity: Normal Capillary Refill, Other (left aka) Neurologic/Psychiatric: Alert, Oriented x3 Skin: Normal Color, Warm/Dry Results Lab Laboratory Tests 02/16/18 05:33: White Blood Count 72.7*H, Red Blood Count 3.65L, Hemoglobin 11.0L, Hematocrit 34L, Mean Corpuscular Volume 94, Mean Corpuscular Hemoglobin 30, Mean Corpuscular Hemoglobin Concent 32, Red Cell Distribution Width 14.8H, Platelet Count 356, Mean Platelet Volume 9.8, Neutrophils (%) (Auto) 87H, Lymphocytes (% ) (Auto) 7L, Monocytes (%) (Auto) 5, Eosinophils (%) (Auto) 0, Basophils (%) ( Auto) 1, Neutrophils # (Auto) 63.5H, Lymphocytes # (Auto) 4.7H, Monocytes # ( Auto) 3.7H, Eosinophils # (Auto) 0.2, Basophils # (Auto) 0.6H, Sodium Level 138 , Potassium Level 4.2, Chloride Level 103, Carbon Dioxide Level 25, Anion Gap 10 , Blood Urea Nitrogen 5L, Creatinine 0.59L, Estimat Glomerular Filtration Rate > 60, BUN/Creatinine Ratio 8, Glucose Level 98, Calcium Level 8.0L, Phosphorus Level 3.8, Magnesium Level 1.8 Microbiology 02/11/18 Blood Culture - Preliminary, Resulted No growth 02/15/18 Gram Stain - Final, Resulted 02/15/18 Body Fluid Culture - Preliminary, Resulted No growth 02/11/18 Influenza Types A,B Antigen (JUANA) - Final, Complete 02/11/18 Urine Culture - Final, Complete See Report 02/12/18 Anaerobic Culture - Final, Resulted No anaerobes isolated 02/12/18 Fungal Culture - Preliminary, Resulted No growth Assessment/Plan Assessment/Plan Assessment/Plan Right complex pleural effusion septated, simple left pleural effusion, right side minimal with no loculation really visualized at this time. Pneumonia Fever Leukocytosis History of tobacco and currently use marijuana Patient is a 37-year-old male with a complex right pleural effusion that appears mostly drained at this time, And a simple left pleural effusion. The right chest has a small amount of fluid in it and currently he does not seem to be too symptomatic from it. He did just undergo bone marrow biopsy awaiting final pathology White blood cell count is down to 72,700 today awaiting bone marrow results. Patient with thoracentesis yesterday performed by Dr. Sharma which x rays appears that there is resolution of the pleural fluid. No surgical intervention at this time. Will continue to follow. Clinical Quality Measures DVT/VTE Risk/Contraindication: Risk Factor Score Per Nursin RFS Level Per Nursing on Admit: 3=High MICHAEL CHRISTIE DO Feb 16, 2018 14:50
[2018-02-16 16:30] VITALS: BP 124/79
--- NOTE | 2018-02-16 18:16 | Progress Note-Standard ---
Standard Progress Note Progress Notes/Assess & Plan Date Seen by Provider: Feb 16, 2018 Time Seen by Provider: 18:07 Progress/Assessment & Plan 37-year-old male admitted with febrile illness, significant leukocytosis and neutrophilia as well as right complex pleural effusion. Patient is on broad- spectrum antibiotics with meropenem and vancomycin completing 4 days. Leukocytosis is trending down the last 2 days. Still having occasional temperature spikes. Clinically he feels better and denied shortness of breath. Status post right thoracentesis 2 with exudate but all cultures negative so far. BCR ABL by FISH negative ruling out diagnosis of CML. Status post bone marrow aspiration and biopsy with pathology as well as JAK2 pending. Clinically this is most consistent with a leukemoid reaction due to an infectious process. Cannot rule out other MPD or overlap syndrome like CMML. Await final pathology report. Continue broad-spectrum antibiotic coverage for 10-14 days. I am out of town until 02/23/2018. is covering for any problems on 02/17/18 and on 02/20/18 and 02/21/18. If the patient is discharged prior to my return, please schedule at 2-3 week follow-up appointment with me to review final bone marrow reports including cytogenetics. VERNA REID Feb 16, 2018 18:16
[2018-02-16 20:00] VITALS: BP 140/78
[2018-02-16] MEDS: hydrOXYzine (VISTARIL) 25 MG CAP PO PRN (23:38)
[2018-02-17 00:34] VITALS: BP 140/68
[2018-02-17 04:03] VITALS: BP 132/74
[2018-02-17 06:03] LABS: HEMOGLOBIN 11.2 G/DL (13.3-17.7); MEAN PLATELET VOLUME 9.7 FL (7.4-10.4); RED BLOOD COUNT 3.57 10^6/uL (4.35-5.85); RED CELL DISTRIBUTION WIDTH 14.6 % (10.0-14.5)
[2018-02-17 06:06] LABS: WHITE BLOOD COUNT 72.8 10^3/uL (4.3-11.0)
[2018-02-17] MEDS: MEROPENEM 500 MG in NS (IVPB) 50 ML IV SCH ×3 (06:07→17:42)
[2018-02-17] MEDS: HYDROcodone/APAP 7.5 MG/325 MG (LORTAB, LORCET PLUS) TABLET PO PRN ×3 (06:07→18:16)
[2018-02-17 06:26] LABS: BUN/CREATININE RATIO 10; CALCIUM 8.2 MG/DL (8.5-10.1); CARBON DIOXIDE 28 MMOL/L (21-32); CHLORIDE 105 MMOL/L (98-107); GFR ESTIMATED > 60; GLUCOSE 89 MG/DL (70-105); MAGNESIUM 1.7 MG/DL (1.8-2.4); PHOSPHORUS 3.7 MG/DL (2.3-4.7); POTASSIUM 4.6 MMOL/L (3.6-5.0); SODIUM 138 MMOL/L (135-145)
[2018-02-17] MEDS: RT-ALBUTEROL/IPRATROPIUM 3 ML (DUONEB) VIAL INH SCH ×3 (06:40→14:00)
[2018-02-17] MEDS ORDERED: TROUGH ORDER-PHARMACY XX ONE (07:00)
[2018-02-17] MEDS: GABAPENTIN 400 MG (NEURONTIN) CAP PO SCH ×4 (08:11→20:01)
[2018-02-17] MEDS: PANTOPRAZOLE 40 MG (PROTONIX) TAB PO SCH ×2 (08:11→20:01)
[2018-02-17] MEDS: VANCOMYCIN 1,750 MG/NS 500 ML IVPB IV SCH ×2 (08:11)
[2018-02-17 08:23] VITALS: BP 135/76
[2018-02-17] MEDS: NS IV 1000 ML 1,000 ML IV SCH (08:42)
--- NOTE | 2018-02-17 09:00 | Pulmonary Progress Note ---
Subjective Time Seen by Provider: 09:00 Subjective/Events-last exam no complications noted Sepsis Event Evaluation Height, Weight, BMI Height: 6'1.00" Weight: 238lbs. 1.0oz. 107.564301bt; 31.3 BMI Method:Stated Exam Exam Vital Signs Date Time Temp Pulse Resp B/P (MAP) Pulse Ox O2 Delivery O2 Flow Rate FiO2 02/17/18 08:25 Room Air 02/17/18 08:23 99.2 110 16 135/76 (95) 95 Room Air 02/17/18 06:38 97 Room Air 02/17/18 04:03 99.0 106 18 132/74 (93) 96 Room Air 02/17/18 00:34 99.3 104 18 140/68 (92) 96 Room Air 02/16/18 20:05 Room Air 02/16/18 20:00 99.5 94 18 140/78 (98) 95 Room Air 02/16/18 19:13 94 Room Air 02/16/18 16:30 99.7 97 16 124/79 (94) 97 Room Air 02/16/18 15:14 96 Room Air 02/16/18 12:00 98.8 99 18 124/74 (91) 95 Room Air 02/16/18 10:37 96 Room Air 02/16/18 09:29 Room Air I & O 02/17/18 07:00 Intake Total 4840.0 ml Output Total 1300 ml Balance 3540.0 ml Height & Weight Height: 6'1.00" Weight: 238lbs. 1.0oz. 107.290910rj; 31.3 BMI Method:Stated General Appearance: No Apparent Distress HEENT: PERRL/EOMI, TMs Normal Neck: Full Range of Motion, Non Tender, Supple Respiratory: No Accessory Muscle Use, No Respiratory Distress, Decreased Breath Sounds Cardiovascular: Regular Rate, Rhythm, No Edema, No Gallop Capillary Refill: Less Than 3 Seconds Gastrointestinal: non tender, soft, no organomegaly, no pulsatile mass Extremity: Normal Capillary Refill, Other (left aka) Neurologic/Psychiatric: Alert, Oriented x3 Skin: Normal Color, Warm/Dry Results Lab Laboratory Tests 02/16/18 05:33 02/17/18 05:45 Assessment/Plan Assessment/Plan Sepsis with Pneumonia with- community acquired -- persistent fever leukocytosis Complicated parapneumonic loculated small to moderate right pleural effusion r/ o empyema - exudative -S/P Thoracentesis -Repeat US chest reviewed and shows only small bilateral pleural effusion with no obvious loculations. -Renae cultures are negative -Oncology workup is negative thus far -vancomycin and Merrem extremely high leukocytosis s/p bone marrow bx -r/o malignancy Tobacco hx Hx of alcohol and drug use Anemia STEVE WATERS DO Feb 17, 2018 09:00
--- NOTE | 2018-02-17 10:10 | Diagnostic Imaging Report ---
INDICATION: Shortness of breath and pneumonia. TIME OF EXAM: 10:10 a.m. Correlation is made with prior study from one day earlier. The heart is enlarged and stable. Right upper extremity PICC line remains in place with tip overlying the SVC. There is some residual infiltrate in the right base. Left base is somewhat obscured by the enlarged heart. There appears to be trace pleural fluid bilaterally. Mid and upper lung cabrera are clear. No pneumothorax is seen. IMPRESSION: Mild residual infiltrate or atelectasis in the right base and trace bilateral pleural effusions. Dictated by: Dictated on workstation # [id number]
[2018-02-17 12:15] VITALS: BP 132/75
--- NOTE | 2018-02-17 14:23 | Progress Note ---
Subjective Date Seen by Provider: Feb 17, 2018 Time Seen by Provider: 14:20 Subjective/Events-last exam cough improved. not having any shortness of breath. no new complaints. chest x ray small b/l pleural effusions. wbc 72.8 Objective Exam Vital Signs Date Time Temp Pulse Resp B/P (MAP) Pulse Ox O2 Delivery O2 Flow Rate FiO2 02/17/18 12:15 99.0 94 16 132/75 (94) 95 Room Air 02/17/18 10:26 95 Room Air 02/17/18 08:25 Room Air 02/17/18 08:23 99.2 110 16 135/76 (95) 95 Room Air 02/17/18 06:38 97 Room Air 02/17/18 04:03 99.0 106 18 132/74 (93) 96 Room Air 02/17/18 00:34 99.3 104 18 140/68 (92) 96 Room Air 02/16/18 20:05 Room Air 02/16/18 20:00 99.5 94 18 140/78 (98) 95 Room Air 02/16/18 19:13 94 Room Air 02/16/18 16:30 99.7 97 16 124/79 (94) 97 Room Air 02/16/18 15:14 96 Room Air I & O 02/17/18 07:00 Intake Total 4840.0 ml Output Total 1300 ml Balance 3540.0 ml Capillary Refill : Less Than 3 Seconds General Appearance: No Apparent Distress HEENT: PERRL/EOMI, TMs Normal Neck: Full Range of Motion, Non Tender, Supple Respiratory: No Accessory Muscle Use, No Respiratory Distress, Decreased Breath Sounds Cardiovascular: Regular Rate, Rhythm, No Edema, No Gallop Gastrointestinal: non tender, soft, no organomegaly, no pulsatile mass Extremity: Normal Capillary Refill, Other (left aka) Neurologic/Psychiatric: Alert, Oriented x3 Skin: Normal Color, Warm/Dry Results Lab Laboratory Tests 02/17/18 05:45: White Blood Count 72.8*H, Red Blood Count 3.57L, Hemoglobin 11.2L, Hematocrit 34L, Mean Corpuscular Volume 95, Mean Corpuscular Hemoglobin 31, Mean Corpuscular Hemoglobin Concent 33, Red Cell Distribution Width 14.6H, Platelet Count 385, Mean Platelet Volume 9.7, Sodium Level 138, Potassium Level 4.6, Chloride Level 105, Carbon Dioxide Level 28, Anion Gap 5, Blood Urea Nitrogen 6L , Creatinine 0.60, Estimat Glomerular Filtration Rate > 60, BUN/Creatinine Ratio 10, Glucose Level 89, Calcium Level 8.2L, Phosphorus Level 3.7, Magnesium Level 1.7L 02/17/18 07:05: Vancomycin Level Trough 10.8 Microbiology 02/11/18 Blood Culture - Preliminary, Resulted No growth 02/15/18 Gram Stain - Final, Resulted 02/15/18 Body Fluid Culture - Preliminary, Resulted No growth 02/11/18 Influenza Types A,B Antigen (JUANA) - Final, Complete 02/11/18 Urine Culture - Final, Complete See Report 02/12/18 Anaerobic Culture - Final, Resulted No anaerobes isolated 02/12/18 Fungal Culture - Preliminary, Resulted No growth Assessment/Plan Assessment/Plan Assessment/Plan Right complex pleural effusion septated, simple left pleural effusion, right/ left side minimal minimal effusions Pneumonia Fever Leukocytosis History of tobacco and currently use marijuana Patient is a 37-year-old male with a complex right pleural effusion that appears mostly drained at this time, And a simple left pleural effusion. The right chest has a small amount of fluid in it and currently he does not seem to be too symptomatic from it. He did just undergo bone marrow biopsy awaiting final pathology White blood cell count is 72,800 today awaiting bone marrow results. I do not feel any surgical intervention at this time is warranted. Will await final bone marrow. Clinical Quality Measures DVT/VTE Risk/Contraindication: Risk Factor Score Per Nursin RFS Level Per Nursing on Admit: 3=High MICHAEL CHRISTIE DO Feb 17, 2018 14:23
[2018-02-17] MEDS ORDERED: PATIENT MAY USE OWN MED,SINGLE MED PO SCH (15:00)
--- NOTE | 2018-02-17 15:05 | Progress Note (SOAP) ---
Subjective Subjective/Events-last exam Afebrile. Continuing to feel improved. Review of Systems Date Seen by Provider: Feb 17, 2018 Time Seen by Provider: 10:48 Objective Exam Last Set of Vital Signs Vital Signs Date Time Temp Pulse Resp B/P (MAP) Pulse Ox O2 Delivery O2 Flow Rate FiO2 02/17/18 12:15 99.0 94 16 132/75 (94) 95 Room Air 02/12/18 13:00 2.00 02/12/18 00:30 32 Capillary Refill : Less Than 3 Seconds I&O Intake and Output 02/17/18 00:00 Intake Total 4940.0 ml Output Total 700 ml Balance 4240.0 ml Intake Oral 2705 ml IV Total 2235.0 ml Output Urine Total 700 ml # Voids 6 # Bowel Movements 1 General: Alert, No Acute Distress Lungs: Clear to Auscultation, Normal Air Movement Heart: Regular Rate, No Murmurs Psych/Mental Status: Mental Status NL Results/Procedures Lab Laboratory Tests 02/17/18 05:45: White Blood Count 72.8*H, Red Blood Count 3.57L, Hemoglobin 11.2L, Hematocrit 34L, Mean Corpuscular Volume 95, Mean Corpuscular Hemoglobin 31, Mean Corpuscular Hemoglobin Concent 33, Red Cell Distribution Width 14.6H, Platelet Count 385, Mean Platelet Volume 9.7, Sodium Level 138, Potassium Level 4.6, Chloride Level 105, Carbon Dioxide Level 28, Anion Gap 5, Blood Urea Nitrogen 6L , Creatinine 0.60, Estimat Glomerular Filtration Rate > 60, BUN/Creatinine Ratio 10, Glucose Level 89, Calcium Level 8.2L, Phosphorus Level 3.7, Magnesium Level 1.7L 02/17/18 07:05: Vancomycin Level Trough 10.8 Microbiology 02/11/18 Blood Culture - Preliminary, Resulted No growth 02/15/18 Gram Stain - Final, Resulted 02/15/18 Body Fluid Culture - Preliminary, Resulted No growth 02/11/18 Influenza Types A,B Antigen (JUANA) - Final, Complete 02/11/18 Urine Culture - Final, Complete See Report 02/12/18 Anaerobic Culture - Final, Resulted No anaerobes isolated 02/12/18 Fungal Culture - Preliminary, Resulted No growth Radiology 02/11 CXR: IMPRESSION: 1. Nonspecific right greater than left bibasilar airspace consolidation with probable right-sided pleural effusion. 2. Unchanged cardiomegaly. 02/[address]: CT chest: 1. Small to moderate right pleural effusion of uncertain exact causative etiology. Consider pleural fluid analysis. 2. Nonspecific right lower lobe airspace consolidation which does appear to be along the bronchovascular distribution and somewhat wedge-shaped. 3. Nondiagnostic assessment for pulmonary embolus. Enlarged main pulmonary artery diameter suggesting pulmonary artery hypertension. 4. Prominent right paratracheal, AP window and subcarinal lymph nodes which potentially could relate to the process associated with the right pleural effusion and right lower lobe airspace consolidation. This does increase concern for possibility of infection or neoplasm. 5. Nonspecific stranding of the mediastinal fat which is abnormal. 6. No cardiomegaly. No pericardial effusion. This does appear fairly similar to July 06, 2012. Assessment/Plan Assessment/Plan (1) Sepsis Status: Acute Assessment & Plan: Febrile, leukocytosis and tachycardia with suspected pneumonia on admission. No hypotension or lactic acidosis, no end organ dysfunction. Antibiotics as noted under pneumonia. Qualifiers: Qualified Codes: A41.9 - Sepsis, unspecified organism (2) Pneumonia Status: Acute Assessment & Plan: Meropenem and vancomycin 02/13- remains febrile, no growth yet from pleural fluid, continue abx, US pending per Dr. Sharma to look for encapsulated infection. 02/14- persistent fever and worsening leukocytosis, US with loculated fluid, possible surgery today 02/15- held off on decortication due to concern for malignancy as possible cause more than infection. Repeat thoracentesis done today. Remains febrile, continue meropenem and vancomycin. No growth from cultures to date. 02/16- fever curve decreased, continue vancomycin and meropenem, no growth from cultures. 02/17 afebrile, no growth from cultures. Continue vanc and meropenem, anticipate need for IV antibiotics for quite some time due to severity. (3) Pleural effusion Status: Acute Assessment & Plan: Pulmonology consulted, thoracentesis done this morning, will follow results of fluid analysis. 02/13- exudative by all 3 Light's criteria, still suspect infection, but differential for exudative is large, if not improving with abx, consider malignancy as noted with leukocytosis. 02/15 repeat thoracentesis 02/17 repeat CXR ordered by Dr. Sharma to check whether fluid reaccumulating (4) Leukocytosis Status: Acute Assessment & Plan: Massive, concerning for malignancy, but without blasts and overall consistent with infectious etiology per Hematology. Appreciate recommendations. BCR/ABL negative. Bone marrow biopsy results pending. 02/17 prelim bone marrow tests negative for malignancy, will follow up with Dr. Diamond outpatient for final results. WBC stable today at 72. (5) Chronic pain Status: Chronic Assessment & Plan: Resume home gabapentin Qualifiers: Qualified Codes: G89.4 - Chronic pain syndrome (6) Depression Status: Chronic Assessment & Plan: Resume home med (7) Anxiety about health Status: Acute Assessment & Plan: Will try hydroxyzine prn, if still feeling significantly anxious, consider low dose lorazepam (8) DVT prophylaxis Status: Acute Assessment & Plan: Enoxaparin- on hold 02/14 for possible procedure, defer to Pulm for resumption Clinical Quality Measures DVT/VTE Risk/Contraindication: Risk Factor Score Per Nursin RFS Level Per Nursing on Admit: 3=High SATYA SMITH MD Feb 17, 2018 3:05 pm
[2018-02-17 16:00] VITALS: BP 126/74
--- NOTE | 2018-02-17 17:04 | Progress Note-Standard ---
Standard Progress Note Progress Notes/Assess & Plan Date Seen by Provider: Feb 17, 2018 Time Seen by Provider: 16:57 Progress/Assessment & Plan 37-year-old male admitted with febrile illness, significant leukocytosis and neutrophilia as well as right complex pleural effusion. Patient is on broad- spectrum antibiotics with meropenem and vancomycin completing 5 days. Status post right thoracentesis 2 with exudate but all cultures negative so far. Leukocytosis is stable in the 70s. Patient has been afebrile in the last 24 hours and feels the best he has felt since the beginning of his hospitalization. -BCR ABL by FISH negative ruling out diagnosis of CML. -Status post bone marrow aspiration and biopsy with pathology as well as JAK2 pending. -Initial pathologic review is inconclusive. Morphologic analysis shows a significant amount of eosinophilia and dyspoiesis, as well as increased numbers of more mature myeloid precursors per verbal report talking with pathology. Still highly suspicious for a myeloproliferative disorder or overlap syndrome like CMML. It is unlikely that patient will have a diagnosis before he is discharged. -Continue broad-spectrum antibiotic coverage for 10-14 days, as there is still possibility of reactive eosinophilia. -Start hydroxyurea 1g PO daily in anticipation of MPD diagnosis. -Please schedule at 2-3 week follow-up appointment with Dr. Diamond to review final bone marrow reports including cytogenetics. JANNET ROSA MD Feb 17, 2018 17:04
[2018-02-17] MEDS: ENOXAPARIN 40 MG/0.4 ML (LOVENOX) SYR SC SCH (17:42)
[2018-02-17 20:00] VITALS: BP 140/79
[2018-02-18] VITALS (7 sets, daily range): BP systolic 118–139; BP diastolic 73–85
[2018-02-18] MEDS: MEROPENEM 500 MG in NS (IVPB) 50 ML IV SCH ×5 (00:17→23:34)
[2018-02-18] MEDS: HYDROcodone/APAP 7.5 MG/325 MG (LORTAB, LORCET PLUS) TABLET PO PRN ×4 (00:18→18:30)
[2018-02-18 06:08] LABS: HEMOGLOBIN 10.9 G/DL (13.3-17.7); MEAN PLATELET VOLUME 9.3 FL (7.4-10.4); RED BLOOD COUNT 3.56 10^6/uL (4.35-5.85); RED CELL DISTRIBUTION WIDTH 14.7 % (10.0-14.5)
[2018-02-18 06:12] LABS: WHITE BLOOD COUNT 68.8 10^3/uL (4.3-11.0)
[2018-02-18 06:26] LABS: BUN/CREATININE RATIO 12; CALCIUM 8.3 MG/DL (8.5-10.1); CARBON DIOXIDE 26 MMOL/L (21-32); CHLORIDE 104 MMOL/L (98-107); CREATININE SERUM 0.57 MG/DL (0.60-1.30); GFR ESTIMATED > 60; GLUCOSE 88 MG/DL (70-105); MAGNESIUM 1.9 MG/DL (1.8-2.4); PHOSPHORUS 4.2 MG/DL (2.3-4.7); POTASSIUM 4.4 MMOL/L (3.6-5.0); SODIUM 138 MMOL/L (135-145)
--- NOTE | 2018-02-18 07:15 | Pulmonary Progress Note ---
Subjective Time Seen by Provider: 12:33 Subjective/Events-last exam No complications noted. Sepsis Event Evaluation Height, Weight, BMI Height: 6'1.00" Weight: 250lbs. 6.0oz. 113.407808pa; 31.3 BMI Method:Stated Exam Exam Vital Signs Date Time Temp Pulse Resp B/P (MAP) Pulse Ox O2 Delivery O2 Flow Rate FiO2 02/18/18 05:00 98.3 96 18 139/77 (97) 97 Room Air 02/18/18 00:00 98.0 107 20 132/77 (95) 98 Room Air 02/17/18 20:00 99.0 103 16 140/79 (99) 96 Room Air 02/17/18 19:37 97 Room Air 02/17/18 16:00 98.6 94 16 126/74 (91) 96 Room Air 02/17/18 12:15 99.0 94 16 132/75 (94) 95 Room Air 02/17/18 10:26 95 Room Air 02/17/18 08:25 Room Air 02/17/18 08:23 99.2 110 16 135/76 (95) 95 Room Air I & O 02/18/18 07:00 Intake Total 3917.5 ml Output Total 1000 ml Balance 2917.5 ml Height & Weight Height: 6'1.00" Weight: 250lbs. 6.0oz. 113.390099rl; 31.3 BMI Method:Stated General Appearance: No Apparent Distress HEENT: PERRL/EOMI, TMs Normal Neck: Full Range of Motion, Non Tender, Supple Respiratory: No Accessory Muscle Use, No Respiratory Distress, Decreased Breath Sounds Cardiovascular: Regular Rate, Rhythm, No Edema, No Gallop Capillary Refill: Less Than 3 Seconds Gastrointestinal: non tender, soft, no organomegaly, no pulsatile mass Extremity: Normal Capillary Refill, Other (left aka) Neurologic/Psychiatric: Alert, Oriented x3 Skin: Normal Color, Warm/Dry Results Lab Laboratory Tests 02/17/18 05:45 02/18/18 05:45 Assessment/Plan Assessment/Plan Sepsis with Pneumonia with- community acquired Complicated parapneumonic loculated small to moderate right pleural effusion r/ o empyema - exudative -S/P Thoracentesis -Oncology workup is negative thus far -Merrem . d/c vanco extremely high leukocytosis s/p bone marrow bx -r/o malignancy Tobacco hx Hx of alcohol and drug use Anemia STEVE WATERS DO Feb 18, 2018 07:15
[2018-02-18] MEDS: RT-ALBUTEROL/IPRATROPIUM 3 ML (DUONEB) VIAL INH SCH (07:18)
[2018-02-18] MEDS ORDERED: RT-ALBUTEROL/IPRATROPIUM 3 ML (DUONEB) VIAL INH PRN (07:45)
[2018-02-18] MEDS: GABAPENTIN 400 MG (NEURONTIN) CAP PO SCH ×4 (08:36→21:11)
[2018-02-18] MEDS: PANTOPRAZOLE 40 MG (PROTONIX) TAB PO SCH ×2 (12:17→23:34)
--- NOTE | 2018-02-18 14:53 | Progress Note (SOAP) ---
Subjective Subjective/Events-last exam Reports improvement. Denies SOA, chest pain or other complaints. Review of Systems Date Seen by Provider: Feb 18, 2018 Time Seen by Provider: 08:00 Objective Exam Last Set of Vital Signs Vital Signs Date Time Temp Pulse Resp B/P (MAP) Pulse Ox O2 Delivery O2 Flow Rate FiO2 02/18/18 11:50 98.9 94 18 126/77 (93) 97 Room Air 02/12/18 13:00 2.00 02/12/18 00:30 32 Capillary Refill : Less Than 3 Seconds I&O Intake and Output 02/18/18 00:00 Intake Total 3367.5 ml Output Total 1600 ml Balance 1767.5 ml Intake Oral 1500 ml IV Total 1867.5 ml Output Urine Total 1600 ml # Voids 6 # Bowel Movements 2 General: Alert, Oriented X3, Cooperative Lungs: Clear to Auscultation, Normal Air Movement Heart: Regular Rate Psych/Mental Status: Mood NL Results/Procedures Lab Laboratory Tests 02/18/18 05:45: White Blood Count 68.8*H, Red Blood Count 3.56L, Hemoglobin 10.9L, Hematocrit 34L, Mean Corpuscular Volume 94, Mean Corpuscular Hemoglobin 31, Mean Corpuscular Hemoglobin Concent 32, Red Cell Distribution Width 14.7H, Platelet Count 418H, Mean Platelet Volume 9.3, Sodium Level 138, Potassium Level 4.4, Chloride Level 104, Carbon Dioxide Level 26, Anion Gap 8, Blood Urea Nitrogen 7 , Creatinine 0.57L, Estimat Glomerular Filtration Rate > 60, BUN/Creatinine Ratio 12, Glucose Level 88, Calcium Level 8.3L, Phosphorus Level 4.2, Magnesium Level 1.9 Microbiology 02/11/18 Blood Culture - Final, Complete No growth 02/15/18 Gram Stain - Final, Complete 02/15/18 Body Fluid Culture - Final, Complete No growth 02/11/18 Influenza Types A,B Antigen (JUANA) - Final, Complete 02/11/18 Urine Culture - Final, Complete See Report 02/12/18 Anaerobic Culture - Final, Resulted No anaerobes isolated 02/12/18 Fungal Culture - Preliminary, Resulted No growth Radiology 02/11 CXR: IMPRESSION: 1. Nonspecific right greater than left bibasilar airspace consolidation with probable right-sided pleural effusion. 2. Unchanged cardiomegaly. 02/[address]: CT chest: 1. Small to moderate right pleural effusion of uncertain exact causative etiology. Consider pleural fluid analysis. 2. Nonspecific right lower lobe airspace consolidation which does appear to be along the bronchovascular distribution and somewhat wedge-shaped. 3. Nondiagnostic assessment for pulmonary embolus. Enlarged main pulmonary artery diameter suggesting pulmonary artery hypertension. 4. Prominent right paratracheal, AP window and subcarinal lymph nodes which potentially could relate to the process associated with the right pleural effusion and right lower lobe airspace consolidation. This does increase concern for possibility of infection or neoplasm. 5. Nonspecific stranding of the mediastinal fat which is abnormal. 6. No cardiomegaly. No pericardial effusion. This does appear fairly similar to July 06, 2012. Assessment/Plan Assessment/Plan (1) Sepsis Status: Acute Assessment & Plan: Febrile, leukocytosis and tachycardia with suspected pneumonia on admission. No hypotension or lactic acidosis, no end organ dysfunction. Antibiotics as noted under pneumonia. Qualifiers: Qualified Codes: A41.9 - Sepsis, unspecified organism (2) Pneumonia Status: Acute Assessment & Plan: Meropenem and vancomycin 02/13- remains febrile, no growth yet from pleural fluid, continue abx, US pending per Dr. Sharma to look for encapsulated infection. 02/14- persistent fever and worsening leukocytosis, US with loculated fluid, possible surgery today 02/15- held off on decortication due to concern for malignancy as possible cause more than infection. Repeat thoracentesis done today. Remains febrile, continue meropenem and vancomycin. No growth from cultures to date. 02/16- fever curve decreased, continue vancomycin and meropenem, no growth from cultures. 02/17 afebrile, no growth from cultures. Continue vanc and meropenem, anticipate need for IV antibiotics for quite some time due to severity. 02/18 - Vanc DC'd, continue meropenem; consider Swing Bed if ongoing IV will be necessary. Recommended 10-14 d broad spec antibiotics per Heme. (3) Pleural effusion Status: Acute Assessment & Plan: Pulmonology consulted, thoracentesis done this morning, will follow results of fluid analysis. 02/13- exudative by all 3 Light's criteria, still suspect infection, but differential for exudative is large, if not improving with abx, consider malignancy as noted with leukocytosis. 02/15 repeat thoracentesis 02/17 repeat CXR ordered by Dr. Sharma to check whether fluid reaccumulating 02/18 - improved (4) Leukocytosis Status: Acute Assessment & Plan: Massive, concerning for malignancy, but without blasts and overall consistent with infectious etiology per Hematology. Appreciate recommendations. BCR/ABL negative. Bone marrow biopsy results pending. 02/17 prelim bone marrow tests negative for malignancy, will follow up with Dr. Diamond outpatient for final results. WBC stable today at 72. / - wbc 68.8, trending down (5) Chronic pain Status: Chronic Assessment & Plan: Resume home gabapentin Qualifiers: Qualified Codes: G89.4 - Chronic pain syndrome (6) Depression Status: Chronic Assessment & Plan: Resume home med (7) Anxiety about health Status: Acute Assessment & Plan: Will try hydroxyzine prn, if still feeling significantly anxious, consider low dose lorazepam (8) DVT prophylaxis Status: Acute Assessment & Plan: Enoxaparin- on hold 02/14 for possible procedure, defer to Pulm for resumption Clinical Quality Measures DVT/VTE Risk/Contraindication: Risk Factor Score Per Nursin RFS Level Per Nursing on Admit: 3=High SHIREEN SPANN DO Feb 18, 2018 14:53
[2018-02-18] MEDS: ENOXAPARIN 40 MG/0.4 ML (LOVENOX) SYR SC SCH (17:55)
--- NOTE | 2018-02-18 21:25 | Progress Note ---
Subjective Date Seen by Provider: Feb 18, 2018 Time Seen by Provider: 13:00 Subjective/Events-last exam Patient states feeling better. No abdominal pain. Breathing easier and coughing less. Wbc down slightly today compared to yesterday. Tolerating diet. Denies n/v sweats chills shortness of breath or chest pain. Objective Exam Vital Signs Date Time Temp Pulse Resp B/P (MAP) Pulse Ox O2 Delivery O2 Flow Rate FiO2 02/18/18 20:45 97.7 98 18 132/79 (96) 96 Room Air 02/18/18 16:25 97.1 97 18 118/73 (88) 96 Room Air 02/18/18 15:42 94 Room Air 02/18/18 11:50 98.9 94 18 126/77 (93) 97 Room Air 02/18/18 08:36 98.0 102 18 129/85 (100) 96 Room Air 02/18/18 07:26 103 95 02/18/18 07:18 95 Room Air 02/18/18 05:00 98.3 96 18 139/77 (97) 97 Room Air 02/18/18 00:00 98.0 107 20 132/77 (95) 98 Room Air I & O 02/18/18 07:00 Intake Total 3917.5 ml Output Total 1000 ml Balance 2917.5 ml Capillary Refill : Less Than 3 Seconds General Appearance: No Apparent Distress HEENT: PERRL/EOMI, TMs Normal Neck: Full Range of Motion, Non Tender, Supple Respiratory: No Accessory Muscle Use, No Respiratory Distress, Decreased Breath Sounds Cardiovascular: Regular Rate, Rhythm, No Edema, No Gallop Gastrointestinal: non tender, soft, no organomegaly, no pulsatile mass Extremity: Normal Capillary Refill, Other (left aka) Neurologic/Psychiatric: Alert, Oriented x3 Skin: Normal Color, Warm/Dry Results Lab Laboratory Tests 02/18/18 05:45: White Blood Count 68.8*H, Red Blood Count 3.56L, Hemoglobin 10.9L, Hematocrit 34L, Mean Corpuscular Volume 94, Mean Corpuscular Hemoglobin 31, Mean Corpuscular Hemoglobin Concent 32, Red Cell Distribution Width 14.7H, Platelet Count 418H, Mean Platelet Volume 9.3, Sodium Level 138, Potassium Level 4.4, Chloride Level 104, Carbon Dioxide Level 26, Anion Gap 8, Blood Urea Nitrogen 7 , Creatinine 0.57L, Estimat Glomerular Filtration Rate > 60, BUN/Creatinine Ratio 12, Glucose Level 88, Calcium Level 8.3L, Phosphorus Level 4.2, Magnesium Level 1.9 Microbiology 02/11/18 Blood Culture - Final, Complete No growth 02/15/18 Gram Stain - Final, Complete 02/15/18 Body Fluid Culture - Final, Complete No growth 02/11/18 Influenza Types A,B Antigen (JUANA) - Final, Complete 02/11/18 Urine Culture - Final, Complete See Report 02/12/18 Anaerobic Culture - Final, Resulted No anaerobes isolated 02/12/18 Fungal Culture - Preliminary, Resulted No growth Assessment/Plan Assessment/Plan Assessment/Plan Right complex pleural effusion septated, simple left pleural effusion, right/ left side minimal minimal effusions Pneumonia Fever Leukocytosis History of tobacco and currently use marijuana Patient is a 37-year-old male with a complex right pleural effusion that appears mostly drained at this time, And a simple left pleural effusion. He did undergo bone marrow biopsy awaiting final pathology White blood cell count is decreasing awaiting bone marrow results. I do not feel any surgical intervention at this time is warranted at this time, will follow. Clinical Quality Measures DVT/VTE Risk/Contraindication: Risk Factor Score Per Nursin RFS Level Per Nursing on Admit: 3=High MICHAEL CHRISTIE DO Feb 18, 2018 21:24
[2018-02-19] VITALS: BP 138/82
[2018-02-19] MEDS: HYDROcodone/APAP 7.5 MG/325 MG (LORTAB, LORCET PLUS) TABLET PO PRN ×4 (00:32→18:50)
[2018-02-19 04:00] VITALS: BP 124/70
--- NOTE | 2018-02-19 04:52 | Progress Note ---
Subjective Date Seen by Provider: Feb 19, 2018 Time Seen by Provider: 04:49 Subjective/Events-last exam patient feeling good, was up and around already this morning. not having any breathing issues. right lower extremity with swelling and having some tenderness in it. was trying to use the leg to move his wheelchair, and having discomfort. He states considerably swollen compared to yesterday. Denies n/v fever sweats chills shortness of breath or chest pain. Objective Exam Vital Signs Date Time Temp Pulse Resp B/P (MAP) Pulse Ox O2 Delivery O2 Flow Rate FiO2 02/19/18 04:00 98.5 101 20 124/70 (88) 96 Room Air 02/19/18 00:00 97.6 107 20 138/82 (100) 96 Room Air 02/18/18 20:45 97.7 98 18 132/79 (96) 96 Room Air 02/18/18 16:25 97.1 97 18 118/73 (88) 96 Room Air 02/18/18 15:42 94 Room Air 02/18/18 11:50 98.9 94 18 126/77 (93) 97 Room Air 02/18/18 08:36 98.0 102 18 129/85 (100) 96 Room Air 02/18/18 07:26 103 95 02/18/18 07:18 95 Room Air 02/18/18 05:00 98.3 96 18 139/77 (97) 97 Room Air I & O 02/19/18 07:00 Intake Total 3420 ml Output Total 3400 ml Balance 20 ml Capillary Refill : Less Than 3 Seconds General Appearance: No Apparent Distress HEENT: PERRL/EOMI, TMs Normal Neck: Full Range of Motion, Non Tender, Supple Respiratory: No Accessory Muscle Use, No Respiratory Distress, Decreased Breath Sounds Cardiovascular: Regular Rate, Rhythm, No Edema, No Gallop Gastrointestinal: non tender, soft, no organomegaly, no pulsatile mass Extremity: Normal Capillary Refill, Other (left aka, right lower extremity edema and tenderness with palpation) Neurologic/Psychiatric: Alert, Oriented x3 Skin: Normal Color, Warm/Dry Lymphatic: No Adenopathy Results Lab Laboratory Tests 02/18/18 05:45: White Blood Count 68.8*H, Red Blood Count 3.56L, Hemoglobin 10.9L, Hematocrit 34L, Mean Corpuscular Volume 94, Mean Corpuscular Hemoglobin 31, Mean Corpuscular Hemoglobin Concent 32, Red Cell Distribution Width 14.7H, Platelet Count 418H, Mean Platelet Volume 9.3, Sodium Level 138, Potassium Level 4.4, Chloride Level 104, Carbon Dioxide Level 26, Anion Gap 8, Blood Urea Nitrogen 7 , Creatinine 0.57L, Estimat Glomerular Filtration Rate > 60, BUN/Creatinine Ratio 12, Glucose Level 88, Calcium Level 8.3L, Phosphorus Level 4.2, Magnesium Level 1.9 Microbiology 02/11/18 Blood Culture - Final, Complete No growth 02/15/18 Gram Stain - Final, Complete 02/15/18 Body Fluid Culture - Final, Complete No growth 02/11/18 Influenza Types A,B Antigen (JUANA) - Final, Complete 02/11/18 Urine Culture - Final, Complete See Report 02/12/18 Anaerobic Culture - Final, Resulted No anaerobes isolated 02/12/18 Fungal Culture - Preliminary, Resulted No growth Assessment/Plan Assessment/Plan Assessment/Plan Right complex pleural effusion septated, simple left pleural effusion, right/ left side minimal minimal effusions Pneumonia Fever Leukocytosis History of tobacco and currently use marijuana right lower extremity edema with tenderness Patient is a 37-year-old male with a complex right pleural effusion that appears mostly drained at this time, And a simple left pleural effusion. He did undergo bone marrow biopsy awaiting final pathology White blood cell count is decreasing awaiting bone marrow results Will get venous u/s right lower extremity to evaluate edema/tenderness. I do not feel any surgical intervention at this time is warranted at this time, will follow. Clinical Quality Measures DVT/VTE Risk/Contraindication: Risk Factor Score Per Nursin RFS Level Per Nursing on Admit: 3=High MICHAEL CHRISTIE DO Feb 19, 2018 04:52
[2018-02-19] MEDS: MEROPENEM 500 MG in NS (IVPB) 50 ML IV SCH ×4 (06:08→23:32)
[2018-02-19 06:21] LABS: BASOPHILS # (AUTO) 0.4 10^3/uL (0.0-0.1); BASOPHILS % (AUTO) 1 % (0-10); HEMATOCRIT 34 % (40-54); HEMOGLOBIN 11.1 G/DL (13.3-17.7); LYMPHOCYTES # (AUTO) 4.8 X 10^3 (1.0-4.0); LYMPHOCYTES % (AUTO) 7 % (12-44); MEAN CORPUSCULAR HEMOGLOBIN 31 PG (25-34); MEAN CORPUSCULAR HGB CONC 33 G/DL (32-36); MEAN CORPUSCULAR VOLUME 94 FL (80-99); MEAN PLATELET VOLUME 9.4 FL (7.4-10.4); MONOCYTES # (AUTO) 3.1 X 10^3 (0.0-1.0); MONOCYTES % (AUTO) 5 % (0-12); PLATELET COUNT 430 10^3/uL (130-400); RED BLOOD COUNT 3.58 10^6/uL (4.35-5.85); RED CELL DISTRIBUTION WIDTH 14.4 % (10.0-14.5)
[2018-02-19 06:35] LABS: BILIRUBIN,TOTAL 0.3 MG/DL (0.1-1.0); BUN/CREATININE RATIO 16; CALCIUM 8.6 MG/DL (8.5-10.1); CARBON DIOXIDE 26 MMOL/L (21-32); CHLORIDE 103 MMOL/L (98-107); CREATININE SERUM 0.63 MG/DL (0.60-1.30); GFR ESTIMATED > 60; GLUCOSE 88 MG/DL (70-105); MAGNESIUM 1.9 MG/DL (1.8-2.4); PHOSPHORUS 4.8 MG/DL (2.3-4.7); POTASSIUM 4.6 MMOL/L (3.6-5.0); SODIUM 137 MMOL/L (135-145)
[2018-02-19 06:55] LABS: BAND NEUTROPHILS 4 %; EOSINOPHILS % (MANUAL) 10 %; LYMPHOCYTES % (MANUAL) 51 %; METAMYELOCYTES % 1 %; MONOCYTES % (MANUAL) 7 %; MYELOCYTES % 3 %; NEUTROPHILS % (MANUAL) 28 %
[2018-02-19] MEDS: GABAPENTIN 400 MG (NEURONTIN) CAP PO SCH ×4 (08:18→21:13)
[2018-02-19 08:48] VITALS: BP 122/79
[2018-02-19 12:23] VITALS: BP 132/76
[2018-02-19] MEDS: PANTOPRAZOLE 40 MG (PROTONIX) TAB PO SCH ×2 (12:59→22:57)
--- NOTE | 2018-02-19 13:01 | Progress Note (SOAP) ---
Subjective Subjective/Events-last exam Pt has no new complaints. Reports he is to have a doppler of the RLE per Dr. Hernandez due to swelling in his foot. Review of Systems Date Seen by Provider: Feb 19, 2018 Time Seen by Provider: 10:20 Objective Exam Last Set of Vital Signs Vital Signs Date Time Temp Pulse Resp B/P (MAP) Pulse Ox O2 Delivery O2 Flow Rate FiO2 02/19/18 12:23 97.5 97 20 132/76 (94) 97 Room Air Capillary Refill : Less Than 3 Seconds I&O Intake and Output 02/19/18 00:00 Intake Total 4270 ml Output Total 3400 ml Balance 870 ml Intake Oral 4170 ml IV Total 100 ml Output Urine Total 3400 ml # Voids 3 # Bowel Movements 1 General: Alert, Oriented X3, Cooperative Lungs: Clear to Auscultation, Normal Air Movement Heart: Regular Rate Psych/Mental Status: Mood NL Results/Procedures Lab Laboratory Tests 02/19/18 06:10: White Blood Count 69.0*H, Red Blood Count 3.58L, Hemoglobin 11.1L, Hematocrit 34L, Mean Corpuscular Volume 94, Mean Corpuscular Hemoglobin 31, Mean Corpuscular Hemoglobin Concent 33, Red Cell Distribution Width 14.4, Platelet Count 430H, Mean Platelet Volume 9.4, Neutrophils (%) (Auto) , Lymphocytes (%) ( Auto) 7L, Monocytes (%) (Auto) 5, Eosinophils (%) (Auto) , Basophils (%) (Auto) 1, Neutrophils # (Auto) , Lymphocytes # (Auto) 4.8H, Monocytes # (Auto) 3.1H, Eosinophils # (Auto) , Basophils # (Auto) 0.4H, Neutrophils % (Manual) 28, Lymphocytes % (Manual) 51, Monocytes % (Manual) 7, Eosinophils % (Manual) 10, Metamyelocytes % 1, Myelocytes % 3, Band Neutrophils 4, Sodium Level 137, Potassium Level 4.6, Chloride Level 103, Carbon Dioxide Level 26, Anion Gap 8, Blood Urea Nitrogen 10, Creatinine 0.63, Estimat Glomerular Filtration Rate > 60 , BUN/Creatinine Ratio 16, Glucose Level 88, Calcium Level 8.6, Phosphorus Level 4.8H, Magnesium Level 1.9, Total Bilirubin 0.3 Microbiology 02/11/18 Blood Culture - Final, Complete No growth 02/15/18 Gram Stain - Final, Complete 02/15/18 Body Fluid Culture - Final, Complete No growth 02/11/18 Influenza Types A,B Antigen (JUANA) - Final, Complete 02/11/18 Urine Culture - Final, Complete See Report 02/12/18 Anaerobic Culture - Final, Resulted No anaerobes isolated 02/12/18 Fungal Culture - Preliminary, Resulted No growth Radiology 02/11 CXR: IMPRESSION: 1. Nonspecific right greater than left bibasilar airspace consolidation with probable right-sided pleural effusion. 2. Unchanged cardiomegaly. 02/[address]: CT chest: 1. Small to moderate right pleural effusion of uncertain exact causative etiology. Consider pleural fluid analysis. 2. Nonspecific right lower lobe airspace consolidation which does appear to be along the bronchovascular distribution and somewhat wedge-shaped. 3. Nondiagnostic assessment for pulmonary embolus. Enlarged main pulmonary artery diameter suggesting pulmonary artery hypertension. 4. Prominent right paratracheal, AP window and subcarinal lymph nodes which potentially could relate to the process associated with the right pleural effusion and right lower lobe airspace consolidation. This does increase concern for possibility of infection or neoplasm. 5. Nonspecific stranding of the mediastinal fat which is abnormal. 6. No cardiomegaly. No pericardial effusion. This does appear fairly similar to July 06, 2012. Assessment/Plan Assessment/Plan Assessment & Plan 02/19/18 Pt stable. Day #8/10 of IV Meropenem. RLE doppler pending - to eval for LE swelling per . Likely able to DC on 02/21/[address] Sharma. Will need f/u with Dr. Duncan in 2-3 week after discharge regarding bone marrow bx and severe leukocytosis. Dr. García to assume care in the am. (1) Sepsis Status: Acute Assessment & Plan: Febrile, leukocytosis and tachycardia with suspected pneumonia on admission. No hypotension or lactic acidosis, no end organ dysfunction. Antibiotics as noted under pneumonia. Qualifiers: Qualified Codes: A41.9 - Sepsis, unspecified organism (2) Pneumonia Status: Acute Assessment & Plan: Meropenem and vancomycin 02/13- remains febrile, no growth yet from pleural fluid, continue abx, US pending per Dr. Sharma to look for encapsulated infection. 02/14- persistent fever and worsening leukocytosis, US with loculated fluid, possible surgery today 02/15- held off on decortication due to concern for malignancy as possible cause more than infection. Repeat thoracentesis done today. Remains febrile, continue meropenem and vancomycin. No growth from cultures to date. 02/16- fever curve decreased, continue vancomycin and meropenem, no growth from cultures. 02/17 afebrile, no growth from cultures. Continue vanc and meropenem, anticipate need for IV antibiotics for quite some time due to severity. 02/18 - Vanc DC'd, continue meropenem; consider Swing Bed if ongoing IV will be necessary. Recommended 10-14 d broad spec antibiotics per Heme. 02/19 - Day # [address] Sharma recommends 10d of IV antibiotics before DC - 10d will be 02/21/18. (3) Pleural effusion Status: Acute Assessment & Plan: Pulmonology consulted, thoracentesis done this morning, will follow results of fluid analysis. 02/13- exudative by all 3 Light's criteria, still suspect infection, but differential for exudative is large, if not improving with abx, consider malignancy as noted with leukocytosis. 02/15 repeat thoracentesis 02/17 repeat CXR ordered by Dr. Sharma to check whether fluid reaccumulating 02/18 - improved (4) Leukocytosis Status: Acute Assessment & Plan: Massive, concerning for malignancy, but without blasts and overall consistent with infectious etiology per Hematology. Appreciate recommendations. BCR/ABL negative. Bone marrow biopsy results pending. 02/17 prelim bone marrow tests negative for malignancy, will follow up with Dr. Diamond outpatient for final results. WBC stable today at 72. 02/18 - wbc 68.8, trending down 02/19 - stable at 69 (5) Chronic pain Status: Chronic Qualifiers: Qualified Codes: G89.4 - Chronic pain syndrome (6) Depression Status: Chronic (7) Anxiety about health Status: Acute (8) DVT prophylaxis Status: Acute Clinical Quality Measures DVT/VTE Risk/Contraindication: Risk Factor Score Per Nursin RFS Level Per Nursing on Admit: 3=High SHIREEN SPANN DO Feb 19, 2018 13:01
--- NOTE | 2018-02-19 13:05 | Diagnostic Imaging Report ---
PROCEDURE: US right lower extremity venous. TECHNIQUE: Multiple real-time grayscale images were obtained over the right lower extremity in various projections. Additional duplex Doppler and color Doppler images were also obtained. INDICATION: Right lower extremity edema. Comparison: None available. Findings: The right common femoral, femoral and popliteal veins are patent by color doppler imaging and without DVT. Visualized proximal aspects of the greater saphenous, deep femoral, posterior tibial and peroneal veins are also patent. All of the evaluated deep venous structures demonstrate normal compressibility and waveform augmentation where applicable. Impression: No right lower extremity deep venous thrombosis (DVT). Dictated by: Dictated on workstation # [id number]
[2018-02-19 16:00] VITALS: BP 128/77
[2018-02-19] MEDS: ENOXAPARIN 40 MG/0.4 ML (LOVENOX) SYR SC SCH (18:09)
[2018-02-20] VITALS: BP 128/70
[2018-02-20] MEDS: HYDROcodone/APAP 7.5 MG/325 MG (LORTAB, LORCET PLUS) TABLET PO PRN ×4 (00:54→19:15)
[2018-02-20 04:00] VITALS: BP 139/83
[2018-02-20 05:22] LABS: HEMOGLOBIN 11.3 G/DL (13.3-17.7); RED BLOOD COUNT 3.73 10^6/uL (4.35-5.85); RED CELL DISTRIBUTION WIDTH 14.5 % (10.0-14.5)
[2018-02-20 05:25] LABS: WHITE BLOOD COUNT 68.2 10^3/uL (4.3-11.0)
[2018-02-20] MEDS: MEROPENEM 500 MG in NS (IVPB) 50 ML IV SCH ×4 (05:34→23:45)
[2018-02-20 05:41] LABS: BUN/CREATININE RATIO 17; CALCIUM 8.8 MG/DL (8.5-10.1); CARBON DIOXIDE 27 MMOL/L (21-32); CHLORIDE 103 MMOL/L (98-107); CREATININE SERUM 0.63 MG/DL (0.60-1.30); GFR ESTIMATED > 60; GLUCOSE 95 MG/DL (70-105); PHOSPHORUS 4.1 MG/DL (2.3-4.7); POTASSIUM 4.1 MMOL/L (3.6-5.0); SODIUM 138 MMOL/L (135-145)
[2018-02-20 08:20] VITALS: BP 124/60
[2018-02-20] MEDS: GABAPENTIN 400 MG (NEURONTIN) CAP PO SCH ×4 (08:40→21:14)
[2018-02-20] MEDS: PANTOPRAZOLE 40 MG (PROTONIX) TAB PO SCH ×2 (08:46→23:44)
--- NOTE | 2018-02-20 08:57 | Pulmonary Progress Note ---
Subjective Time Seen by Provider: 12:57 Sepsis Event Evaluation Height, Weight, BMI Height: 6'1.00" Weight: 238lbs. 6.0oz. 107.194891br; 31.3 BMI Method:Stated Exam Exam Vital Signs Date Time Temp Pulse Resp B/P (MAP) Pulse Ox O2 Delivery O2 Flow Rate FiO2 02/20/18 08:20 98.2 95 20 124/60 (81) 96 Room Air 02/20/18 04:00 97.7 101 20 139/83 (101) 97 02/20/18 00:00 98.0 96 20 128/70 (89) 92 Room Air 02/19/18 20:40 94 Room Air 02/19/18 16:00 99.3 91 20 128/77 (94) 97 Room Air 02/19/18 12:23 97.5 97 20 132/76 (94) 97 Room Air I & O 02/20/18 07:00 Intake Total 2170 ml Output Total 2575 ml Balance -405 ml Height & Weight Height: 6'1.00" Weight: 238lbs. 6.0oz. 107.673896sm; 31.3 BMI Method:Stated General Appearance: No Apparent Distress HEENT: PERRL/EOMI, TMs Normal Neck: Full Range of Motion, Non Tender, Supple Respiratory: No Accessory Muscle Use, No Respiratory Distress, Decreased Breath Sounds Cardiovascular: Regular Rate, Rhythm, No Edema, No Gallop Capillary Refill: Less Than 3 Seconds Gastrointestinal: non tender, soft, no organomegaly, no pulsatile mass Extremity: Normal Capillary Refill, Other (left aka, right lower extremity edema and tenderness with palpation) Neurologic/Psychiatric: Alert, Oriented x3 Skin: Normal Color, Warm/Dry Lymphatic: No Adenopathy Results Lab Laboratory Tests 02/19/18 06:10 02/20/18 05:14 Assessment/Plan Assessment/Plan Sepsis with Pneumonia with- community acquired Complicated parapneumonic loculated small to moderate right pleural effusion r/ o empyema - exudative -S/P Thoracentesis -Repeat CXR -Oncology workup is negative thus far -Merrem . - Will D/C extremely high leukocytosis s/p bone marrow bx -r/o malignancy Tobacco hx Hx of alcohol and drug use Anemia STEVE WATERS DO Feb 20, 2018 08:57
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
--- NOTE | 2018-02-20 11:49 | Progress Note ---
Subjective Date Seen by Provider: Feb 20, 2018 Time Seen by Provider: 11:46 Subjective/Events-last exam continues to feel better. breathing easier. less cough. chest x ray no significant pleural effusion on right. awaiting final path on bone marrow. denies n/v fever sweats chills shortness of breath or chest pain at this time. Objective Exam Vital Signs Date Time Temp Pulse Resp B/P (MAP) Pulse Ox O2 Delivery O2 Flow Rate FiO2 02/20/18 10:42 96 Room Air 02/20/18 08:20 98.2 95 20 124/60 (81) 96 Room Air 02/20/18 08:00 Room Air 02/20/18 04:00 97.7 101 20 139/83 (101) 97 02/20/18 00:00 98.0 96 20 128/70 (89) 92 Room Air 02/19/18 20:40 94 Room Air 02/19/18 16:00 99.3 91 20 128/77 (94) 97 Room Air 02/19/18 12:23 97.5 97 20 132/76 (94) 97 Room Air I & O 02/20/18 07:00 Intake Total 2170 ml Output Total 2575 ml Balance -405 ml Capillary Refill : Less Than 3 Seconds General Appearance: No Apparent Distress HEENT: PERRL/EOMI, TMs Normal Neck: Full Range of Motion, Non Tender, Supple Respiratory: No Accessory Muscle Use, No Respiratory Distress, Decreased Breath Sounds Cardiovascular: Regular Rate, Rhythm, No Edema, No Gallop Gastrointestinal: non tender, soft, no organomegaly, no pulsatile mass Extremity: Normal Capillary Refill, Other (left aka, right lower extremity edema and tenderness with palpation) Neurologic/Psychiatric: Alert, Oriented x3 Skin: Normal Color, Warm/Dry Lymphatic: No Adenopathy Results Lab Laboratory Tests 02/20/18 05:14: White Blood Count 68.2*H, Red Blood Count 3.73L, Hemoglobin 11.3L, Hematocrit 35L, Mean Corpuscular Volume 93, Mean Corpuscular Hemoglobin 30, Mean Corpuscular Hemoglobin Concent 33, Red Cell Distribution Width 14.5, Platelet Count 472H, Mean Platelet Volume 9.0, Sodium Level 138, Potassium Level 4.1, Chloride Level 103, Carbon Dioxide Level 27, Anion Gap 8, Blood Urea Nitrogen 11 , Creatinine 0.63, Estimat Glomerular Filtration Rate > 60, BUN/Creatinine Ratio 17, Glucose Level 95, Calcium Level 8.8, Phosphorus Level 4.1, Magnesium Level 2.0 Microbiology 02/11/18 Blood Culture - Final, Complete No growth 02/15/18 Gram Stain - Final, Complete 02/15/18 Body Fluid Culture - Final, Complete No growth 02/11/18 Influenza Types A,B Antigen (JUANA) - Final, Complete 02/11/18 Urine Culture - Final, Complete See Report 02/12/18 Anaerobic Culture - Final, Resulted No anaerobes isolated 02/12/18 Fungal Culture - Preliminary, Resulted No growth Assessment/Plan Assessment/Plan Assessment/Plan Right complex pleural effusion septated, simple left pleural effusion, right/ left side minimal minimal effusions Pneumonia Fever Leukocytosis History of tobacco and currently use marijuana right lower extremity edema with tenderness Patient is a 37-year-old male with a complex right pleural effusion that appears mostly drained at this time, And a simple left pleural effusion. He did undergo bone marrow biopsy awaiting final pathology White blood cell count is decreasing awaiting bone marrow results venous u/s right lower extremity to evaluate edema/tenderness was negative for dvt I do not feel any surgical intervention at this time is warranted at this time, will sign off at this time call if needed. Clinical Quality Measures DVT/VTE Risk/Contraindication: Risk Factor Score Per Nursin RFS Level Per Nursing on Admit: 3=High MICHAEL CHRISTIE DO Feb 20, 2018 11:49
--- NOTE | 2018-02-20 12:44 | Diagnostic Imaging Report ---
INDICATION: Shortness of air. COMPARISON: 02/17/2018. FINDINGS: Frontal and lateral radiographic views of the chest were obtained and show mild cardiomegaly and mild prominence of pulmonary vasculature. There are small bibasilar effusions, left greater than right. There is also mild associated right basilar atelectasis. Overall, aeration is stable compared to prior exam. There is no pneumothorax. Right upper extremity PICC line and postsurgical changes of the right clavicle are also again noted. IMPRESSION: 1. Stable exam of the chest showing small bibasilar effusions with right basilar atelectasis and/or infiltrate. 2. Mild cardiomegaly and pulmonary vascular congestion. Dictated by: Dictated on workstation # [id number]
[2018-02-20 15:47] VITALS: BP 125/70
[2018-02-20] MEDS: ENOXAPARIN 40 MG/0.4 ML (LOVENOX) SYR SC SCH (17:58)
[2018-02-21] VITALS: BP 124/59
[2018-02-21] MEDS: HYDROcodone/APAP 7.5 MG/325 MG (LORTAB, LORCET PLUS) TABLET PO PRN ×2 (01:19→07:52)
[2018-02-21 06:25] LABS: HEMOGLOBIN 11.2 G/DL (13.3-17.7); MEAN PLATELET VOLUME 9.1 FL (7.4-10.4); RED BLOOD COUNT 3.58 10^6/uL (4.35-5.85); RED CELL DISTRIBUTION WIDTH 14.4 % (10.0-14.5)
[2018-02-21 06:26] LABS: WHITE BLOOD COUNT 64.3 10^3/uL (4.3-11.0)
[2018-02-21 06:50] LABS: BUN/CREATININE RATIO 23; CALCIUM 8.8 MG/DL (8.5-10.1); CARBON DIOXIDE 26 MMOL/L (21-32); CHLORIDE 104 MMOL/L (98-107); CREATININE SERUM 0.62 MG/DL (0.60-1.30); GFR ESTIMATED > 60; GLUCOSE 97 MG/DL (70-105); PHOSPHORUS 4.2 MG/DL (2.3-4.7); POTASSIUM 4.3 MMOL/L (3.6-5.0); SODIUM 138 MMOL/L (135-145)
--- NOTE | 2018-02-21 07:23 | Pulmonary Progress Note ---
Sepsis Event Evaluation Height, Weight, BMI Height: 6'1.00" Weight: 238lbs. 6.0oz. 107.978300ph; 31.3 BMI Method:Stated Exam Exam Vital Signs Date Time Temp Pulse Resp B/P (MAP) Pulse Ox O2 Delivery O2 Flow Rate FiO2 02/21/18 00:00 98.3 92 20 124/59 (80) 96 Room Air 02/20/18 21:00 Room Air 02/20/18 15:59 97 Room Air 02/20/18 15:47 98.2 93 20 125/70 (88) 96 Room Air 02/20/18 10:42 96 Room Air 02/20/18 08:20 98.2 95 20 124/60 (81) 96 Room Air 02/20/18 08:00 Room Air I & O 02/21/18 07:00 Intake Total 2950 ml Output Total 3900 ml Balance -950 ml Height & Weight Height: 6'1.00" Weight: 238lbs. 6.0oz. 107.749691pd; 31.3 BMI Method:Stated General Appearance: No Apparent Distress HEENT: PERRL/EOMI, TMs Normal Neck: Full Range of Motion, Non Tender, Supple Respiratory: No Accessory Muscle Use, No Respiratory Distress, Decreased Breath Sounds Cardiovascular: Regular Rate, Rhythm, No Edema, No Gallop Capillary Refill: Less Than 3 Seconds Gastrointestinal: non tender, soft, no organomegaly, no pulsatile mass Extremity: Normal Capillary Refill, Other (left aka, right lower extremity edema and tenderness with palpation) Neurologic/Psychiatric: Alert, Oriented x3 Skin: Normal Color, Warm/Dry Lymphatic: No Adenopathy Results Lab Laboratory Tests 02/20/18 05:14 02/21/18 06:17 Assessment/Plan Assessment/Plan Sepsis with Pneumonia with- community acquired Complicated parapneumonic loculated small to moderate right pleural effusion r/ o empyema - exudative -S/P Thoracentesis -Oncology workup is negative thus far -Merrem . - Will D/C extremely high leukocytosis s/p bone marrow bx -r/o malignancy Tobacco hx Hx of alcohol and drug use Anemia Pt is ok from pulmonary standpoint for discharge with omnicef for x 3-4days. I will see him in my office as out patient. STEVE WATERS DO Feb 21, 2018 07:23
[2018-02-21 08:00] VITALS: BP 128/69
[2018-02-21] MEDS: GABAPENTIN 400 MG (NEURONTIN) CAP PO SCH (08:48)
--- NOTE | 2018-02-21 08:59 | Discharge Summary-Hospitalist ---
EBONIE SHEARER MED STUDENT 02/21/18 0859: Diagnosis/Chief Complaint Date of Admission Feb 11, 2018 at 22:22 Date of Discharge Discharge Diagnosis (1) Pneumonia Status: Acute (2) Sepsis Status: Resolved (3) Pleural effusion Status: Resolved (4) Leukocytosis Status: Resolved Discharge Summary Discharge Physical Exam Allergies: Coded Allergies: penicillin V (Verified Allergy, Intermediate, 08/17/07) Penicillins (Unverified Allergy, Mild, 10/19/08) aspirin (Unverified Allergy, Mild, 10/19/08) codeine (Unverified Allergy, Mild, NAUSEA/VOMITING, 12/05/08) Vitals & I&Os Vital Signs Date Time Temp Pulse Resp B/P (MAP) Pulse Ox O2 Delivery O2 Flow Rate FiO2 02/21/18 00:00 98.3 92 20 124/59 (80) 96 Room Air General Appearance: No Apparent Distress, WD/WN Respiratory: Chest Non Tender, Lungs Clear, Normal Breath Sounds, No Accessory Muscle Use, No Respiratory Distress Cardiovascular: Regular Rate, Rhythm, No Gallop, No JVD, No Murmur Extremity: Non Tender, Pedal Edema Skin: Normal Color, Warm/Dry Neurologic/Psychiatric: Alert, Oriented x3, Normal Mood/Affect Hospital Course Patient is a 37 yo male who presented to ED with cough, congestion, fever, and sore throat. He was subsequently found to test positive for influenza a and b via nasal swab and was diagnosed with a right sided pneumonia and pleural effusion. This effusion was drained by Dr. Sharma. He was subsequently found to have swelling and tenderness in his right lower extremity and a Doppler was performed that was negative for a DVT. His WBC count has been greatly elevated throughout his hospital stay and he had a subsequent bone marrow biopsy, patient was instructed to follow up with Dr. Duncan. His pneumonia was treated with 10 days of IV meropenem and aside from the events discussed here his condition remained stable during his hospital course. He is feeling well today and ready to go home with no concerns. His lung sounds are clear bilaterally and overall he appears well. His right foot remains edematous. Today he is wearing a compression stalking and he believes this has helped the swelling recede. Patient denies any pain and is urinating and having bowel movements regularly without difficulty. Labs (last 24 hrs) Laboratory Tests 02/21/18 06:17: White Blood Count 64.3*H, Red Blood Count 3.58L, Hemoglobin 11.2L, Hematocrit 33L, Mean Corpuscular Volume 93, Mean Corpuscular Hemoglobin 31, Mean Corpuscular Hemoglobin Concent 34, Red Cell Distribution Width 14.4, Platelet Count 414H, Mean Platelet Volume 9.1, Sodium Level 138, Potassium Level 4.3, Chloride Level 104, Carbon Dioxide Level 26, Anion Gap 8, Blood Urea Nitrogen 14 , Creatinine 0.62, Estimat Glomerular Filtration Rate > 60, BUN/Creatinine Ratio 23, Glucose Level 97, Calcium Level 8.8, Phosphorus Level 4.2, Magnesium Level 2.0 Microbiology 02/11/18 Blood Culture - Final, Complete No growth 02/15/18 Gram Stain - Final, Complete 02/15/18 Body Fluid Culture - Final, Complete No growth 02/11/18 Influenza Types A,B Antigen (JUANA) - Final, Complete 02/11/18 Urine Culture - Final, Complete See Report 02/12/18 Anaerobic Culture - Final, Resulted No anaerobes isolated 02/12/18 Fungal Culture - Preliminary, Resulted No growth Patient resulted labs reviewed. Pending Labs Laboratory Tests 02/21/18 06:17: White Blood Count 64.3, Red Blood Count 3.58, Hemoglobin 11.2, Hematocrit 33, Mean Corpuscular Volume 93, Mean Corpuscular Hemoglobin 31, Mean Corpuscular Hemoglobin Concent 34, Red Cell Distribution Width 14.4, Platelet Count 414, Mean Platelet Volume 9.1, Sodium Level 138, Potassium Level 4.3, Chloride Level 104, Carbon Dioxide Level 26, Anion Gap 8, Blood Urea Nitrogen 14, Creatinine 0.62, Estimat Glomerular Filtration Rate > 60, BUN/Creatinine Ratio 23, Glucose Level 97, Calcium Level 8.8, Phosphorus Level 4.2, Magnesium Level 2.0 Discussion & Recommendations Discharge Planning: <30 minutes discharge planning Discharge Home Medications: Active Scripts Active Trintellix (Vortioxetine Hydrobromide) 5 Mg Tablet 5 Mg PO DAILY 1 Days Gabapentin 800 Mg Tablet 800 Mg PO QID 1 Days Diclofenac Sodium 75 Mg Tablet.dr 75 Mg PO BID 1 Days Instructions to patient/family Please see electronic discharge instructions given to patient. Clinical Quality Measures DVT/VTE Risk/Contraindication: Risk Factor Score Per Nursin RFS Level Per Nursing on Admit: 3=High BENJAMIN STEPHENS DO 02/21/18 1128: Diagnosis/Chief Complaint Discharge Diagnosis (1) Leukocytosis Status: Resolved (2) Pleural effusion Status: Resolved (3) Sepsis Status: Resolved (4) Pneumonia Status: Acute (5) Myelodysplastic syndrome Status: Acute Discharge Summary Discharge Physical Exam Allergies: Coded Allergies: penicillin V (Verified Allergy, Intermediate, 08/17/07) Penicillins (Unverified Allergy, Mild, 10/19/08) aspirin (Unverified Allergy, Mild, 10/19/08) codeine (Unverified Allergy, Mild, NAUSEA/VOMITING, 12/05/08) General Appearance: No Apparent Distress, WD/WN Respiratory: Chest Non Tender, Lungs Clear, Normal Breath Sounds, No Accessory Muscle Use, No Respiratory Distress Cardiovascular: Regular Rate, Rhythm, No Edema, No Gallop, No JVD, No Murmur, Normal Peripheral Pulses Neurologic/Psychiatric: Alert, Oriented x3, No Motor/Sensory Deficits, Normal Mood/Affect Hospital Course DC planned Close f/u with [facility] arranged for tomorrow Bone Marrow results will be d/w Oncology I personally have seen and evaluated the patient and performed the physical exam. I agree with the documented assessment and plan. Discussion & Recommendations Discharge Planning: <30 minutes discharge planning Problem Qualifiers (1) Pneumonia: Pneumonia type: due to unspecified organism Laterality: right Lung location : lower lobe of lung Qualified Codes: J18.1 - Lobar pneumonia, unspecified organism (2) Sepsis: Sepsis type: sepsis due to unspecified organism Qualified Codes: A41.9 - Sepsis, unspecified organism (3) Leukocytosis: Leukocytosis type: leukemoid reaction Qualified Codes: D72.823 - Leukemoid reaction EBONIE SHEARER MED STUDENT Feb 21, 2018 08:59 BENJAMIN STEPHENS DO Feb 21, 2018 11:28
[2018-02-21] MEDS ORDERED: CEFDINIR 300 MG (OMNICEF) CAP PO SCH (09:00)
[2018-02-21] MEDS ORDERED: HYDR-34 PO (10:26)
[2018-02-21] MEDS ORDERED: CEFD300C3 PO (10:26)
[2018-02-21] MEDS: PANTOPRAZOLE 40 MG (PROTONIX) TAB PO SCH (10:32)
[2018-02-21 12:00] VITALS: BP 128/69
== END 2018-02-21 12:00 | disposition home or self-care (01) | DRG 871 ==
LOC: EDUNIT# 18:04 → ER 18:06 → ICU 22:22 → 4TH 02-12 13:28
PROVIDERS: ADMIT Family Medicine; ATTEND Family Medicine
PROC: 0W993ZX Drainage of Right Pleural Cavity, Percutaneous Approach, Diagnostic (ICD-10-PCS; principal; 2018-02-13)
PROC: 07DR3ZX Extraction of Iliac Bone Marrow, Percutaneous Approach, Diagnostic (ICD-10-PCS; 2018-02-14)
PROC: 0W993ZX Drainage of Right Pleural Cavity, Percutaneous Approach, Diagnostic (ICD-10-PCS; 2018-02-15)
DX: A41.9 Sepsis, unspecified organism (principal); J18.9 Pneumonia, unspecified organism; J90 Pleural effusion, not elsewhere classified; E87.1 Hypo-osmolality and hyponatremia; J98.11 Atelectasis; D46.9 Myelodysplastic syndrome, unspecified; R60.0 Localized edema; F12.90 Cannabis use, unspecified, uncomplicated; F32.9 Major depressive disorder, single episode, unspecified; E87.6 Hypokalemia; D64.9 Anemia, unspecified; G89.29 Other chronic pain; Z89.612 Acquired absence of left leg above knee; Z90.49 Acquired absence of other specified parts of digestive tract; Z87.891 Personal history of nicotine dependence
CPT/HCPCS: 36415; 36569; 71045; 71046; 71260; 76604; 76937; 80048; 80053; 80202; 80306; 81000; 81270; 82150; 82247; 82945; 83605; 83615; 83735; 83880; 83986; 84100; 84157; 84478; 85007; 85025; 85027; 85045; 85379; 85384; 85610; 85730; 87040; 87070; 87075; 87081; 87088; 87101; 87205; 87430; 87804; 88112; 88184; 88185; 88237; 88264; 88280; 88305; 88311; 88313; 88368; 88369; 89051; 94640; 94760; 96361; 96365; 96375

== ENCOUNTER → 2018-03-29 | Outpatient (CLI) | payer MEDICARE ==
[~2018-03-29] MED LIST changes: +CEFD300C3 PO; +DICL75TA2; +DICL75TA2 PO; +GABA800T2; +GABA800T2 PO; +HYDR-34 PO; +IOHEXOL 350 MG/ML 100 ML (OMNIPAQUE 350) VIAL IV ONE; +NS 250 ML (IVPB) BAG IV ONE; +VORT5TAB; +VORT5TAB PO
--- NOTE | 2018-03-29 11:16 | Diagnostic Imaging Report ---
PROCEDURE: CT chest with contrast only. TECHNIQUE: Multiple contiguous axial images were obtained through the chest after administration of intravenous contrast. INDICATION: Dyspnea. COMPARISON: Comparison is made with prior CT chest from 02/14/2018. FINDINGS: No axillary lymphadenopathy is seen. Mildly prominent mediastinal lymph nodes appear to be stable. The michael are unremarkable. No pericardial fluid is seen. Previously noted bilateral pleural effusions, greater on the right have resolved. Previously seen airspace infiltrate in the right lower lobe has also nearly completely resolved. Only minimal residual density remains. No mass is identified. Upper abdomen is stable. IMPRESSION: Resolution of bilateral pleural effusions and right basilar airspace infiltrates when compared with prior CT from 02/14/2018. Mildly prominent mediastinal lymph nodes are stable. No new abnormality is detected. Dictated by: Dictated on workstation # [id number]
== END ==
LOC: RT 09:07
PROVIDERS: ATTEND Nurse Practitioner Family
DX: R06.00 Dyspnea, unspecified (principal); D72.1 Eosinophilia; D72.829 Elevated white blood cell count, unspecified; F17.201 Nicotine dependence, unspecified, in remission; R59.0 Localized enlarged lymph nodes
CPT/HCPCS: 71260; 94060; 94726; 94729

== ENCOUNTER → 2018-07-17 | Outpatient (CLI) | payer MEDICARE ==
[~2018-07-17] MED LIST changes: +GABA800T10; +GABA800T10 PO; -GABA800T2; -GABA800T2 PO; -IOHEXOL 350 MG/ML 100 ML (OMNIPAQUE 350) VIAL IV ONE; -NS 250 ML (IVPB) BAG IV ONE
== END ==
LOC: CARD 10:12
PROVIDERS: ATTEND Internal Medicine Hematology & Oncology
DX: D72.1 Eosinophilia (principal); R06.00 Dyspnea, unspecified
CPT/HCPCS: 93306

== ENCOUNTER 2018-08-07 12:44 | Outpatient (RCR) | payer MEDICARE, OTHER ==
[2018-07-17 10:43] LABS: ALANINE AMINOTRANSFERASE 25 U/L (0-55); ALBUMIN 4.2 GM/DL (3.2-4.5); ALKALINE PHOSPHATASE 62 U/L (40-136); BILIRUBIN,TOTAL 0.4 MG/DL (0.1-1.0); BUN/CREATININE RATIO 17; CALCIUM 9.4 MG/DL (8.5-10.1); CARBON DIOXIDE 24 MMOL/L (21-32); CHLORIDE 105 MMOL/L (98-107); CREATININE SERUM 0.71 MG/DL (0.60-1.30); ERYTHROCYTE SEDIMENTATION RATE 5 MM/HR (0-15); GFR ESTIMATED > 60; GLUCOSE 123 MG/DL (70-105); POTASSIUM 3.8 MMOL/L (3.6-5.0); SODIUM 141 MMOL/L (135-145); TOTAL PROTEIN 6.9 GM/DL (6.4-8.2)
[2018-07-17 10:50] LABS: BASOPHILS # (AUTO) 0.3 10^3/uL (0.0-0.1); BASOPHILS % (AUTO) 3 % (0-10); EOSINOPHILS % (AUTO) 10 % (0-10); HEMATOCRIT 45 % (40-54); HEMOGLOBIN 15.2 G/DL (13.3-17.7); LYMPHOCYTES % (AUTO) 29 % (12-44); MEAN CORPUSCULAR HEMOGLOBIN 29 PG (25-34); MEAN CORPUSCULAR HGB CONC 34 G/DL (32-36); MEAN CORPUSCULAR VOLUME 86 FL (80-99); MEAN PLATELET VOLUME 11.4 FL (7.4-10.4); MONOCYTES # (AUTO) 0.8 X 10^3 (0.0-1.0); MONOCYTES % (AUTO) 8 % (0-12); NEUTROPHILS # (AUTO) 5.2 X 10^3 (1.8-7.8); NEUTROPHILS % (AUTO) 50 % (42-75); PLATELET COUNT 246 10^3/uL (130-400); RED CELL DISTRIBUTION WIDTH 14.9 % (10.0-14.5); WHITE BLOOD COUNT 10.4 10^3/uL (4.3-11.0)
[2018-07-25 06:41] LABS: MISC LAB TEST & RESULT T CELL GENE R
== END 2018-10-15 | disposition home or self-care (01) ==
LOC: ONC 12:44
PROVIDERS: ATTEND Internal Medicine Hematology & Oncology
DX: D72.1 Eosinophilia (principal); D64.9 Anemia, unspecified; Z89.612 Acquired absence of left leg above knee
CPT/HCPCS: 80053; 83615; 85025; 85652; 86038; 86141; 99213